=== PATIENT | female | born 1930 | race Caucasian/White ===

== ENCOUNTER 2018-01-11 10:06 | Emergency (ER) | payer MEDICARE, BC ==
[2018-01-11 10:39] LABS: #Basophils 0.1 thou/uL (0.0-0.2); #Eosinphils 0.1 thou/uL (0.0-0.7); #Lymphocytes 1.4 thou/uL (1.20-3.40); #Monocytes 0.6 thou/uL (0.11-0.59); #Neutrophils 5.5 thou/uL (1.40-6.50); %Basophils 0.7 % (0.0-1.0); %Eosinophils 0.9 % (0.0-10.0); %Lymphocytes 17.8 % (21.0-51.0); %Monocytes 8.5 % (0.0-10.0); %Neutrophils 72.1 % (42.0-75.0); Hemoglobin 12.8 g/dL (12.0-16.0); Mean Corpuscular HGB CONC 33.1 g/dL (32.0-36.0); Mean Corpuscular Hemoglobin 30.2 pg (27.0-31.0); Mean Platelet Volume 6.1 fL (7.4-10.4); Platelet Count 313 thou/uL (130-400); RBC Distribution Width 11.9 % (11.5-14.5); Red Blood Cell (RBC) Count 4.26 mill/uL (4.20-5.40); White Blood Cell (WBC) Count 7.6 thou/uL (4.8-10.8)
[2018-01-11 10:57] LABS: ALT (SGPT) 17 U/L (8-55); AST (SGOT) 23 U/L (5-34); Albumin 4.4 g/dL (3.4-4.8); Alkaline Phosphatase 81 U/L (40-150); Anion Gap 13 mmol/L (10-20); BUN (Urea Nitrogen) 17 mg/dL (9.8-20.1); Bilirubin, Total 0.9 mg/dL (0.2-1.2); Calc. Creatinine Clearance 0 mL/min (70-130); Calcium 9.6 mg/dL (7.8-10.44); Carbon Dioxide 26 mmol/L (23-31); Chloride 92 mmol/L (98-107); Estimated GFR-MDRD 63; Glucose 117 mg/dL (83-110); Protein, Total 7.4 g/dL (6.0-8.3); Sodium 127 mmol/L (136-145)
[2018-01-11 11:02] LABS: CKMB 2.1 ng/mL (0-6.6); Troponin I Less than 0.010 ng/mL (< 0.028)
[2018-01-11 12:07] LABS: Bilirubin Negative (Negative); Blood, Urine Negative (Negative); Clarity CLOUDY (Clear); Glucose, Urine (Dipstick) Negative (Negative); Leukocyte Negative (Negative); Nitrite Negative (Negative); Protein, Urine (Dipstick) Negative (Neg-Trace); pH, Urine 7.5 (5.0-9.0)
== END 2018-01-11 14:16 | disposition home or self-care (01) ==
LOC: ERS 10:06
DX: R11.2 Nausea with vomiting, unspecified (principal); E78.5 Hyperlipidemia, unspecified; I10 Essential (primary) hypertension
CPT/HCPCS: 36415; 80053; 81003; 82553; 84484; 85025; 93005; 96360; 96361

== ENCOUNTER 2018-01-15 13:44 | Inpatient (IN) | payer MEDICARE, BC ==
[2018-01-15 15:41] LABS: #Basophils 0.1 thou/uL (0.0-0.2); #Eosinphils 0.2 thou/uL (0.0-0.7); #Lymphocytes 1.6 thou/uL (1.20-3.40); %Basophils 0.7 % (0.0-1.0); %Eosinophils 1.8 % (0.0-10.0); %Lymphocytes 18.4 % (21.0-51.0); %Monocytes 11.4 % (0.0-10.0); %Neutrophils 67.7 % (42.0-75.0); Hemoglobin 11.5 g/dL (12.0-16.0); Mean Corpuscular HGB CONC 33.4 g/dL (32.0-36.0); Mean Corpuscular Hemoglobin 30.7 pg (27.0-31.0); Mean Corpuscular Volume 91.9 fL (78.0-98.0); Mean Platelet Volume 6.4 fL (7.4-10.4); Platelet Count 271 thou/uL (130-400); Red Blood Cell (RBC) Count 3.74 mill/uL (4.20-5.40); White Blood Cell (WBC) Count 8.8 thou/uL (4.8-10.8)
[2018-01-15 15:53] LABS: ALT (SGPT) 11 U/L (8-55); AST (SGOT) 18 U/L (5-34); Albumin 3.6 g/dL (3.4-4.8); Alkaline Phosphatase 68 U/L (40-150); Anion Gap 10 mmol/L (10-20); BUN (Urea Nitrogen) 23 mg/dL (9.8-20.1); Bilirubin, Total 0.4 mg/dL (0.2-1.2); Calc. Creatinine Clearance 0 mL/min (70-130); Calcium 8.7 mg/dL (7.8-10.44); Carbon Dioxide 26 mmol/L (23-31); Chloride 94 mmol/L (98-107); Estimated GFR-MDRD 65; Globulin 2.5 g/dL (2.4-3.5); Glucose 93 mg/dL (83-110); Lipase 38 U/L (8-78); Potassium 3.7 mmol/L (3.5-5.1); Protein, Total 6.1 g/dL (6.0-8.3); Sodium 126 mmol/L (136-145)
--- NOTE | 2018-01-15 16:08 | RAD ---
ABDOMEN TWO VIEWS CHEST ONE VIEW 01/15/18 HISTORY: 87-year-old female with history of pain. No significant acute intrathoracic disease. There is atherosclerosis of the aorta with some ectasia. Somewhat S-shaped scoliosis of the lower thoracic and lumbar spines. Gas and fecal material noted in the colon. No free intraperitoneal air. No evidence for bowel obstruction. IMPRESSION: No bowel obstruction or free intraperitoneal air. 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 Atherosclerosis of the aorta with some ectasia. No acute intrathoracic disease. POS: [facility]
[2018-01-15 17:15] LABS: Bilirubin Negative (Negative); Blood, Urine Negative (Negative); Clarity CLEAR (Clear); Glucose, Urine (Dipstick) Negative (Negative); Leukocyte Moderate (Negative); Nitrite Negative (Negative); Protein, Urine (Dipstick) Negative (Neg-Trace); Specific Gravity, Urine 1.005 (1.002-1.036)
[2018-01-15 17:17] LABS: Bacteria/HPF None Seen HPF (None Seen); Hyaline Casts/LPF 0-3 HYALINE CAST LPF (0-3 Hyaline); Pathc Cast-AUWi Flag 0.14 (0-2.49); RBC/HPF 0-3 HPF (0-3); Squamous Epithelial None Seen HPF (0-3)
[2018-01-15] MEDS ORDERED: Sodium Chloride 0.9% 1,000 ML IV SCH (17:34)
[2018-01-15] MEDS ORDERED: Senokot 8.6 MG TAB PO PRN (17:34)
[2018-01-15] MEDS ORDERED: Ondansetron HCl/PF 4 MG/2 ML Vial IVP PRN (17:34)
[2018-01-15] MEDS ORDERED: Acetaminophen 325 MG TAB PO PRN (17:34)
[2018-01-15] MEDS ORDERED: Guaifenesin DM 100-10/5 ML UDCUP PO PRN (17:34)
[2018-01-15 18:14] LABS: Thyroid Stimulating Hormone 1.4975 uIU/mL (0.35-4.94)
[2018-01-15] MEDS: Docusate 100 MG CAP PO SCH (19:54)
[2018-01-15] MEDS: Rosuvastatin 20 MG TAB PO SCH (19:54)
[2018-01-15] MEDS: Lisinopril 10 MG TAB PO SCH (19:54)
[2018-01-15] MEDS: Famotidine 20 MG TAB PO SCH (19:55)
[2018-01-15 21:33] LABS: Anion Gap 11 mmol/L (10-20); BUN (Urea Nitrogen) 19 mg/dL (9.8-20.1); Calc. Creatinine Clearance 0 mL/min (70-130); Calcium 8.8 mg/dL (7.8-10.44); Carbon Dioxide 26 mmol/L (23-31); Chloride 95 mmol/L (98-107); Estimated GFR-MDRD 67; Glucose 107 mg/dL (83-110); Potassium 3.6 mmol/L (3.5-5.1); Sodium 128 mmol/L (136-145)
--- NOTE | 2018-01-15 23:10 | HP ---
REASON FOR ADMISSION: Severe dehydration, hyponatremia. HISTORY OF PRESENT ILLNESS: Patient gives history of having intractable nausea , vomiting, and went to see her primary care physician on Thursday. She was given 2 liters of IV fluid along with nausea medications. Her initial sodium level was 127. Two days later, patient was still having nauseating feeling and was not able to keep anything down and had gone to see her primary care physician. A repeat lab was done which was 126 sodium. She was feeling dizzy and in fact was taking Zofran 3-4 times a day. Her labs came back to her primary care this morning and patient was asked to go to the emergency room as her sodium was not improving and patient was getting symptomatic. Patient states she is also constipated and her last bowel movement was 3 days back. No prior diarrhea. She is not nauseated at present. She has never had colonoscopy in the past as far she could remember. No complaints of any specific weakness in any of the extremities. PAST MEDICAL/SURGICAL HISTORY: Hypertension, coronary artery disease with prior stent placed in 09/1997, dyslipidemia right wrist/thumb surgery. CURRENT MEDICATIONS: Patient is on Norvasc 5 mg daily, Bystolic 10 mg daily, lisinopril 20 mg daily, Crestor 20 mg p.o. at bedtime, fish oil 3 grams daily, aspirin 81 mg daily, vitamin D3 of 2000 units p.o. daily. ALLERGIES: NORCO, IODINE, PHENOBARBITAL, [place] BARBITURATES. PERSONAL HISTORY: Does not abuse alcohol or drugs. She lives at [facility] assisted living with her . She ambulates by herself. FAMILY HISTORY: Both parents are . Father had history of diabetes. Mother of myocardial infarction and coronary artery disease at the age of 51 years. REVIEW OF SYSTEMS: The following complete review of systems was negative, unless otherwise mentioned in the HPI or below: Constitutional: Weight loss or gain, ability to conduct usual activities. Skin: Rash, itching. Eyes: Double vision, pain. ENT/Mouth: Nose bleeding, neck stiffness, pain, tenderness. Cardiovascular: Palpitations, dyspnea on exertion, orthopnea. Respiratory: Shortness of breath, wheezing, cough, hemoptysis, fever or night sweats. Gastrointestinal: Poor appetite, abdominal pain, heartburn, nausea, vomiting, constipation, or diarrhea. Genitourinary: Urgency, frequency, dysuria, nocturia. Musculoskeletal: Pain, swelling. Neurologic/Psychiatric: Anxiety, depression. Allergy/Immunologic: Skin rash, bleeding tendency. PHYSICAL EXAMINATION: GENERAL: Patient is an 87-year-old female who is currently not in any acute distress. VITAL SIGNS: Blood pressure 162/58, pulse 58 per minute, respiratory rate 18 per minute, temperature 97.7 degrees Fahrenheit, saturating 95% on room air. NECK: Supple, no elevated JVD. HEENT: Eyes, extraocular muscles intact. Pupils reacting to light. Oral cavity, mucous membranes are dry. No exudates or congestion. CARDIOVASCULAR: S1, S2 heard. Regular rhythm. RESPIRATORY: Air entry 1+ bilaterally. No rales or rhonchi. ABDOMEN: Soft. Mild tenderness in the lower quadrants. No rigidity or guarding. Bowel sounds are heard. EXTREMITIES: No peripheral edema or calf tenderness. VASCULAR SYSTEM: Peripheral pulses 2+ bilateral, no ischemic ulcerations or gangrene. CENTRAL NERVOUS SYSTEM: No gross focal motor deficits noted. Patient is alert and oriented well. PSYCHIATRIC: Patient's mood is euthymic. No hallucinations or delusions. LABORATORY AND X-RAY FINDINGS: White count of 8.8, H&H 11 and 34, platelet count 271 with 67% neutrophils. Sodium 126. Serum chloride is 94, serum bicarbonate 26, BUN 23, creatinine 0.8, serum glucose is 93. Serum osmolality is 267. TSH 1.49. BNP is 29. Liver enzymes within normal limits. Albumin is 3.6. UA shows moderate leukocyte esterase with 11-20 wbc's, but no bacteria seen. Acute abdominal series plain x-ray done shows no bowel obstruction or free intraperitoneal air. There is a scoliosis with lumbar spine and thoracic spine spondylosis seen in the stool in the colon. CLINICAL IMPRESSION AND PLAN: Patient will be admitted to medical floor for hyponatremia, moderate to severe dehydration. She will be on normal saline at 70 mL per hour. We will continue her home medications of Norvasc, Crestor, Bystolic, and fish oil for now. Lisinopril will be switched to 10 mg twice daily. We will obtain a metabolic panel in the morning. Hyponatremia workup is being done. We will see the trend of sodium levels. If this normalizes likely, the patient could go home tomorrow. If not, she might have to stay until it gets normalized or at least close to normal prior to discharge. We will continue to closely monitor her on medical floor. Code status was discussed with the patient and she wants to be DNR. Her power of senior attorney is her . DEION
[2018-01-16 05:17] LABS: #Basophils 0.1 thou/uL (0.0-0.2); #Eosinphils 0.3 thou/uL (0.0-0.7); #Lymphocytes 1.4 thou/uL (1.20-3.40); #Monocytes 0.9 thou/uL (0.11-0.59); #Neutrophils 4.3 thou/uL (1.40-6.50); %Basophils 0.7 % (0.0-1.0); %Lymphocytes 20.8 % (21.0-51.0); %Neutrophils 61.4 % (42.0-75.0); Hemoglobin 12.3 g/dL (12.0-16.0); Mean Corpuscular HGB CONC 33.6 g/dL (32.0-36.0); Mean Corpuscular Hemoglobin 30.8 pg (27.0-31.0); Mean Corpuscular Volume 91.5 fL (78.0-98.0); Mean Platelet Volume 6.4 fL (7.4-10.4); Platelet Count 281 thou/uL (130-400); RBC Distribution Width 11.9 % (11.5-14.5); White Blood Cell (WBC) Count 6.9 thou/uL (4.8-10.8)
[2018-01-16 05:36] LABS: Anion Gap 8 mmol/L (10-20); BUN (Urea Nitrogen) 17 mg/dL (9.8-20.1); Calc. Creatinine Clearance 0 mL/min (70-130); Calcium 9.4 mg/dL (7.8-10.44); Carbon Dioxide 30 mmol/L (23-31); Chloride 97 mmol/L (98-107); Estimated GFR-MDRD 68; Glucose 93 mg/dL (83-110); Potassium 4.3 mmol/L (3.5-5.1); Sodium 131 mmol/L (136-145)
[2018-01-16 05:51] LABS: Creatinine, Urine 26.98 mg/dL (47-110)
[2018-01-16 06:36] VITALS: BMI 18.8
[2018-01-16] MEDS: Docusate 100 MG CAP PO SCH ×2 (08:43→20:46)
[2018-01-16] MEDS: Amlodipine 10 MG TAB PO SCH (08:44)
[2018-01-16] MEDS: Lisinopril 10 MG TAB PO SCH (08:44)
[2018-01-16] MEDS: Famotidine 20 MG TAB PO SCH ×2 (08:44→20:46)
[2018-01-16] MEDS: Enoxaparin Sodium 40 MG/0.4 ML SYRINGE SC SCH (08:45)
[2018-01-16] MEDS: Polyethylene Glycol 3350 17 GM Packet PO SCH (08:51)
--- NOTE | 2018-01-16 09:32 | CON ---
DATE OF CONSULTATION: 01/15/2018 at 7:00 p.m. NEPHROLOGY CONSULTATION REASON FOR CONSULTATION: Hyponatremia. HISTORY OF PRESENT ILLNESS: This is a very pleasant 87-year-old female who presented to the hospital for feeling dehydrated. The patient was noted to have low sodium, so I was consulted. Sodium was 1 26 on admission. The patient was given normal saline with improvement in sodium. At time of examina tion, sodium was 128, osmolality was 267. Patient denies any other complaints. PAST MEDICAL HISTORY: Significant for hypertension, coronary artery disease, stent, hyperlipidemia. HOME MEDICATIONS: List reviewed. HOSPITAL MEDICATIONS: List reviewed. ALLERGIES: Reviewed. FAMILY HISTORY: Negative for ESRD. REVIEW OF SYSTEMS: A 15-point review of systems was performed and was negative except for positives noted above. GENERAL: Weakness- HEAD: Headache- NECK: No swelling or lumps. NOSE: No epistaxis or discharge. EYES: No diplopia or pain. RESPIRATORY: Dyspnea- CARDIOVASCULAR: Chest pain- GASTROINTESTINAL: Nausea- /MANAGER RESEARCH: Hematuria- MUSCULOSKELETAL: No joint pain. NEUROPSYCHIATIC SYSTEMS: No suicidal ideation. No ideation. SKIN: Denies any rash or ulcer. CONSTITUTIONAL: No fever or chills. PHYSICAL EXAMINATION: GENERAL: Patient is awake, alert. VITAL SIGNS: Afebrile, pulse 59, breathing 16, blood pressure 159/68. HEAD/NECK: Normocephalic. Atraumatic. EYES: EOMI. No deformity. EARS: Clear. No ulcers. NOSE: Intact. No lesions. MOUTH: Clear. No discharge. THROAT: Clear. No exudate. LUNGS: Clear. No crackles. CARDIAC: S1, S2. No rub. ABDOMEN: Benign. BS+. GENITALIA/RECTUM: Banks absent. BACK/EXTREMITIES: Edema 0+ Ulcer- NEUROLOGICAL: Alert and motor intact. SKIN: Rash- Bruise- LYMPHATICS: Edema- Ulcer- LABORATORY DATA: Show creatinine 0.8, sodium 128. ASSESSMENT AND RECOMMENDATIONS: 1. 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 Recommend fluid restriction. 2. Hypertension, stable. 3. Medications based on GFR are appropriate. We will follow labs in the morning.
--- NOTE | 2018-01-16 11:15 | PRG ---
DATE OF SERVICE: 01/16/2018 SUBJECTIVE: This is an 87-year-old female being seen for hyponatremia. The patient denies any nause a, vomiting, or chest pain. PHYSICAL EXAMINATION: GENERAL: Patient is awake, alert. VITAL SIGNS: Afebrile, pulse 59, breathing 16, blood pressure 159/68. HEAD/NECK: Normocephalic. Atraumatic. EYES: EOMI. No deformity. EARS: Clear. No ulcers. NOSE: Intact. No lesions. MOUTH: Clear. No discharge. THROAT: Clear. No exudate. LUNGS: Clear. No crackles. CARDIAC: S1, S2. No rub. ABDOMEN: Benign. BS+. GENITALIA/RECTUM: Banks absent. BACK/EXTREMITIES: Edema 0+ Ulcer- NEUROLOGICAL: Alert and motor intact. SKIN: Rash- Bruise- LYMPHATICS: Edema- Ulcer- LABORATORY DATA: Show sodium 131. ASSESSMENT AND RECOMMENDATIONS: 1. Hyponatremia, improved. 2. Chronic kidney disease stage 2, stable. 3. Hypertension, stable. Recommend a 1500 mL fluid restriction.
--- NOTE | 2018-01-16 11:24 | PDOC.PN ---
- Subjective Encounter Start Date: 01/16/18 Encounter Start Time: 10:40 Subjective: awake, oriented well, no sob or specific weaness -: is ambulating in room - Objective Resuscitation Status: Resuscitation Status DNR:Do Not Resuscitate MAR Reviewed: Yes Vital Signs & Weight: Vital Signs (12 hours) Temp Pulse Resp BP BP BP Pulse Ox 01/16/18 08:44 59 L 159/68 H 01/16/18 08:00 97.9 F 59 L 16 159/68 H 96 01/16/18 04:00 97.5 F L 54 L 18 153/65 H 98 01/16/18 00:00 97.5 F L 54 L 18 130/61 94 L Weight Weight 113 lb 7 oz Result Diagrams: 01/16/18 04:36 01/16/18 04:36 Phys Exam - Physical Examination HEENT: PERRLA, moist MMs Neck: no JVD, supple Respiratory: no wheezing, no rales Cardiovascular: RRR, no significant murmur Gastrointestinal: soft, non-tender, positive bowel sounds Musculoskeletal: no edema, pulses present Neurological: non-focal, moves all 4 limbs Psychiatric: normal affect, A&O x 3 Dx/Plan (1) Hyponatremia Code(s): E87.1 - HYPO-OSMOLALITY AND HYPONATREMIA Status: Acute (2) Dehydration Code(s): E86.0 - DEHYDRATION Status: Resolved (3) HTN (hypertension) Code(s): I10 - ESSENTIAL (PRIMARY) HYPERTENSION Status: Chronic Qualifiers: Hypertension type: essential hypertension Qualified Code(s): I10 - Essential (primary) hypertension (4) Dyslipidemia Code(s): E78.5 - HYPERLIPIDEMIA, UNSPECIFIED Status: Chronic (5) CAD (coronary artery disease) Code(s): I25.10 - ATHSCL HEART DISEASE OF [place] CORONARY ARTERY W/O ANG PCTRS Status: Chronic Qualifiers: Coronary Disease-Associated Artery/Lesion type: [place] artery [place] vs. transplanted heart: [place] heart Associated angina: without angina Qualified Code(s): I25.10 - Atherosclerotic heart disease of [place] coronary artery without angina pectoris - Plan sodium is 131 this am and improving -: encourage po intake -: to ambulate prn -: continue norvasc, lisinopril, asp and crestor -: dc plan in am * . Review of Systems - Medications/Allergies Allergies/Adverse Reactions: Allergies Allergy/AdvReac Type Severity Reaction Status Date / Time Barbiturates Allergy Verified 01/15/18 19:39 Medications: Current Medications Acetaminophen (Tylenol) 650 mg PO Q4H PRN PRN Reason: Headache/Fever or Pain Amlodipine Besylate (Norvasc) 10 mg PO DAILY [facility] Last Admin: 01/16/18 08:44 Dose: 10 mg Aspirin (Aspirin Chewable) 81 mg PO DAILY [facility] Last Admin: 01/16/18 08:44 Dose: 81 mg Docusate Sodium (Colace) 100 mg PO BID [facility] Last Admin: 01/16/18 08:43 Dose: 100 mg Enoxaparin Sodium (Lovenox) 40 mg SC 0900 [facility] Last Admin: 01/16/18 08:45 Dose: 40 mg Famotidine (Pepcid) 20 mg PO BID [facility] Last Admin: 01/16/18 08:44 Dose: 20 mg Guaifenesin/Dextromethorphan (Robitussin Dm) 15 ml PO Q4H PRN PRN Reason: Cough Lisinopril (Zestril) 10 mg PO BID [facility] Last Admin: 01/16/18 08:44 Dose: 10 mg Ondansetron HCl (Zofran) 4 mg IVP Q6H PRN PRN Reason: Nausea/Vomiting Polyethylene Glycol (Miralax) 17 gm PO DAILY [facility] Last Admin: 01/16/18 08:51 Dose: 17 gm Rosuvastatin Calcium (Crestor) 20 mg PO HS [facility] Last Admin: 01/15/18 19:54 Dose: 20 mg Senna (Senokot) 2 tab PO HSPRN PRN PRN Reason: Constipation Sodium Chloride (Flush - Normal Saline) 10 ml IVF Q12HR [facility] Last Admin: 01/16/18 08:45 Dose: 10 ml Sodium Chloride (Flush - Normal Saline) 10 ml IVF PRN PRN PRN Reason: Saline Flush
[2018-01-16] MEDS: Rosuvastatin 20 MG TAB PO SCH (20:46)
[2018-01-17 06:05] LABS: Anion Gap 12 mmol/L (10-20); BUN (Urea Nitrogen) 29 mg/dL (9.8-20.1); Calc. Creatinine Clearance 29 mL/min (70-130); Calcium 9.6 mg/dL (7.8-10.44); Carbon Dioxide 28 mmol/L (23-31); Chloride 96 mmol/L (98-107); Estimated GFR-MDRD 46; Glucose 95 mg/dL (83-110); Potassium 4.5 mmol/L (3.5-5.1); Sodium 131 mmol/L (136-145)
[2018-01-17] MEDS: Polyethylene Glycol 3350 17 GM Packet PO SCH (08:22)
[2018-01-17] MEDS: Enoxaparin Sodium 40 MG/0.4 ML SYRINGE SC SCH (08:22)
[2018-01-17] MEDS: Famotidine 20 MG TAB PO SCH (08:23)
[2018-01-17] MEDS: Docusate 100 MG CAP PO SCH (08:27)
[2018-01-17] MEDS: Amlodipine 10 MG TAB PO SCH (08:27)
[2018-01-17 08:28] VITALS: BP 166/73
[2018-01-17] MEDS ORDERED: Ciprofloxacin 500 MG TAB PO SCH ×2 (08:30→20:00)
[2018-01-17 08:40] VITALS: TEMP 98.1
[2018-01-17] MEDS ORDERED: Lisinopril 20 MG TAB PO SCH (09:00)
--- NOTE | 2018-01-17 11:28 | PDOC.PN ---
- Subjective Encounter Start Date: 01/17/18 Encounter Start Time: 09:00 Subjective: is amb, no weakness or nausea/diarrhea -: had bm yesterday -: feels good - Objective Resuscitation Status: Resuscitation Status DNR:Do Not Resuscitate MAR Reviewed: Yes Vital Signs & Weight: Vital Signs (12 hours) Temp Pulse Resp BP BP Pulse Ox 01/17/18 08:27 71 166/73 H 01/17/18 08:23 166/73 H 01/17/18 08:00 98.1 F 71 16 166/73 H 95 Weight Admit Weight 113 lb 7 oz Weight 127 lb 8 oz I&O: 01/16/18 01/17/18 01/18/18 06:59 06:59 06:59 Intake Total 900 480 Balance 900 480 Result Diagrams: 01/16/18 04:36 01/17/18 05:23 Phys Exam - Physical Examination HEENT: PERRLA, moist MMs Neck: no JVD, supple Respiratory: no wheezing, no rales Cardiovascular: RRR, no significant murmur Gastrointestinal: soft, non-tender, positive bowel sounds Musculoskeletal: no edema, pulses present Neurological: non-focal, moves all 4 limbs Psychiatric: normal affect, A&O x 3 Dx/Plan (1) Hyponatremia Code(s): E87.1 - HYPO-OSMOLALITY AND HYPONATREMIA Status: Acute Comment: resolving (2) Dehydration Code(s): E86.0 - DEHYDRATION Status: Resolved (3) HTN (hypertension) Code(s): I10 - ESSENTIAL (PRIMARY) HYPERTENSION Status: Chronic Qualifiers: Hypertension type: essential hypertension Qualified Code(s): I10 - Essential (primary) hypertension (4) Dyslipidemia Code(s): E78.5 - HYPERLIPIDEMIA, UNSPECIFIED Status: Chronic (5) CAD (coronary artery disease) Code(s): I25.10 - ATHSCL HEART DISEASE OF [place] CORONARY ARTERY W/O ANG PCTRS Status: Chronic Qualifiers: Coronary Disease-Associated Artery/Lesion type: [place] artery [place] vs. transplanted heart: [place] heart Associated angina: without angina Qualified Code(s): I25.10 - Atherosclerotic heart disease of [place] coronary artery without angina pectoris - Plan hemo/neurostable -: dc pt home -: sodium around 131 x 2 days * .
--- NOTE | 2018-01-19 00:43 | DIS ---
DATE OF ADMISSION: 01/15/2018 DATE OF DISCHARGE: 01/17/2018 DISCHARGE DISPOSITION: To home. PRIMARY DISCHARGE DIAGNOSIS: Severe hyponatremia, likely due to dehydration. SECONDARY DISCHARGE DIAGNOSES: Hypertension, dyslipidemia, coronary artery disease. PROCEDURES DONE DURING HOSPITALIZATION: The patient had acute abdominal series exam done, which show ed no evidence of bowel obstruction. There was stool in the colon. H and H 12 and 36, platelet coun t 281,000. Initial sodium was 126, discharge numbers are 131. TSH 2.89. BNP was 33. DISCHARGE MEDICATIONS: Norvasc 5 mg daily, aspirin 81 mg daily, vitamin D3 1000 units p.o. daily, li sinopril 20 mg daily, Bystolic 10 mg daily, fish oil 1000 mg p.o. daily, Crestor 20 mg daily, ciprofl oxacin 500 mg p.o. twice daily for UTI, MiraLax 17 g daily. ALLERGIES: Allergic to BARBITURATES. INPATIENT CONSULTS: Dr. Dong for Nephrology. DISCHARGE PLAN: The patient to follow up with primary care physician in 1 week. BRIEF COURSE DURING HOSPITALIZATION: The patient initially was sent from primary care physician's of [place] as her sodium was persistently low. She had severe nausea and vomiting and was not keeping anyt jeff down for almost a week prior to arrival here. The patient was gently hydrated for [id number] evere dehydration and hyponatremia. She has responded well to above measures. Her sodium has been c onsistently around 131. Prior to discharge, she is ambulating without any assistive devices and tole rating oral solid diet. She is hemodynamically and neurologically stable. Please see a [id number] documentation for the day of discharge.
== END 2018-01-17 10:11 | disposition home or self-care (01) | DRG 644 ==
LOC: ERS 13:44 → T4-B 16:41
PROVIDERS: ADMIT Internal Medicine; ATTEND Internal Medicine
DX: E22.2 Syndrome of inappropriate secretion of antidiuretic hormone (principal); N39.0 Urinary tract infection, site not specified; E86.0 Dehydration; Z66 Do not resuscitate; E78.5 Hyperlipidemia, unspecified; I25.10 Atherosclerotic heart disease of native coronary artery without angina pectoris; Z91.81 History of falling; Z95.5 Presence of coronary angioplasty implant and graft; K59.00 Constipation, unspecified; I12.9 Hypertensive chronic kidney disease with stage 1 through stage 4 chronic kidney disease, or unspecified chronic kidney disease; N18.2 Chronic kidney disease, stage 2 (mild)
CPT/HCPCS: 36415; 74022; 80048; 80053; 81003; 81015; 82570; 83690; 83880; 83930; 83935; 84300; 84443; 84560; 85025; 96360; A4216; G8978-GP-CI; G8979-GP-CI; G8980-GP-CI; J1650

== ENCOUNTER 2018-02-10 12:53 | Outpatient (CLI) | payer MEDICARE, BC ==
--- NOTE | 2018-02-10 15:28 | CT ---
BRAIN CT WITHOUT IV CONTRAST: HISTORY: An 87-year-old female with a history of SIADH, syndrome of inappropriate ADH reduction. Memory loss. FINDINGS: Mild atrophy and chronic white matter ischemic change. No mass or midline shift. No acute hemorrhag e. Sella turcica is not enlarged. Sinuses and mastoids are clear, except for some mild mucus in the sphenoid sinus. IMPRESSION: No significant acute intracranial process. No mass or bleed. Minimal mucus within the sphenoid sinu s. POS: [facility]
== END 2018-02-10 12:54 | disposition home or self-care (01) ==
LOC: BICCT 12:53
PROVIDERS: ATTEND Family Medicine
DX: E22.2 Syndrome of inappropriate secretion of antidiuretic hormone (principal)
CPT/HCPCS: 70450

== ENCOUNTER 2018-10-29 18:14 | Inpatient (IN) | payer MEDICARE, BC ==
[2018-10-29] MEDS ORDERED: Ondansetron ODT 4 MG TAB ONE (18:46)
[2018-10-29 19:17] LABS: #Lymphocytes 1.1 thou/uL (1.20-3.40); #Monocytes 0.8 thou/uL (0.11-0.59); #Neutrophils 9.3 thou/uL (1.40-6.50); %Basophils 0.4 % (0.0-1.0); %Eosinophils 0.3 % (0.0-10.0); %Lymphocytes 9.8 % (21.0-51.0); %Monocytes 7.1 % (0.0-10.0); %Neutrophils 82.5 % (42.0-75.0); Hemoglobin 13.3 g/dL (12.0-16.0); Mean Corpuscular HGB CONC 33.7 g/dL (32.0-36.0); Mean Corpuscular Hemoglobin 30.4 pg (27.0-31.0); Mean Corpuscular Volume 90.2 fL (78.0-98.0); Mean Platelet Volume 6.3 fL (7.4-10.4); Platelet Count 351 thou/uL (130-400); RBC Distribution Width 11.9 % (11.5-14.5); Red Blood Cell (RBC) Count 4.38 mill/uL (4.20-5.40); White Blood Cell (WBC) Count 11.3 thou/uL (4.8-10.8)
[2018-10-29 19:33] LABS: Bilirubin Negative (Negative); Blood, Urine Trace (Negative); Clarity Turbid (Clear); Glucose, Urine (Dipstick) Normal (Negative); Leukocyte 500 Leu/uL (Negative); Nitrite 2+ (Negative); Protein, Urine (Dipstick) 20 mg/dL (Neg-Trace); Squamous Epithelial 0-3 HPF (0-3); Urobilinogen Normal mg/dL (Less than 2); WBC/HPF Greater than 50 HPF (0-3)
[2018-10-29 19:38] LABS: ALT (SGPT) 12 U/L (8-55); AST (SGOT) 20 U/L (5-34); Albumin 4.5 g/dL (3.4-4.8); Alkaline Phosphatase 129 U/L (40-150); Anion Gap 15 mmol/L (10-20); BUN (Urea Nitrogen) 12 mg/dL (9.8-20.1); Bilirubin, Total 0.8 mg/dL (0.2-1.2); Calc. Creatinine Clearance 0 mL/min (70-130); Calcium 9.8 mg/dL (7.8-10.44); Carbon Dioxide 24 mmol/L (23-31); Chloride 84 mmol/L (98-107); Estimated GFR-MDRD 70; Globulin 2.9 g/dL (2.4-3.5); Glucose 119 mg/dL (83-110); Potassium 3.3 mmol/L (3.5-5.1); Protein, Total 7.4 g/dL (6.0-8.3); Sodium 120 mmol/L (136-145)
[2018-10-29 19:39] LABS: Bacteria/HPF 4+ HPF (None Seen)
[2018-10-29] MEDS ORDERED: cefTRIAXone\\ROCEPHIN 1 GM VIAL ONE (20:42)
[2018-10-30] MEDS ORDERED: Acetaminophen 325 MG TAB PO PRN (07:41)
[2018-10-30] MEDS ORDERED: Sodium Chloride 0.9% 1,000 ML IV SCH (08:00)
[2018-10-30 08:15] LABS: #Basophils 0.1 thou/uL (0.0-0.2); #Eosinphils 0.1 thou/uL (0.0-0.7); #Neutrophils 9.1 thou/uL (1.40-6.50); %Basophils 0.5 % (0.0-1.0); %Eosinophils 0.5 % (0.0-10.0); %Lymphocytes 8.9 % (21.0-51.0); %Monocytes 9.3 % (0.0-10.0); %Neutrophils 80.8 % (42.0-75.0); Hemoglobin 12.6 g/dL (12.0-16.0); Mean Corpuscular Hemoglobin 30.5 pg (27.0-31.0); Mean Corpuscular Volume 89.5 fL (78.0-98.0); Mean Platelet Volume 6.2 fL (7.4-10.4); Platelet Count 304 thou/uL (130-400); RBC Distribution Width 11.8 % (11.5-14.5); Red Blood Cell (RBC) Count 4.14 mill/uL (4.20-5.40); White Blood Cell (WBC) Count 11.2 thou/uL (4.8-10.8)
[2018-10-30] MEDS: Aspirin 81 mg Enteric Coated Tablet PO SCH (08:27)
[2018-10-30] MEDS: Nebivolol HCl 5 MG TAB PO SCH (08:27)
--- NOTE | 2018-10-30 08:29 | HP ---
CHIEF COMPLAINT: Bladder infection. PRIMARY CARE PROVIDER: Dr. Doan. HISTORY OF PRESENT ILLNESS: This is an 88-year-old female with history of hypertension, coronary artery disease and stent, dyslipidemia, hospitalization for hyponatremia secondary to SIADH by chart review, who presents to the emergency room secondary to concern for bladder infection. The patient reports all symptoms started yesterday and include nausea, vomiting, weakness, and dysuria. She denies any hematuria, fevers, or chills, and denies any chest pain or difficulty breathing. She also denies any precipitating or relieving factors. The patient states she was directed to the emergency room due to progressive symptoms. In the ER, the patient received 4 mg of Zofran oral dissolving tablet and 1 g of ceftriaxone, and the hospitalist called for admission due to UTI as well as hyponatremia. ALLERGIES: BARBITURATES, IODINE, PHENOBARBITAL, AND SULFA. PAST MEDICAL HISTORY: 1. Hypertension. 2. Coronary artery disease with history of stents. 3. Dyslipidemia. PAST SURGICAL HISTORY: 1. Cardiac stents. 2. Left wrist surgery. CURRENT MEDICATIONS: The patient does not know, and review of her last discharge summary from December 2017, it was discussed that current medications are unknown. SOCIAL HISTORY: The patient drinks one alcohol drink per week, she is and her , Jeff, is her surrogate decision maker and she is a full code. FAMILY HISTORY: Significant for diabetes and coronary disease. REVIEW OF SYSTEMS: Positive for dysuria, nausea, and vomiting. Negative for abdominal pain, vision changes, headaches, chest pain, shortness of breath, fevers, chills, and hematuria. All remaining review of systems are reviewed and negative. PHYSICAL EXAMINATION: VITAL SIGNS: Blood pressure 130/60, temperature 97.7, pulse 66, respirations 16 , and sats 93% on room air. GENERAL: Awake, alert, responsive, in no apparent distress. Able to speak in regular sentences. HEENT: Her pupils are equal and round. No scleral icterus. Oral mucosa is pink, appears dry. NECK: Supple. Nontender. LYMPHATICS: No palpable cervical or supraclavicular lymphadenopathy. LUNGS: Clear to auscultation bilateral. No audible wheezing, rhonchi, or rales. HEART: Normal S1, S2. Regular rate and rhythm. No significant murmurs. ABDOMEN: Soft with present bowel sounds. Nontender. Nondistended. EXTREMITIES: No clubbing, cyanosis, or edema. SKIN: No visible rashes. NEUROLOGIC: No gross deficits. PSYCH: The patient appears euthymic. LABORATORY DATA: Personally reviewed. CBC; 11.3, 13.3, 39.5, 351 with 82% neutrophils. Sodium 120, potassium 3.3, chloride 84, bicarb 24, BUN 12, creatinine 0.78, and glucose 119. LFTs are normal. Urinalysis shows present ketones, nitrite, leukocyte esterase, 11-20 red blood cells and greater than 50 white blood cells. IMPRESSION: 1. Urinary tract infection. 2. Hyponatremia, likely multifactorial to include hypovolemic hyponatremia from nausea and vomiting as well as syndrome of inappropriate antidiuretic hormone secretion based on history. 3. Hypertension, currently normotensive. 4. Coronary artery disease with history of stents. 5. Dyslipidemia. PLAN: 1. Admission to the hospital. 2. Continuing the Rocephin and I will order a urine culture as I do not see this one ordered. 3. Free water fluid restriction, gentle hydration, and Nephrology consultation with Dr. Carlin. 4. I reviewed her medications from her discharge summary in December and we will order her Bystolic at 10 mg daily with hold parameters, aspirin, and statin. Hold on another antihypertensives and the nursing staff is going to assist with medication reconciliation. 5. Fall precautions. 6. A stat repeat basic metabolic panel is ordered. 7. DVT prophylaxis with pneumatic compression devices. 8. GI prophylaxis is not indicated. The patient will be written for a regular diet. 9. Code status is full and surrogate decision maker is the patient's . Reviewed the plan of care with the patient, who demonstrates understanding; no questions or further needs at the end of evaluation. The patient is at high risk given age, comorbidities, and current presentation. Job ID: [id number] [facility]
[2018-10-30 08:40] LABS: Anion Gap 12 mmol/L (10-20); BUN (Urea Nitrogen) 10 mg/dL (9.8-20.1); Calc. Creatinine Clearance 42 mL/min (70-130); Calcium 9.2 mg/dL (7.8-10.44); Carbon Dioxide 26 mmol/L (23-31); Chloride 85 mmol/L (98-107); Estimated GFR-MDRD 79; Glucose 122 mg/dL (83-110); Sodium 120 mmol/L (136-145)
[2018-10-30] MEDS ORDERED: NS 0.9% w/ 40 MEQ KCL 1,000 ML IV SCH (09:30)
[2018-10-30] MEDS ORDERED: Potassium Chloride 20 MEQ TAB PO SCH (09:30)
[2018-10-30 14:02] LABS: Anion Gap 13 mmol/L (10-20); BUN (Urea Nitrogen) 9 mg/dL (9.8-20.1); Calc. Creatinine Clearance 43 mL/min (70-130); Calcium 8.9 mg/dL (7.8-10.44); Carbon Dioxide 23 mmol/L (23-31); Chloride 86 mmol/L (98-107); Estimated GFR-MDRD 82; Glucose 94 mg/dL (83-110); Potassium 3.4 mmol/L (3.5-5.1)
[2018-10-30 14:15] LABS: Sodium 119 mmol/L (136-145)
[2018-10-30] MEDS ORDERED: Tolvaptan 15 MG TAB PO ONE (15:30)
[2018-10-30 16:19] VITALS: BMI 17.3
[2018-10-30 19:09] LABS: Anion Gap 13 mmol/L (10-20); BUN (Urea Nitrogen) 9 mg/dL (9.8-20.1); Calc. Creatinine Clearance 42 mL/min (70-130); Carbon Dioxide 24 mmol/L (23-31); Chloride 92 mmol/L (98-107); Estimated GFR-MDRD 78; Glucose 98 mg/dL (83-110); Potassium 4.3 mmol/L (3.5-5.1); Sodium 125 mmol/L (136-145)
[2018-10-30] MEDS: Rosuvastatin 20 MG TAB PO SCH (21:03)
[2018-10-30] MEDS: cefTRIAXone\\ROCEPHIN 1 GM in Sodium Chloride 0.9% 100 ML IVPB SCH (21:05)
[2018-10-31 00:43] LABS: Anion Gap 13 mmol/L (10-20); BUN (Urea Nitrogen) 10 mg/dL (9.8-20.1); Calc. Creatinine Clearance 41 mL/min (70-130); Calcium 9.6 mg/dL (7.8-10.44); Carbon Dioxide 23 mmol/L (23-31); Chloride 96 mmol/L (98-107); Estimated GFR-MDRD 77; Glucose 100 mg/dL (83-110); Potassium 4.2 mmol/L (3.5-5.1); Sodium 128 mmol/L (136-145)
[2018-10-31 05:54] LABS: #Basophils 0.1 thou/uL (0.0-0.2); #Eosinphils 0.1 thou/uL (0.0-0.7); #Lymphocytes 1.4 thou/uL (1.20-3.40); #Monocytes 0.9 thou/uL (0.11-0.59); #Neutrophils 5.3 thou/uL (1.40-6.50); %Basophils 0.7 % (0.0-1.0); %Eosinophils 1.3 % (0.0-10.0); %Lymphocytes 18.4 % (21.0-51.0); %Monocytes 11.6 % (0.0-10.0); %Neutrophils 68.1 % (42.0-75.0); Hemoglobin 13.2 g/dL (12.0-16.0); Mean Corpuscular HGB CONC 36.6 g/dL (32.0-36.0); Mean Corpuscular Hemoglobin 33.7 pg (27.0-31.0); Mean Corpuscular Volume 92.1 fL (78.0-98.0); Mean Platelet Volume 6.7 fL (7.4-10.4); Platelet Count 252 thou/uL (130-400); RBC Distribution Width 12.9 % (11.5-14.5); Red Blood Cell (RBC) Count 3.91 mill/uL (4.20-5.40); White Blood Cell (WBC) Count 7.9 thou/uL (4.8-10.8)
[2018-10-31] MEDS: Nebivolol HCl 5 MG TAB PO SCH (07:47)
[2018-10-31] MEDS: Aspirin 81 mg Enteric Coated Tablet PO SCH (07:49)
[2018-10-31 10:22] LABS: Anion Gap 12 mmol/L (10-20); BUN (Urea Nitrogen) 13 mg/dL (9.8-20.1); Calc. Creatinine Clearance 42 mL/min (70-130); Calcium 9.8 mg/dL (7.8-10.44); Carbon Dioxide 26 mmol/L (23-31); Chloride 97 mmol/L (98-107); Estimated GFR-MDRD 79; Glucose 117 mg/dL (83-110); Potassium 3.9 mmol/L (3.5-5.1); Sodium 131 mmol/L (136-145)
--- NOTE | 2018-10-31 11:33 | PDOC.PN ---
- Subjective Encounter Start Date: 10/31/18 (f/u hyponatremia) Encounter Start Time: 11:31 Subjective: Pt feeling better today - denies any chest pain/n/v/abd pain -: reports memory is better - states it has been worsening over -: the past 6 months and they are in between PCP's - Objective Resuscitation Status - Order Detail: 10/30/18 07:41 Resuscitation Status Routine Resuscitation Status: FULL: Full Resuscitation Vital Signs & Weight: Vital Signs (12 hours) Temp Pulse Resp BP Pulse Ox 10/31/18 08:00 95 10/31/18 07:01 97.5 F L 62 16 135/57 L 95 10/31/18 04:17 98.1 F 71 24 H 151/74 H 95 Weight Admit Weight 104 lb Weight 104 lb 1.6 oz I&O: 10/30/18 10/31/18 11/01/18 06:59 06:59 06:59 Intake Total 360 1376.2 Balance 360 1376.2 Result Diagrams: 10/31/18 04:38 10/31/18 09:45 Phys Exam - Physical Examination Constitutional: NAD Respiratory: no wheezing, no rhonchi faint bibasilar rales Cardiovascular: RRR, no significant murmur Gastrointestinal: soft, non-tender Musculoskeletal: no edema Neurological: non-focal, moves all 4 limbs Psychiatric: normal affect Dx/Plan (1) Hyponatremia Code(s): E87.1 - HYPO-OSMOLALITY AND HYPONATREMIA Status: Acute Comment: resolving (2) UTI (urinary tract infection) Status: Acute Qualifiers: Urinary tract infection type: acute cystitis (3) Cognitive impairment Code(s): R41.89 - OTH SYMPTOMS AND SIGNS W COGNITIVE FUNCTIONS AND AWARENESS Status: Chronic (4) CAD (coronary artery disease) Code(s): I25.10 - ATHSCL HEART DISEASE OF [place] CORONARY ARTERY W/O ANG PCTRS Status: Chronic Qualifiers: Coronary Disease-Associated Artery/Lesion type: [place] artery [place] vs. transplanted heart: [place] heart Associated angina: without angina Qualified Code(s): I25.10 - Atherosclerotic heart disease of [place] coronary artery without angina pectoris (5) Dyslipidemia Code(s): E78.5 - HYPERLIPIDEMIA, UNSPECIFIED Status: Chronic - Plan * acute on chronic hyponatremia likely SIADH - improved with one dose of vaptin - appreciate NEphrology consult * * UTI - on rocephin, await UCx result - gram neg quique * * memory changes - may in part be from infection and hyponatremia - discussed with /son. Recommend outpatient eval with Neurology - consider Dr. Kebede * * continue selective meds - bystolic, statin, aspirin. Requested bring in list or bottles of home meds to reconcile * * pt/ot for strength/balance * * dvt prophy - scd's * gi prophy - not indicated * code status full * * reviewed plan of care with patient/family, no questions or further needs at end of eval * anticipate home in the next few days.
--- NOTE | 2018-10-31 14:16 | PRG ---
DATE OF SERVICE: 10/31/2018 SUBJECTIVE: Patient was seen and examined at bedside and overnight events noted. Patient denies any shortness of breath or chest pain or palpitation. No history of nausea or vomiting or diarrhea or fever or chills or cramps. OBJECTIVE: GENERAL: This is an elderly female, in no apparent distress. VITAL SIGNS: Temperature 97.5. Heart rate 62. Respiratory rate 16. Blood pressure 135/67. HEENT: Atraumatic, normocephalic. Oral mucosa is moist NECK: Supple. CARDIOVASCULAR: S1, S2 heard. Rate and rhythm regular. RESPIRATORY: Clear to auscultation. GASTROINTESTINAL: Abdomen is soft. MUSCULOSKELETAL: No tenderness. No edema. DERMATOLOGIC: No skin rash. NEUROLOGIC: Alert and awake and oriented X3. No focal neurologic deficits. Moving all the extremities. PSYCHIATRIC: Mood and affect normal. LABORATORY DATA: Potassium 3.9, BUN is 13, creatinine 0.7, and sodium is 131. ASSESSMENT AND PLAN: 1. Hyponatremia and continue on fluid restriction. Normal labs done today and monitor sodium. Check labs in the morning. 2. Edema, controlled. 3. Hypo-osmolality. 4. Hypertension, stable. 5. . 6. Urinary tract infection. Continue antibiotics. Plan to monitor sodium closely. Limit fluid intake. Job ID: [id number]
[2018-10-31] MEDS: Rosuvastatin 20 MG TAB PO SCH (20:22)
[2018-10-31] MEDS: cefTRIAXone\\ROCEPHIN 1 GM in Sodium Chloride 0.9% 100 ML IVPB SCH (20:48)
[2018-11-01 06:28] LABS: Anion Gap 12 mmol/L (10-20); BUN (Urea Nitrogen) 18 mg/dL (9.8-20.1); Calc. Creatinine Clearance 39 mL/min (70-130); Calcium 9.3 mg/dL (7.8-10.44); Carbon Dioxide 26 mmol/L (23-31); Chloride 98 mmol/L (98-107); Estimated GFR-MDRD 72; Glucose 86 mg/dL (83-110); Potassium 4.3 mmol/L (3.5-5.1); Sodium 132 mmol/L (136-145)
[2018-11-01] MEDS: Nebivolol HCl 5 MG TAB PO SCH (09:11)
[2018-11-01] MEDS: Aspirin 81 mg Enteric Coated Tablet PO SCH (09:11)
--- NOTE | 2018-11-01 09:21 | CON ---
DATE OF CONSULTATION: 10/30/2018 CONSULTING PHYSICIAN: Dr. Jansen. REASON FOR CONSULTATION: Hyponatremia. REASON FOR ADMISSION: Not feeling well. HISTORY OF PRESENT ILLNESS: An 88-year-old female with history of hypertension and currently is hyperlipidemic, came to the hospital with not feeling well and found to have hyponatremia. Nephrology is consulted. 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 No fever. No chills. No abdominal pain. No chest pain. PAST MEDICAL HISTORY: Positive for hypertension, ascites, coronary artery disease, hyponatremia, hyperlipidemia. PAST SURGICAL HISTORY: Cardiac stent, left wrist surgery. HOME MEDICATIONS: . ALLERGIES: TO BARBITURATES AND SHELLFISH. SOCIAL HISTORY: No smoking, alcohol, or drugs. FAMILY HISTORY: Nothing contributory. REVIEW OF SYSTEMS: CONSTITUTIONAL: Negative for weight loss or gain, ability to conduct usual activities. SKIN: Negative for rash, itching. EYES: Negative for double vision, pain. ENT/MOUTH: Negative for nose bleeding, neck stiffness, pain, tenderness. CARDIOVASCULAR: Negative for palpitations, dyspnea on exertion, orthopnea. RESPIRATORY: Negative for shortness of breath, wheezing, cough, hemoptysis, fever or night sweats. GASTROINTESTINAL: Negative for poor appetite, abdominal pain, heartburn, nausea, vomiting, constipation, or diarrhea. GENITOURINARY: Negative for urgency, frequency, dysuria, nocturia. MUSCULOSKELETAL: Negative for pain, swelling. NEUROLOGIC/PSYCHIATRIC: Negative for anxiety, depression. ALLERGY/IMMUNOLOGIC: Negative for skin rash, bleeding tendency. PHYSICAL EXAMINATION: GENERAL: Elderly female, in no apparent distress. VITAL SIGNS: Temperature 98.1, pulse 60, respiratory rate 18, blood pressure 117/61. HEENT: Atraumatic, normocephalic. Oral mucosa is moist. NECK: Supple. CV: S1 and S2 heard. RESPIRATORY: Clear. GI: Abdomen is soft. MUSCULOSKELETAL: 1+ edema. DERMATOLOGIC: No skin rash. NEUROLOGIC: Alert and awake. PSYCHIATRIC: Mood and affect normal. LABORATORY DATA: Sodium 120, potassium is 3.0, BUN is 10, creatinine 0.7. ASSESSMENT AND PLAN: 1. Hyponatremia, most likely from hypovolemia. Agree with IV fluids for now. May be a combination of SIADH to continue on IV fluids at 50 mL an hour. Recheck sodium later on and q.6 hours. 2. We will check urine studies. 3. Hypokalemia, replace. 4. Edema, controlled. 5. History of hypertension. Titrate medication. 6. Continue IV fluids. Monitor sodium closely. We will follow. Check urine studies. Job ID: [id number]
[2018-11-01] MEDS ORDERED: Amlodipine 5 MG TAB PO SCH (14:30)
[2018-11-01] MEDS ORDERED: Lisinopril 10 MG TAB PO SCH (14:30)
[2018-11-01 15:35] VITALS: TEMP 97.7
[2018-11-01] MEDS: cefTRIAXone\\ROCEPHIN 1 GM in Sodium Chloride 0.9% 100 ML IVPB SCH (15:44)
[2018-11-01 15:50] VITALS: BP 173/93
--- NOTE | 2018-11-02 01:48 | DIS ---
DATE OF ADMISSION: 10/30/2018 DATE OF DISCHARGE: 11/01/2018 CONSULTANTS: Nephrology, Dr. Carlin and Dr. Dong. MEDICATIONS: Reconciled at discharge. New medication are: 1. Cefdinir 300 mg b.i.d. for 4 more days for urinary tract infection. 2. Florastor 250 mg daily for one month. Medications to resume: 1. Norvasc 5 mg daily. 2. Aspirin 81 mg daily. 3. Vitamin D3 of 2000 units daily. 4. Lisinopril 20 mg daily. 5. Bystolic 10 mg daily. 6. Fish oil 1000 mg daily. 7. Crestor 20 mg daily. FINAL DIAGNOSES: 1. Urinary tract infection secondary to Citrobacter. 2. Hyponatremia, severe secondary to syndrome of inappropriate antidiuretic hormone secretion and hypovolemia, improved. SECONDARY DIAGNOSES: 1. Hypertension. 2. Coronary artery disease. 3. Dyslipidemia. 4. Memory changes. HISTORY OF PRESENT ILLNESS: Ms. Dolan is an 88-year-old female with the above medical problems, who presented to the emergency room with a complaint of nausea, vomiting, weakness, and dysuria. These symptoms started the day prior. Please see history and physical for more details. HOSPITAL COURSE: The patient initially was hydrated due to the hypovolemia associated with nausea and vomiting. However, on her next sodium check, it was down to 119 from 120, and IV fluids were discontinued. She was evaluated by Dr. Carlin of Nephrology, with urine studies consistent with SIADH. She then received one dose of tolvaptan, and has responded well. Her sodium level has increased and on day of discharge, it is up to 132. By review in the past, her sodium is in the low 130s. She should be on a fluid-restricted diet of about 1 L per day, and follow up with Dr. Carlin in the outpatient clinic in 1 week. For the urinary tract infection secondary to Citrobacter, the patient was treated with ceftriaxone and has tolerated this well. The leukocytosis has resolved, her symptoms have resolved. She will go home on 4 days of cefdinir to complete treatment. The Citrobacter is resistant to cefoxitin and therefore, Keflex will not be used. The patient's blood pressures were normal to slightly high while here. She was continued on her home Bystolic. On day of discharge, her blood pressure did reach a peak of 190 systolic for which she was asymptomatic. Her lisinopril and Norvasc are being added back today and she will continue on her usual medications. The patient overall doing well, ambulating with the assistance of a walker and physical therapy, and does meet criteria for discharge to home. PHYSICAL EXAMINATION: VITAL SIGNS: Blood pressure 178/68, pulse 66, temperature 97.8, sats 94% on room air, respirations 18. GENERAL: Awake, alert, responsive, in no apparent distress. Able to speak in full sentences. LUNGS: Clear to auscultation bilateral with good air movement. HEART: Normal S1 and S2. Regular rate and rhythm. No significant murmur. ABDOMEN: Soft with present bowel sounds. Nontender, nondistended. EXTREMITIES: No edema. ZAZUETA FINDINGS AND TEST RESULTS: CBC; 7.9, 13.2, 36, 252 with a peak white blood cell count of 11.3. Chemistry today; 132, 4.3, 98, 26, 18, 0.76, 86 with a calcium of 9.3. On admission, her sodium was 120, decreased to 119, later in the day was 125 and the next morning 131. Serum osmolality 270. Urine osmolality 376, urine sodium 81. Urine culture shows Citrobacter resistant to cefoxitin, indeterminate to nitrofurantoin. DIET: Heart healthy, fluid restricted to 1 L per day. FOLLOWUP: 1. Followup is recommended with the primary care provider, which is Goldie BABIN who is covering for Dr. Doan within a week to review this hospitalization and any other health needs. 2. Follow up with Dr. Carlin within a week to monitor the SIADH. ACTIVITY: As tolerated. CODE STATUS: Full. DISCHARGE DISPOSITION: Home. Reviewed with the patient this hospitalization, the importance of followup and to seek care precautions. She demonstrates understanding. TIME SPENT: Total time coordinating discharge is 40 minutes. Job ID: [id number]
[2018-11-02] MEDS ORDERED: Lisinopril 20 MG TAB PO SCH (09:00)
[2018-11-02] MEDS ORDERED: Amlodipine 5 MG TAB PO SCH (09:00)
== END 2018-11-01 17:26 | disposition home or self-care (01) | DRG 644 ==
LOC: ERS 18:14 → T4-B 20:50 → OBSVTOIN 10-30 07:41
PROVIDERS: ADMIT Internal Medicine; ATTEND Internal Medicine
DX: E22.2 Syndrome of inappropriate secretion of antidiuretic hormone (principal); N39.0 Urinary tract infection, site not specified; I10 Essential (primary) hypertension; I25.10 Atherosclerotic heart disease of native coronary artery without angina pectoris; E78.5 Hyperlipidemia, unspecified; E87.6 Hypokalemia; E86.1 Hypovolemia; R41.89 Other symptoms and signs involving cognitive functions and awareness; B96.89 Other specified bacterial agents as the cause of diseases classified elsewhere; Z88.2 Allergy status to sulfonamides; Z88.8 Allergy status to other drugs, medicaments and biological substances; Z95.5 Presence of coronary angioplasty implant and graft
CPT/HCPCS: 36415; 80048; 81003; 81015; 83930; 83935; 84300; 85025; 87077; 87086; 87186; 96365; J0696; J3480; J3490; Q0162

== ENCOUNTER 2018-11-08 12:33 | Emergency (ER) | payer MEDICARE, BC ==
[2018-11-08 13:29] LABS: #Eosinphils 0.1 thou/uL (0.0-0.7); #Lymphocytes 1.1 thou/uL (1.20-3.40); #Monocytes 0.8 thou/uL (0.11-0.59); #Neutrophils 6.3 thou/uL (1.40-6.50); %Basophils 0.3 % (0.0-1.0); %Eosinophils 0.7 % (0.0-10.0); %Lymphocytes 13.4 % (21.0-51.0); %Monocytes 9.5 % (0.0-10.0); %Neutrophils 76.1 % (42.0-75.0); Mean Corpuscular HGB CONC 33.7 g/dL (32.0-36.0); Mean Corpuscular Hemoglobin 30.7 pg (27.0-31.0); Mean Corpuscular Volume 91.2 fL (78.0-98.0); Platelet Count 302 thou/uL (130-400); RBC Distribution Width 12.1 % (11.5-14.5); Red Blood Cell (RBC) Count 4.22 mill/uL (4.20-5.40); White Blood Cell (WBC) Count 8.2 thou/uL (4.8-10.8)
[2018-11-08] MEDS ORDERED: Acetaminophen 500 MG TAB ONE (13:35)
[2018-11-08 13:55] LABS: ALT (SGPT) 13 U/L (8-55); AST (SGOT) 19 U/L (5-34); Albumin 4.2 g/dL (3.4-4.8); Alkaline Phosphatase 111 U/L (40-150); Anion Gap 14 mmol/L (10-20); BUN (Urea Nitrogen) 12 mg/dL (9.8-20.1); Bilirubin, Total 0.6 mg/dL (0.2-1.2); CK (CPK) 57 U/L (29-168); Calc. Creatinine Clearance 0 mL/min (70-130); Calcium 10.1 mg/dL (7.8-10.44); Carbon Dioxide 25 mmol/L (23-31); Chloride 91 mmol/L (98-107); Estimated GFR-MDRD 71; Globulin 2.7 g/dL (2.4-3.5); Glucose 103 mg/dL (83-110); Protein, Total 6.9 g/dL (6.0-8.3); Sodium 126 mmol/L (136-145)
--- NOTE | 2018-11-08 14:42 | RAD ---
RADIOGRAPH CHEST 1 VIEW: DATE: 11/08/2018 HISTORY: 88-year-old female with chest pain FINDINGS: There are no airspace densities, pulmonary edema, pneumothorax, or cardiomegaly. The lateral costophr enic angles are sharp. Compared to the prior study of 01/07/2019, there is a new finding of sclerosis representing callus at multiple bilateral nonacute rib fractures, perhaps subacute. IMPRESSION: 1. No acute cardiopulmonary findings. 2. Multiple healing bilateral rib fractures.
== END 2018-11-08 14:50 | disposition home or self-care (01) ==
LOC: ERS 12:33
DX: M62.830 Muscle spasm of back (principal); E87.1 Hypo-osmolality and hyponatremia; E78.5 Hyperlipidemia, unspecified; I10 Essential (primary) hypertension; F03.90 Unspecified dementia, unspecified severity, without behavioral disturbance, psychotic disturbance, mood disturbance, and anxiety
CPT/HCPCS: 36415; 71045; 80053; 82550; 84484; 85025; 93005

== ENCOUNTER 2018-11-09 12:44 | Emergency (ER) | payer MEDICARE, BC ==
[2018-11-09 13:19] LABS: #Lymphocytes 1.1 thou/uL (1.20-3.40); #Monocytes 0.6 thou/uL (0.11-0.59); #Neutrophils 8.8 thou/uL (1.40-6.50); %Basophils 0.2 % (0.0-1.0); %Eosinophils 0.4 % (0.0-10.0); %Lymphocytes 10.3 % (21.0-51.0); %Monocytes 5.4 % (0.0-10.0); %Neutrophils 83.8 % (42.0-75.0); Hemoglobin 13.7 g/dL (12.0-16.0); Mean Corpuscular Hemoglobin 30.8 pg (27.0-31.0); Mean Corpuscular Volume 90.7 fL (78.0-98.0); Platelet Count 324 thou/uL (130-400); Red Blood Cell (RBC) Count 4.43 mill/uL (4.20-5.40); White Blood Cell (WBC) Count 10.4 thou/uL (4.8-10.8)
[2018-11-09 13:50] LABS: ALT (SGPT) 13 U/L (8-55); AST (SGOT) 18 U/L (5-34); Albumin 4.4 g/dL (3.4-4.8); Alkaline Phosphatase 114 U/L (40-150); Anion Gap 14 mmol/L (10-20); BUN (Urea Nitrogen) 19 mg/dL (9.8-20.1); Bilirubin, Total 0.8 mg/dL (0.2-1.2); Calc. Creatinine Clearance 0 mL/min (70-130); Calcium 10.5 mg/dL (7.8-10.44); Carbon Dioxide 28 mmol/L (23-31); Chloride 86 mmol/L (98-107); Estimated GFR-MDRD 69; Globulin 3.1 g/dL (2.4-3.5); Glucose 111 mg/dL (83-110); Potassium 3.8 mmol/L (3.5-5.1); Protein, Total 7.5 g/dL (6.0-8.3); Sodium 124 mmol/L (136-145)
[2018-11-09] MEDS ORDERED: Ondansetron PF 4 MG/2 ML Vial ONE (13:57)
[2018-11-09 14:13] LABS: Bilirubin Negative (Negative); Blood, Urine Negative (Negative); Clarity Clear (Clear); Glucose, Urine (Dipstick) Normal (Negative); Leukocyte 25 Leu/uL (Negative); Nitrite Negative (Negative); Protein, Urine (Dipstick) 20 mg/dL (Neg-Trace); Squamous Epithelial None Seen HPF (0-3); Urobilinogen Normal mg/dL (Less than 2)
[2018-11-09 14:30] LABS: Bacteria/HPF None Seen HPF (None Seen)
[2018-11-09] MEDS ORDERED: Ondansetron ODT 8 MG TAB ONE (17:17)
== END 2018-11-09 17:25 | disposition home or self-care (01) ==
LOC: ERS 12:44
DX: E87.1 Hypo-osmolality and hyponatremia (principal); E78.5 Hyperlipidemia, unspecified; I10 Essential (primary) hypertension; F03.90 Unspecified dementia, unspecified severity, without behavioral disturbance, psychotic disturbance, mood disturbance, and anxiety
CPT/HCPCS: 36415; 80053; 81003; 81015; 83605; 84484; 85025; 93005; 96361; 96374; J2405

== ENCOUNTER 2020-01-24 14:45 | Inpatient (IN) | payer MEDICARE, BC, OTHER ==
--- NOTE | 2020-01-24 15:48 | RAD ---
EXAM: LEFT KNEE FOUR VIEWS: 01/24/20 HISTORY: Injury from a fall. COMPARISON: 06/19/17. FINDINGS: Bone demineralization. Evidence for arterial vascular calcifications. No acute fracture or dislocatio n. No suprapatellar recess fluid distention. IMPRESSION: Bone demineralization. No acute fracture or dislocation. POS: RRE
--- NOTE | 2020-01-24 16:04 | RAD ---
EXAM: LEFT HIP TWO VIEWS: 01/24/20 HISTORY: Injury from a trip and fall. FINDINGS: Bone demineralization. Nondisplaced somewhat irregularly shaped fracture through the intertrochanteri c region of the left femur without significant malalignment or foreshortening. IMPRESSION: Irregular essentially nondisplaced intertrochanteric fracture left femur. POS: RRE
--- NOTE | 2020-01-24 16:08 | RAD ---
EXAM: CHEST ONE VIEW: 01/24/20 HISTORY: Chronic back pain. Left hip fracture. COMPARISON: 11/08/18. FINDINGS: Severe bone demineralization. Vertical height loss of multiple thoracic vertebral bodies. Heart size is within normal limits. No confluent pneumonia, overt edema or pleural effusion. Healed bilateral ri b fractures. Biapical pleural thickening. IMPRESSION: No significant acute intrathoracic disease. Bone demineralization with multiple thoracic spine compre ssion fractures and bilateral rib fractures. Biapical pleural thickening. Atherosclerosis of the aorta. POS: RRE
--- NOTE | 2020-01-24 16:27 | CT ---
CT BRAIN WITHOUT CONTRAST: HISTORY:Fall, headache COMPARISON:02/10/2018 FINDINGS: There are foci of decreased attenuation in the periventricular white matter, consistent with chronic small vessel ischemic disease. Changes of cortical atrophy and old lacunar infarction in the left thalamus are seen. No evidence of acute infarct, hemorrhage, midline shift or abnormal extra-axial fluid collections is seen. The ventricular size is appropriate and the basilar cisterns are patent. The bony calvarium is intact. The visualized paranasal sinuses and mastoid air cells are well aerated. IMPRESSION: No CT evidence of acute intracranial process.
[2020-01-24 16:33] LABS: Bilirubin Negative (Negative); Blood, Urine Negative (Negative); Clarity Clear (Clear); Glucose, Urine (Dipstick) Normal (Negative); Ketone, Urine Negative (Negative); Leukocyte Negative Leu/uL (Negative); Nitrite Negative (Negative); Protein, Urine (Dipstick) Negative (Neg-Trace); Specific Gravity, Urine 1.012 (1.002-1.036); Urobilinogen Normal mg/dL (Less than 2); pH, Urine 7.5 (5.0-9.0)
--- NOTE | 2020-01-24 16:34 | CT ---
CT CERVICAL SPINE WITH CORONAL AND SAGITTAL REFORMATIONS AND NO IV CONTRAST: HISTORY: Fall, neck pain FINDINGS: Multilevel degenerative changes are present. There is minimal anterolisthesis of C3 over C4, C4 over C5 and C7 over T1 vertebral bodies. There is loss of cervical lordosis with mild reversal. No fracture, subluxation or facet malalignment is identified. No prevertebral soft tissue swelling is apparent. The visualized lung apices show changes of scarring. IMPRESSION: No CT evidence for acute cervical spine fracture or traumatic subluxation.
[2020-01-24 16:36] LABS: #Eosinphils 0.2 thou/uL (0.0-0.7); #Lymphocytes 1.9 thou/uL (1.20-3.40); #Monocytes 0.7 thou/uL (0.11-0.59); #Neutrophils 4.5 thou/uL (1.40-6.50); %Basophils 0.3 % (0.0-1.0); %Eosinophils 3.3 % (0.0-10.0); %Lymphocytes 25.8 % (21.0-51.0); %Monocytes 9.5 % (0.0-10.0); %Neutrophils 61.1 % (42.0-75.0); Mean Corpuscular HGB CONC 33.9 g/dL (32.0-36.0); Mean Corpuscular Hemoglobin 31.2 pg (27.0-31.0); Mean Corpuscular Volume 92.2 fL (78.0-98.0); Mean Platelet Volume 7.3 fL (7.4-10.4); Platelet Count 316 thou/uL (130-400); RBC Distribution Width 12.4 % (11.5-14.5); Red Blood Cell (RBC) Count 4.47 mill/uL (4.20-5.40); White Blood Cell (WBC) Count 7.3 thou/uL (4.8-10.8)
[2020-01-24 16:43] LABS: PTT 28.5 sec (22.9-36.1); Prothrombin Time 13.3 sec (12.0-14.7)
[2020-01-24 16:48] LABS: Phosphorus 3.3 mg/dL (2.3-4.7)
[2020-01-24] MEDS ORDERED: Dextrose 50% Abboject 50 ML SYRINGE SLOW IVP PRN (16:48)
[2020-01-24] MEDS ORDERED: Dextrose 5% in Water 1,000 ML IV PRN (16:48)
[2020-01-24] MEDS ORDERED: Morphine 2 MG/ML VIAL SLOW IVP PRN (16:48)
[2020-01-24 16:49] LABS: ALT (SGPT) 11 U/L (8-55); AST (SGOT) 19 U/L (5-34); Alkaline Phosphatase 96 U/L (40-110); Anion Gap 10 mmol/L (10-20); BUN (Urea Nitrogen) 19 mg/dL (9.8-20.1); Bilirubin, Total 0.4 mg/dL (0.2-1.2); CK (CPK) 69 U/L (29-168); Calc. Creatinine Clearance 0 mL/min (70-130); Calcium 9.1 mg/dL (7.8-10.44); Carbon Dioxide 27 mmol/L (23-31); Chloride 96 mmol/L (98-107); Estimated GFR-MDRD 73; Globulin 2.8 g/dL (2.4-3.5); Glucose 100 mg/dL (83-110); Magnesium 1.9 mg/dL (1.6-2.6); Potassium 4.1 mmol/L (3.5-5.1); Protein, Total 6.8 g/dL (6.0-8.3); Sodium 129 mmol/L (136-145)
[2020-01-24] MEDS ORDERED: traMADol HCl 50 MG TAB PO PRN ×2 (16:51)
[2020-01-24] MEDS ORDERED: Magnesium 2 GM/50 ML 2 GM in Premix Bag 1 BAG IVPB SCH (17:00)
[2020-01-24] MEDS ORDERED: Sodium Chloride 0.9% 1,000 ML IV SCH (17:00)
[2020-01-24] MEDS ORDERED: Sodium Phosphate 15 MMOL in Sodium Chloride 0.9% 250 ML 250 ML IVPB SCH (17:00)
[2020-01-24] MEDS ORDERED: Fentanyl 100 MCG/2 ML VIAL ONE (17:17)
[2020-01-24] MEDS: Acetaminophen 500 MG TAB PO SCH (18:18)
[2020-01-24] MEDS: Ondansetron PF 4 MG/2 ML Vial IVP PRN (18:18)
[2020-01-24] MEDS ORDERED: CEFAZOLIN 2 GM in Premix Bag 1 BAG IVPB SCH (18:45)
[2020-01-24 19:18] VITALS: BMI 14.6
[2020-01-24] MEDS: Senokot S 8.6-50 MG TAB PO SCH (20:02)
[2020-01-24] MEDS ORDERED: Famotidine/PF 20 mg/2ml Vial SLOW IVP SCH (21:00)
[2020-01-24] MEDS: Ibuprofen 200 MG TAB PO SCH (21:20)
--- NOTE | 2020-01-25 00:10 | HP ---
TRAUMA SURGEON: Dr. Kelly. CONSULTING PHYSICIAN: Dr. Boston. HISTORY OF PRESENT ILLNESS: The patient is 89-year-old female who presented to the emergency department via EMS after a fall at home. The patient has a history of dementia and does not remember the fall. Her family is not at the bedside. The patient lives at assisted living with her ; he also has issues with dementia. It is unclear, but from EMS, the exact cause of the fall. The patient reports that she has been feeling fine recently and has no complaints at the time of my evaluation. It is unclear if she takes any anticoagulations at home as we have not been able to reach the family. Unsure about loss of consciousness. At the time of my evaluation, the patient had no complaints. She denies pain, numbness, and tingling in her bilateral upper and lower extremities, nausea, vomiting, cough, diarrhea, chest pain, shortness of breath. PAST MEDICAL HISTORY: From chart review, I have found that she has hypertension, coronary artery disease, cardiac stents, hyperlipidemia, and a history of SIADH with chronic hyponatremia. PAST SURGICAL HISTORY: Cardiac stents. SOCIAL HISTORY: The patient lives at home with her in an independent living facility. She reports that she does not use a cane or anything to get around. She denies tobacco, drug, or alcohol use. MEDICATIONS: Unknown as the patient is unaware of her medical history. ALLERGIES: BARBITURATES, FISH-CONTAINING PRODUCTS, IODINE, PHENOBARBITAL, AND SHELLFISH DERIVATIVES. PHYSICAL EXAMINATION: VITAL SIGNS: Temperature 98.0, pulse 73, respirations 20, oxygen saturation 97% on room air, blood pressure 170/78. PRIMARY SURVEY: Airway intact. Adequate breath sounds bilaterally. 2+ pulses in bilateral radials, femorals, and DPs. GCS 14, -1 for confusion. This is her baseline. No lacerations, bruising, or external bleeding. SECONDARY SURVEY: HEAD: Normocephalic, atraumatic. No gross palpable skull deformities. EYES: Pupils 3 to 2, equal, round, reactive to light bilaterally. ENT: No signs of trauma. C-SPINE: No step-offs or deformities or tenderness to palpation of thoracic or lumbar spine. CHEST: Nontender. No crepitus. No abrasions or ecchymosis noted. Equal chest movement. ABDOMEN: Soft, nontender, nondistended. PELVIS: Stable to palpation. Tenderness over the left lateral pelvis and thigh. No abrasions or ecchymosis noted. RECTAL: Deferred. GENITOURINARY: Banks in place with clear yellow urine in bag. EXTREMITIES: No gross deformities. No abrasions or ecchymosis noted. 2+ pulses in bilateral radials, femorals, and DPs. BACK/SPINE: No step-offs, deformities, or tenderness to palpation of the thoracic or lumbar spine. No abrasions or ecchymosis noted. NEUROLOGIC: 5/5 strength in bilateral wax engraver, plantar flexion, dorsiflexion. Gross normal sensation x4 extremities. LABORATORY FINDINGS: White count 7.3, hemoglobin 14.0, hematocrit 41.2, platelets 316. INR 1.1, PTT 28.5. Sodium 129, potassium 4.1, chloride 96, bicarb 27, BUN 19, creatinine 0.75, glucose 100, lactic acid 1.3, phosphorus 3.3, magnesium 1.9. Total bilirubin 0.4, AST 19, ALT 11, alkaline phosphatase 96. Troponin less than 0.010. UA is negative for infection or blood. DIAGNOSTIC FINDINGS: Chest x-ray demonstrates no significant acute cardiothoracic disease, bone demineralization with multiple thoracic spine compression fractures and bilateral rib fractures, biapical pleural thickening, atherosclerosis of the aorta. X-ray of the left hip demonstrates irregular, essentially nondisplaced intertrochanteric fracture of the left femur. X-ray of the left knee demonstrates bone demineralization. No acute fracture or dislocation. CT scan of the brain demonstrates no CT evidence of acute intracranial process. CT scan of the C-spine demonstrates no CT evidence of acute spinal fracture or traumatic subluxation. ASSESSMENT: 1. Status post fall. 2. Left intertrochanteric femur fracture. 3. History of hypertension, coronary artery disease, cardiac stents, hyperlipidemia, syndrome of inappropriate antidiuretic hormone secretion, and dementia. PLAN: The patient will be admitted to the Trauma Service. She will have a regular diet and normal saline at 75 an hour for 1 L. She is to go to the OR tomorrow with Orthopedic Surgery for fixation of her left intertrochanteric femur fracture. Postoperatively, she will work with Physical and Occupational Therapy and likely need placement in acute rehab facility. This patient was discussed with Dr. Kelly before this dictation. Job ID: [id number]
[2020-01-25] MEDS: Acetaminophen 500 MG TAB PO SCH ×5 (00:37→23:23)
--- NOTE | 2020-01-25 01:26 | PRG ---
DATE OF SERVICE: 01/24/2020 SUBJECTIVE: The patient was seen during evening rounds, sleeping comfortably in no distress. Respirations are even and nonlabored. The patient is n.p.o. at this time with maintenance IV fluids. Orthopedic Surgery plans to take the patient to the OR for repair of her left intertrochanteric femur fracture. The patient's vital signs are stable and she is afebrile. Urinary output is adequate for age and weight. PLAN: Unchanged. Continue supportive care and pain regimen. PT and OT to evaluate and treat postop. A postacute screen has been placed as the patient will need continued physical and occupational therapy. Job ID: [id number]
[2020-01-25 05:12] LABS: #Lymphocytes 0.7 thou/uL (1.20-3.40); #Monocytes 0.9 thou/uL (0.11-0.59); #Neutrophils 9.8 thou/uL (1.40-6.50); %Basophils 0.3 % (0.0-1.0); %Eosinophils 0.1 % (0.0-10.0); %Lymphocytes 6.5 % (21.0-51.0); %Monocytes 7.6 % (0.0-10.0); %Neutrophils 85.6 % (42.0-75.0); Hemoglobin 12.1 g/dL (12.0-16.0); Mean Corpuscular HGB CONC 34.4 g/dL (32.0-36.0); Mean Corpuscular Hemoglobin 31.6 pg (27.0-31.0); Mean Corpuscular Volume 91.8 fL (78.0-98.0); Mean Platelet Volume 6.9 fL (7.4-10.4); Platelet Count 258 thou/uL (130-400); RBC Distribution Width 12.1 % (11.5-14.5); Red Blood Cell (RBC) Count 3.84 mill/uL (4.20-5.40); White Blood Cell (WBC) Count 11.4 thou/uL (4.8-10.8)
[2020-01-25 05:31] LABS: Anion Gap 14 mmol/L (10-20); BUN (Urea Nitrogen) 15 mg/dL (9.8-20.1); Calc. Creatinine Clearance 38 mL/min (70-130); Calcium 8.3 mg/dL (7.8-10.44); Carbon Dioxide 22 mmol/L (23-31); Chloride 96 mmol/L (98-107); Estimated GFR-MDRD 82; Glucose 120 mg/dL (83-110); Magnesium 2.3 mg/dL (1.6-2.6); Phosphorus 4.7 mg/dL (2.3-4.7); Potassium 4.1 mmol/L (3.5-5.1); Sodium 128 mmol/L (136-145)
[2020-01-25] MEDS: Ibuprofen 200 MG TAB PO SCH ×3 (06:22→21:48)
--- NOTE | 2020-01-25 06:50 | CON ---
DATE OF CONSULTATION: 01/24/2020 REQUESTING PHYSICIAN: Dr. Raymundo Kelly. BRIEF HISTORY OF PRESENT ILLNESS: The patient is an 89-year-old female, who is examined in her hospital room at [facility]. Earlier on January 24, 2020, patient was transported to the hospital by EMS after a ground level fall. The patient does not recall the fall or circumstances surrounding the fall. She reports that she lives with her at an assisted living facility and both she and her do have a history of dementia. Upon evaluation in the emergency department, x-rays of the left hip were obtained and are remarkable for a two-part intertrochanteric femur fracture. As such, the patient admitted to the Trauma Service and Orthopedic consultation requested. Past medical history based on chart review, as patient is not able to provide a significant past medical history and family are unavailable for interview. Includes by report, hypertension, coronary artery disease, hyperlipidemia, history of SIADH. PAST SURGICAL HISTORY: Includes cardiac stent placement. MEDICATIONS: The patient is not able to provide a list of any medications at this time. As I look back at her chart, I did not see a history of a blood thinners. ALLERGIES: SHE HAS SENSITIVITY TO BARBITURATES, PHENOBARBITAL. SOCIAL HISTORY: She lives with her independent living facility. She is an independent ambulator within her small community. She denies alcohol, drug, or tobacco use. FAMILY HISTORY: Noncontributory for this fall. PHYSICAL EXAMINATION: VITAL SIGNS: Temperature 98, heart rate of 73, respiratory rate of 20, and blood pressure 170/78. HEENT: Atraumatic and normocephalic. HEART: Shows a regular rate and rhythm without murmur. LUNGS: Clear to auscultation bilaterally with good breath sounds. ABDOMEN: Soft and nontender with normal bowel sounds. PELVIS: Stable to compression and nontender. EXTREMITIES: Remarkable for bilateral upper extremities, which are atraumatic. She has intact subjective sensation bilaterally. The right lower extremity also atraumatic with normal distal sensation. The left lower extremity is remarkable for groin pain with any type of log-rolling of the thigh. Further motion at the hip was not tested due to the acute nature of her fracture. The knee, ankle, and foot appear atraumatic. She has intact subjective sensation over the dorsal and plantar surfaces of the foot. The thigh and lower leg compartments are soft. LABORATORY DATA: White count of 7.3, hematocrit of 41.2, and 316,000 platelets. Her INR is 1.1. X-RAYS: Two view x-ray of the left hip remarkable for a minimally displaced intertrochanteric femur fracture. Four view x-ray of left knee is remarkable for no fracture. ASSESSMENT: An 89-year-old lady, status post ground level fall with intertrochanteric femur fracture. PLAN: Today, I discussed with the patient that she does have an intertrochanteric femur fracture. I have recommended that we proceed with DHS placement to stabilize the fracture and facilitate return of mobility. I did discuss with the patient risks and benefits of the surgery. Risks include, but are not limited to, bleeding, infection, nerve injury, DVT, PE, loss of limb or life. The patient appears to understand and does wish to proceed. Written consent will be obtained prior to surgery. Job ID: [id number]
[2020-01-25] MEDS ORDERED: Rocuronium Bromide 10 MG/ML (10ML VIAL) ONE (09:49)
[2020-01-25] MEDS ORDERED: PROPOFOL 200 MG/20 ML VIAL ONE (09:49)
[2020-01-25] MEDS ORDERED: Glycopyrrolate 0.2 MG/ML 5 ML SYRINGE ONE (09:49)
[2020-01-25] MEDS ORDERED: Dexamethasone 20 MG/5 ML VIAL ONE (09:49)
[2020-01-25] MEDS ORDERED: Ondansetron PF 4 MG/2 ML Vial ONE ×2 (09:49→18:56)
[2020-01-25] MEDS ORDERED: EPHEDRINE 25 MG/5 ML SYRINGE ONE (09:49)
[2020-01-25] MEDS ORDERED: Lidocaine 1% PF 5 ML VIAL ONE (09:49)
[2020-01-25] MEDS: Polyethylene Glycol 3350 17 GM Packet PO SCH (10:01)
[2020-01-25] MEDS: Senokot S 8.6-50 MG TAB PO SCH ×2 (10:02→21:48)
--- NOTE | 2020-01-25 11:53 | PRG ---
DATE OF SERVICE: 01/25/2020 SUBJECTIVE: The patient is sleeping comfortably in bed. Easily awoken. Denies any pain. Reports that she understands that she is going to Surgery today for her hip fracture. The patient is pleasantly demented and is unable to answer most questions. OBJECTIVE: VITAL SIGNS: Blood pressure 138/55, temperature 97.3, pulse 65, respirations 16, and O2 saturation 96% on room air. GENERAL: An elderly-appearing female, resting comfortably in bed, in no acute distress. HEENT: Normocephalic, atraumatic. RESPIRATORY: Bilateral symmetric chest raise, in no respiratory distress. CARDIAC: Regular rate, regular rhythm. NEUROLOGIC: Pleasantly demented, neurovascularly intact x4. LABORATORY DATA: White blood cell count 11.4, hemoglobin 12.1, hematocrit 35.2, platelets 258. Sodium 128, potassium 4.1, chloride 96, bicarbonate 22, BUN 15, and creatinine 0.68. DIAGNOSTIC IMAGING: None. ASSESSMENT: 1. Status post fall. 2. Left intertrochanteric femur fracture. 3. History of hypertension. 4. Coronary artery disease, status post stent. 5. Hyperlipidemia. 6. SIADH. 7. Dementia. PLAN: The patient is currently n.p.o. with plan to go to OR with Dr. Boston today. She will have regular diet following surgery. She will work with Physical and Occupational Therapy postoperatively and will likely need inpatient rehabilitation. We will medrec the patient's home medications. Continue to provide supportive care and optimize pain management. The patient was seen and evaluated by Dr. Kelly in morning rounds. Plan was discussed with patient who is in agreement. Job ID: [id number]
[2020-01-25 11:59] LABS: SARS-CoV-2 MS2 Positive; SARS-CoV-2 N Gene Negative; SARS-CoV-2 S Gene Negative; SARS-CoV-2 by NAA Not Detected (NotDetected); SARS-CoV-2 orf1ab Negative
[2020-01-25] MEDS ORDERED: Fentanyl 100 MCG/2 ML VIAL ONE ×2 (17:07→18:29)
[2020-01-25] MEDS ORDERED: FLU VACC QS2020-21(65YR UP)/PF 240 MCG/0.7 ML SYRINGE IM ONE (21:00)
[2020-01-25] MEDS ORDERED: Famotidine/PF 20 mg/2ml Vial SLOW IVP SCH (21:00)
--- NOTE | 2020-01-25 22:05 | RAD ---
INTRAOPERATIVE FLUOROSCOPY 01/25/20 HISTORY: ORIF left hip. EXPOSURE: 28.1 seconds. 2.58 mGy. Three operative fluoroscopic images demonstrate internal fixation involving the left hip. There is a gamma nail. Intertrochanteric fracture is identified. IMPRESSION: Fluoroscopy as above. POS: OFF
[2020-01-26] MEDS: Acetaminophen 500 MG TAB PO SCH ×3 (06:10→17:41)
[2020-01-26] MEDS: Ibuprofen 200 MG TAB PO SCH ×3 (06:10→21:11)
[2020-01-26 06:32] LABS: #Lymphocytes 0.6 thou/uL (1.20-3.40); #Monocytes 0.8 thou/uL (0.11-0.59); #Neutrophils 11.3 thou/uL (1.40-6.50); %Basophils 0.1 % (0.0-1.0); %Eosinophils 0.1 % (0.0-10.0); %Lymphocytes 4.8 % (21.0-51.0); %Monocytes 6.3 % (0.0-10.0); %Neutrophils 88.9 % (42.0-75.0); Hemoglobin 10.6 g/dL (12.0-16.0); Mean Corpuscular Hemoglobin 31.2 pg (27.0-31.0); Mean Corpuscular Volume 94.4 fL (78.0-98.0); Mean Platelet Volume 7.2 fL (7.4-10.4); Platelet Count 224 thou/uL (130-400); RBC Distribution Width 12.4 % (11.5-14.5); Red Blood Cell (RBC) Count 3.39 mill/uL (4.20-5.40); White Blood Cell (WBC) Count 12.7 thou/uL (4.8-10.8)
[2020-01-26 07:38] LABS: Anion Gap 11 mmol/L (10-20); BUN (Urea Nitrogen) 13 mg/dL (9.8-20.1); Calc. Creatinine Clearance 39 mL/min (70-130); Calcium 8.4 mg/dL (7.8-10.44); Carbon Dioxide 25 mmol/L (23-31); Chloride 97 mmol/L (98-107); Estimated GFR-MDRD 83; Glucose 116 mg/dL (83-110); Magnesium 1.9 mg/dL (1.6-2.6); Phosphorus 3.4 mg/dL (2.3-4.7); Potassium 4.1 mmol/L (3.5-5.1); Sodium 129 mmol/L (136-145)
--- NOTE | 2020-01-26 07:38 | RAD ---
CHEST 1 VIEW: INDICATION: History of aspiration. COMPARISON: Prior exam dated 11/08/2018. FINDINGS: Chronic lung changes persist. Mild cardiomegaly is stable. Thoracolumbar scoliosis is similar. Com pression abnormality in the mid thoracic spine is stable. Healed rib deformities involving the right posterolateral chest wall are stable. IMPRESSION: No airspace opacity to suggest aspiration. POS: BH
[2020-01-26] MEDS ORDERED: Famotidine 20 MG TAB PO SCH (09:00)
--- NOTE | 2020-01-26 09:33 | PRG ---
DATE OF SERVICE: 01/25/2020 SUBJECTIVE: The patient was seen during evening rounds, resting comfortably, in no distress. The patient's nurse reports that the patient did aspirate earlier in the evening whenever she took her evening pills. The patient was able to cough deeply. The patient is postoperative day 0, status post repair for left IT fracture. Pain has been controlled. Vital signs are stable and the patient is afebrile. Urinary output is adequate for the patient's age and weight. PLAN: We will have Speech evaluate the patient's swallow. Chest x-ray this morning does not show any airspace opacity to suggest aspiration. We will continue to monitor. Continue pain control. Diet recommendations per Speech. Job ID: [id number]
[2020-01-26] MEDS: Lisinopril 20 MG TAB PO SCH (10:52)
[2020-01-26] MEDS: Senokot S 8.6-50 MG TAB PO SCH ×2 (10:53→21:12)
[2020-01-26] MEDS: Nebivolol HCl 5 MG TAB PO SCH (10:53)
[2020-01-26] MEDS: Amlodipine 5 MG TAB PO SCH (10:53)
[2020-01-26] MEDS: Polyethylene Glycol 3350 17 GM Packet PO SCH (10:53)
[2020-01-26] MEDS ORDERED: PHOS-NAK 1 PKT PACK PO SCH (11:30)
[2020-01-26] MEDS ORDERED: Magnesium 2 GM/50 ML 2 GM in Premix Bag 1 BAG IVPB SCH (11:30)
--- NOTE | 2020-01-26 13:43 | PQF ---
CLINICAL DOCUMENTATION CLARIFICATION FORM: Dear Juan Lezama AGACNP-BC Date: 01/26/20 Please exercise your independent, professional judgment in responding to the clarification form. Clinical indicators are provided on the bottom of this form for your review. Please check appropriate box(es): [ ] Protein Calorie Malnutrition: [ ] Mild [ ] Moderate [ ] Severe [ ] Other Malnutrition (please specify) [ ] Underweight without malnutrition [ x ] Cachexia [ ] Other diagnosis [ ] Unable to determine In addition, please specify: Present on Admission (POA): [ x ] Yes [ ] No [ ] Unable to determine For continuity of documentation, please document condition throughout progress notes and discharge summary. Thank You. To be completed by CDI/Coding staff for physician review: CLINICAL INDICATORS - SIGNS / SYMPTOMS / LABS / RESULTS AND LOCATION IN MR DIETARY NOTE 01/24: "UNDERWEIGHT" PATIENT STATES, "I THINK THEY MENTIONED I LOST SOME" "SEVERE FAT WASTING TO ORBITAL REGION AND TRICEPS AND SEVERE MUSCLE WASTING TO INTEROSSEI DORSI, TEMPLES AND CLAVICLES, SUGGESTIVE OF SEVERE MALNUTRITION IN THE CONTEXT OF CHRONIC ILLNESS." BMI 14.7 RISKS: H/O DEMENTIA (H&P- TAGCHEHCHIAN) ADVANCED AGE (H&P) SIADH WITH CHRONIC LOW SODIUM (H&P) CURRENT NEW FRACTURE AND H/O COMPRESSION FRACTURES (H&P) TREATMENT: DIETARY CONSULT 01/24 RECOMMENDATION OF NUTRITIONAL SUPPLEMENTS (DIETARY ASSESSMENT 01/24" SPEECH THERAPY CONSULT FOR SWALLOW EVAL (PN 01/24- GABY) Moderate Malnutrition (in acute illness) Energy Intake: <75% of estimated energy requirement for > 7 days Weight Loss: 1-2%/1 week; 5%/ 1 month; 7.5%/3 months Other: mild body fat loss; mild muscle mass loss; mild fluid accumulation; Severe Malnutrition (in acute illness) Energy Intake: = 50% of estimated energy requirement for = 5 days Weight Loss: >2%/1 week; >5%/1 month; >7.5%/3 months Other: moderate body fat loss; moderate muscle mass loss; moderate- severe fluid accumulation; measurably reduced wearing apparel presser strength Moderate Malnutrition (in chronic illness) Energy Intake: <75% of estimated energy requirement for =1 month Weight Loss: 5%/1 month; 7.5%/3 months; 10%/6 months; 20%/1 year Other: mild body fat loss; mild muscle mass loss; mild fluid accumulation Severe Malnutrition (in chronic illness) Energy Intake: =75% of estimated energy requirement for =1 month Weight Loss: >5%/1 month; >7.5%/3 months; >10%/6 months; >20%/1 year Other: severe body fat loss; severe muscle mass loss; severe fluid accumulation; measurably reduced wearing apparel presser strength CDS Signature: Adriana Colvin RN Phone #: [phone] Date: 01/26/20 This is a permanent part of the Medical Record [facility]
[2020-01-26] MEDS: Aspirin 81 mg Enteric Coated Tablet PO SCH (20:37)
[2020-01-27] MEDS ORDERED: Senokot S 8.6-50 MG TAB PO PRN (00:05)
[2020-01-27] MEDS ORDERED: Polyethylene Glycol 3350 17 GM Packet PO PRN (00:05)
[2020-01-27] MEDS ORDERED: Scopolamine 1.5 mg/72 hour Patch TD SCH (00:15)
[2020-01-27] MEDS: Acetaminophen 500 MG TAB PO SCH ×5 (00:22→23:04)
--- NOTE | 2020-01-27 00:50 | PRG ---
DATE OF SERVICE: 01/26/2020 SUBJECTIVE: The patient remains on the surgical floor awake, alert, in no distress, sitting up watching TV. The patient had her Banks removed earlier today and the patient has been due to void. Later in the evening, nursing staff had the patient up to the restroom. The patient had a large loose bowel movement and then had an episode of diarrhea. The patient also had complained of feeling nauseated and dizzy at that time. OBJECTIVE: VITAL SIGNS: Stable, afebrile. PLAN: Continue supportive care and pain regimen. We will add a scopolamine patch as the patient has been nauseated and dizzy this evening. Continue aspirin for VTE prophylaxis. Encourage oral intake. Job ID: [id number]
[2020-01-27 05:30] LABS: #Basophils 0.1 thou/uL (0.0-0.2); #Eosinphils 0.1 thou/uL (0.0-0.7); #Lymphocytes 1.1 thou/uL (1.20-3.40); #Monocytes 1.1 thou/uL (0.11-0.59); #Neutrophils 9.1 thou/uL (1.40-6.50); %Basophils 0.6 % (0.0-1.0); %Eosinophils 0.7 % (0.0-10.0); %Lymphocytes 9.7 % (21.0-51.0); %Monocytes 9.2 % (0.0-10.0); %Neutrophils 79.8 % (42.0-75.0); Hemoglobin 9.9 g/dL (12.0-16.0); Mean Corpuscular HGB CONC 34.5 g/dL (32.0-36.0); Mean Corpuscular Hemoglobin 31.9 pg (27.0-31.0); Mean Corpuscular Volume 92.4 fL (78.0-98.0); Platelet Count 227 thou/uL (130-400); RBC Distribution Width 12.3 % (11.5-14.5); White Blood Cell (WBC) Count 11.4 thou/uL (4.8-10.8)
[2020-01-27] MEDS: Ibuprofen 200 MG TAB PO SCH ×3 (05:32→21:43)
--- NOTE | 2020-01-27 05:41 | PRG ---
DATE OF SERVICE: 01/26/2020 SUBJECTIVE: The patient was seen on morning rounds with Dr. Wilson. The patient is a pleasantly demented woman sitting up comfortably in her chair. She reports that her pain is well controlled and that she has been ambulating with her walker. She reports that she is tolerating p.o. intake without any nausea or vomiting. Per report, there was concern for aspiration after taking some medication last night, and a chest x-ray was ordered. OBJECTIVE: VITAL SIGNS: Temperature 97.4, pulse 75, respirations 16, O2 saturation 94% on room air, and blood pressure 116/63. GENERAL: An elderly appearing female, sitting comfortably in her bedside chair, in no acute distress. HEENT: Normocephalic and atraumatic. Moist mucous membranes. RESPIRATORY: Bilateral symmetric chest rise. No respiratory distress. EXTREMITIES: Moves all extremities. NEUROLOGIC: Pleasantly demented. Neurovascularly intact x4. LABORATORY DATA: White blood cell count 12.7, hemoglobin 10.6, hematocrit 32, and platelets 224. Sodium 129, potassium 4.1, chloride 97, bicarbonate 25, BUN 13, and creatinine 0.67. DIAGNOSTIC DATA: Chest x-ray: No airspace opacity to suggest aspiration. ASSESSMENT: 1. Status post fall. 2. Left intertrochanteric femur fracture, postop day 1 status post repair. 3. History of hypertension; coronary artery disease, status post stents; hyperlipidemia; syndrome of inappropriate antidiuretic hormone secretion; dementia. PLAN: Encouraged the patient to continue working with PT and OT postop. The patient is currently postop day 1 status post repair of left intertrochanteric femur fracture. On rounds this morning, the patient's Banks is still in. We will discontinue Banks and encourage the patient to ambulate to and from the bathroom. The patient's home medications have been restarted and aspirin 81 mg b.i.d. has been added for DVT prophylaxis. The patient will need rehabilitation following discharge from the hospital. We will continue to provide supportive care and optimize pain management. The patient was seen and evaluated by Dr. Wilson on rounds. Plan was discussed with patient who is in agreement. Job ID: [id number] MTDD
[2020-01-27 06:01] LABS: Anion Gap 9 mmol/L (10-20); BUN (Urea Nitrogen) 15 mg/dL (9.8-20.1); Calc. Creatinine Clearance 39 mL/min (70-130); Calcium 8.2 mg/dL (7.8-10.44); Carbon Dioxide 25 mmol/L (23-31); Chloride 95 mmol/L (98-107); Estimated GFR-MDRD 83; Glucose 105 mg/dL (83-110); Magnesium 1.7 mg/dL (1.6-2.6); Phosphorus 2.5 mg/dL (2.3-4.7); Potassium 3.4 mmol/L (3.5-5.1); Sodium 126 mmol/L (136-145)
[2020-01-27] MEDS ORDERED: Magnesium 2 GM/50 ML 2 GM in Premix Bag 1 BAG IVPB SCH (08:30)
[2020-01-27] MEDS ORDERED: Potassium Phosphate 30 MMOL, Magnesium Sulfate 2 GM in Sodium Chloride 0.9% 250 ML 250 ML IVPB SCH (08:30)
[2020-01-27] MEDS: Amlodipine 5 MG TAB PO SCH (10:07)
[2020-01-27] MEDS: Aspirin 81 mg Enteric Coated Tablet PO SCH ×3 (10:07→21:43)
[2020-01-27] MEDS: Nebivolol HCl 5 MG TAB PO SCH (10:07)
[2020-01-27] MEDS: Lisinopril 20 MG TAB PO SCH (10:07)
--- NOTE | 2020-01-27 10:49 | OP ---
DATE OF PROCEDURE: 01/25/2020 PREOPERATIVE DIAGNOSIS: Left intertrochanteric femur fracture. POSTOPERATIVE DIAGNOSIS: Left intertrochanteric femur fracture. SURGICAL PROCEDURE: Left dynamic hip screw for intertrochanteric femur fracture. ANESTHESIA: General. ESTIMATED BLOOD LOSS: 75 mL. IMPLANT: Synthes 3-hole 135 degree sideplate with 95 mm hip screw. COMPLICATIONS: None. DRAINS: None. SPECIMEN: None. OUTCOME: Satisfactory. INDICATIONS FOR PROCEDURE: The patient is an 89-year-old lady, status post ground-level fall sustaining a left intertrochanteric femur fracture. There was no loss of consciousness. After discussion with the patient and family including risks and benefits, we decided to proceed with a stabilization surgery with a DHS device. Risks and benefits have been discussed. I believe all questions have been answered. DESCRIPTION OF PROCEDURE: The patient was brought to the operating room and a time-out performed followed by induction of general anesthesia. Next, the patient was positioned on the fracture table with the injured extremity held in longitudinal traction and slight internal rotation. The well leg was held in extension at the hip to allow for AP and lateral C-arm imaging of the left hip. Next, a sterile prep and drape was performed in the left lateral thigh. An incision was made just distal to the greater trochanter. After skin was sharply incised, dissection was carried down bluntly to the underlying fascia deyanira. This was incised in line with skin incision and reflected anteriorly and posteriorly revealing the fascia of the vastus lateralis. The fascia of the vastus lateralis was incised and then the muscle belly was swept off the posterior leaflet of the fascia reflecting it anteriorly with radiolucent elevator. Next, a 135 degree jig was used to pass a threaded guidewire through the lateral cortex of the femur up the femoral neck and into the femoral head approaching a [id number] position. Once appropriately positioned, measurement was taken off this guide pin. Next, a step drill was used and passed over the guide pin for preparing the neck and head to accept the hip screw. Next, a 135 degree sideplate with 85-mm hip screw was introduced into the wound with a hip screw driven up the femoral neck into the femoral head under C-arm guidance. The plate was then affixed to the lateral cortex of the femur with three 4.5 mm screws. At the completion of this, there was near anatomic alignment of the fracture and acceptable positioning of hardware. Final C-arm images were obtained and then the wound irrigated with bulb syringe. Next, a closure was performed with 0 Vicryl for the fascia deyanira followed by 2-0 Vicryl subcutaneously and ethan for skin. Xeroform gauze and tape dressing were applied to the lateral thigh, and the patient was transferred to the recovery room in stable condition. There were no complications. The patient tolerated the procedure well. Job ID: [id number]
[2020-01-27] MEDS: Ondansetron PF 4 MG/2 ML Vial IVP PRN (17:20)
[2020-01-27 17:55] LABS: Bacteria/HPF None Seen HPF (None Seen); Squamous Epithelial None Seen HPF (0-3); WBC/HPF 0-3 HPF (0-3)
--- NOTE | 2020-01-27 18:55 | PRG ---
DATE OF SERVICE: 01/27/2020 SUBJECTIVE: The patient was seen this morning during rounds. She was lying in bed, resting comfortably. She was easily arousable. She reported her pain was controlled, and she tolerated her diet, though she could not remember what she ate, had a bowel movement yesterday. The patient continues to have intermittent difficulty with voiding, although she has a bowel movement. We are sending another UA. OBJECTIVE: VITAL SIGNS: Temperature 98.4, pulse 75, respirations 16, oxygen saturation 93% on room air, and blood pressure 127/73. GENERAL: Well-appearing elderly female, lying in bed with no signs of acute distress. PULMONARY: Equal chest rise and fall. No signs of acute respiratory distress. ABDOMEN: Soft, nontender, nondistended. EXTREMITIES: 2+ pulse in all extremities. Gross motor and sensation intact. No significant swelling noted. NEURO: GCS is 14-1 for confusion. LABORATORY FINDINGS: White count 11.4, hemoglobin 9.9, hematocrit 28.6, and platelets 227. Sodium 126, potassium 3.4, chloride 95, bicarb 25, BUN 15, creatinine 0.67, phosphorus 2.5, and magnesium 1.7. DIAGNOSTIC FINDINGS: There are no new diagnostic findings to report. ASSESSMENT: 1. Status post mechanical fall from standing. 2. Left intertrochanteric femur fracture, status post repair. 3. Urinary retention. 4. History of dementia, hypertension, CAD, stents, hyperlipidemia, and syndrome of inappropriate antidiuretic hormone secretion. PLAN: Continue current diet and pain regimen. Continue physical and occupational therapy. 1 L free water restriction for slightly worsening chronic hyponatremia secondary to SIADH. Send additional UA for urinary retention. The patient is pending discharge to either rehab or home with family. I will call family tomorrow to discuss options further. Repeat blood work in the morning. Job ID: [id number]
[2020-01-27] MEDS ORDERED: Promethazine HCl 12.5 MG SUPP PR PRN (21:52)
[2020-01-27] MEDS ORDERED: Sodium Chloride 0.9% 1,000 ML IV SCH (22:00)
--- NOTE | 2020-01-27 23:17 | PRG ---
DATE OF SERVICE: 01/27/2020 SUBJECTIVE: The patient was seen during evening rounds, resting comfortably in no acute distress. The patient has had urinary retention for the last couple of days and had to be I and O cathed twice. The patient's nurse reports the patient has been vomiting every time she drinks anything. The patient was given Zofran with no relief. The patient was also due to void and bladder scan showed greater than 700 on the scanner. OBJECTIVE: VITAL SIGNS: Stable, afebrile. GENERAL: Elderly female, currently resting comfortably in no acute distress. ASSESSMENT: 1. Status post mechanical fall from standing. 2. Left intertrochanteric femur fracture, status post repair. 3. Urinary retention. 4. Cachexia. 5. Chronic hyponatremia. 6. History of dementia, hypertension, coronary artery disease, stents, hyperlipidemia, syndrome of inappropriate anti-diuretic hormone secretion. PLAN: Continue current diet and pain regimen. We will place a Banks catheter as the patient continues to have urinary retention. Continue and increase physical and occupational therapy. Continue 1 L free water restriction for worsening chronic hyponatremia. We will add Phenergan suppository as the patient has been vomiting and not able to keep anything down. We will also start some maintenance IV fluids normal saline 75 mL an hour for one bag. We will repeat labs in the morning. Job ID: [id number]
[2020-01-28 05:30] LABS: #Lymphocytes 0.9 thou/uL (1.20-3.40); #Monocytes 1.3 thou/uL (0.11-0.59); %Eosinophils 0.1 % (0.0-10.0); %Lymphocytes 5.2 % (21.0-51.0); %Monocytes 7.9 % (0.0-10.0); %Neutrophils 86.7 % (42.0-75.0); Hemoglobin 10.8 g/dL (12.0-16.0); Mean Corpuscular Hemoglobin 32.7 pg (27.0-31.0); Mean Corpuscular Volume 93.5 fL (78.0-98.0); Mean Platelet Volume 7.4 fL (7.4-10.4); Platelet Count 222 thou/uL (130-400); RBC Distribution Width 12.4 % (11.5-14.5); White Blood Cell (WBC) Count 16.1 thou/uL (4.8-10.8)
[2020-01-28 05:54] LABS: Anion Gap 13 mmol/L (10-20); BUN (Urea Nitrogen) 15 mg/dL (9.8-20.1); Calc. Creatinine Clearance 47 mL/min (70-130); Carbon Dioxide 22 mmol/L (23-31); Chloride 97 mmol/L (98-107); Estimated GFR-MDRD Greater than 90; Glucose 121 mg/dL (83-110); Magnesium 2.1 mg/dL (1.6-2.6); Phosphorus 2.7 mg/dL (2.3-4.7); Potassium 3.4 mmol/L (3.5-5.1); Sodium 129 mmol/L (136-145)
[2020-01-28] MEDS: Ibuprofen 200 MG TAB PO SCH ×2 (05:58→15:07)
[2020-01-28] MEDS: Acetaminophen 500 MG TAB PO SCH ×3 (05:58→18:26)
[2020-01-28] MEDS ORDERED: Potassium Phosphate 30 MMOL in Sodium Chloride 0.9% 250 ML 250 ML IVPB SCH (08:15)
[2020-01-28] MEDS: Amlodipine 5 MG TAB PO SCH (09:26)
[2020-01-28] MEDS: Nebivolol HCl 5 MG TAB PO SCH (09:26)
[2020-01-28] MEDS: Aspirin 81 mg Enteric Coated Tablet PO SCH (09:26)
[2020-01-28] MEDS: Lisinopril 20 MG TAB PO SCH (09:26)
[2020-01-28] MEDS: Ondansetron PF 4 MG/2 ML Vial IVP PRN (15:05)
[2020-01-29 00:01] VITALS: BP 147/73; TEMP 97.6
--- NOTE | 2020-01-30 03:21 | DIS ---
DATE OF ADMISSION: 01/24/2020 DATE OF DISCHARGE: 01/28/2020 ADMISSION DIAGNOSES: Ground level fall, left intertrochanteric femur fracture, chronic hyponatremia and cachexia. DISCHARGE DIAGNOSES: Ground level fall, left intertrochanteric femur fracture, chronic hyponatremia and cachexia, urinary retention. CONSULTING PHYSICIAN: Dr. Boston of Orthopedic Surgery. HOSPITAL COURSE: The patient is an 89-year-old female, presented to the emergency department via EMS after a ground level fall. The patient was originally able to ambulate, but not able to after pain. She has a history of dementia and lives at home with her , who was wheelchair bound. She was found to have a left intertrochanteric femur fracture and was taken to the OR the next day with Dr. Boston of Orthopedic Surgery to have a left hip screw fixation. Postoperatively, she worked with Physical and Occupational Therapy. The patient had some postoperative urinary retention after several attempts with I and O cathing and sitting up at the bedside commode, the patient was not able to void. UA was sent twice without any infection. Ultimately, a Banks catheter was placed before discharge and she was discharged to acute rehab facility with that catheter. PROCEDURES: Left hip screw fixation. DISCHARGE DISPOSITION: Acute rehab. DISCHARGE CONDITION: Satisfactory. PHYSICAL EXAMINATION: VITAL SIGNS: Temperature 97.6, pulse 90, respirations 16, oxygen saturation 95% on room air, and blood pressure 147/73. GENERAL: Well-appearing elderly female, sitting up in bed with no signs of acute distress. PULMONARY: Equal chest rise and fall. No signs of acute respiratory distress. CARDIAC: Regular rate and rhythm. NEUROLOGIC: GCS is 14, -1 for confusion. This is her baseline. DISCHARGE INSTRUCTIONS: The patient was discharged to acute rehab facility [facility]. Activity as tolerated. Weightbearing as tolerated in all extremities. Regular diet with Ensure t.i.d. She will receive physical and occupational therapy. She has an incentive spirometry, walker and a Banks catheter. DISCHARGE MEDICATIONS: Include: 1. Tylenol. 2. Amlodipine. 3. Aspirin. 4. Ibuprofen. 5. Lisinopril. 6. Bystolic. 7. MiraLAX. 8. Phenergan. 9. Senokot S. 10. Tramadol. FOLLOWUP APPOINTMENTS: The patient is to follow up with Dr. Boston in Orthopedic Surgery. No followup needed in Trauma Clinic. This is a summary of the patient's hospitalization. For full details, please see her medical record in its entirety. The patient was seen and evaluated by myself on the day of discharge. Job ID: [id number]
== END 2020-01-28 20:55 | DRG 481 ==
LOC: ERS 14:45 → SURG A 16:48
PROVIDERS: ADMIT Surgery; ATTEND Surgery
PROC: 0QH704Z Insertion of Internal Fixation Device into Left Upper Femur, Open Approach (ICD-10-PCS; principal; 2020-01-25)
PROC: 0T9B70Z Drainage of Bladder with Drainage Device, Via Natural or Artificial Opening (ICD-10-PCS; 2020-01-28)
DX: S72.142A Displaced intertrochanteric fracture of left femur, initial encounter for closed fracture (principal); E87.1 Hypo-osmolality and hyponatremia; R64 Cachexia; Z68.1 Body mass index [BMI] 19.9 or less, adult; Z20.828 Contact with and (suspected) exposure to other viral communicable diseases; I10 Essential (primary) hypertension; I25.10 Atherosclerotic heart disease of native coronary artery without angina pectoris; E78.5 Hyperlipidemia, unspecified; F03.90 Unspecified dementia, unspecified severity, without behavioral disturbance, psychotic disturbance, mood disturbance, and anxiety; W18.30XA Fall on same level, unspecified, initial encounter; R33.9 Retention of urine, unspecified; Y92.009 Unspecified place in unspecified non-institutional (private) residence as the place of occurrence of the external cause; Z95.5 Presence of coronary angioplasty implant and graft; Z88.8 Allergy status to other drugs, medicaments and biological substances; Z91.013 Allergy to seafood; Z91.041 Radiographic dye allergy status; Z99.3 Dependence on wheelchair
CPT/HCPCS: 36415; 51702; 70450; 71045; 72125; 76000; 80048; 80053; 81003; 81015; 82550; 83605; 83735; 84100; 84484; 85025; 85610; 85730; 87086; 87635; 93005; C1713; G0390; J0690; J1100; J2270; J2405; J2704; J3010; J3475; J7050; S0028; U0003

== ENCOUNTER 2020-02-06 14:19 | Inpatient (IN) | payer MEDICARE, BC, OTHER ==
[2020-02-06 14:44] LABS: #Basophils 0.2 thou/uL (0.0-0.2); #Eosinphils 0.1 thou/uL (0.0-0.7); #Lymphocytes 1.4 thou/uL (1.20-3.40); #Monocytes 1.2 thou/uL (0.11-0.59); #Neutrophils 11.7 thou/uL (1.40-6.50); %Basophils 1.1 % (0.0-1.0); %Eosinophils 0.6 % (0.0-10.0); %Lymphocytes 9.9 % (21.0-51.0); %Monocytes 8.3 % (0.0-10.0); %Neutrophils 80.1 % (42.0-75.0); Hemoglobin 5.7 g/dL (12.0-16.0); Mean Corpuscular HGB CONC 33.3 g/dL (32.0-36.0); Mean Corpuscular Hemoglobin 31.8 pg (27.0-31.0); Mean Corpuscular Volume 95.4 fL (78.0-98.0); Mean Platelet Volume 6.1 fL (7.4-10.4); Platelet Count 494 thou/uL (130-400); RBC Distribution Width 14.7 % (11.5-14.5); Red Blood Cell (RBC) Count 1.78 mill/uL (4.20-5.40); White Blood Cell (WBC) Count 14.5 thou/uL (4.8-10.8)
[2020-02-06 15:00] LABS: ALT (SGPT) 7 U/L (8-55); AST (SGOT) 12 U/L (5-34); Albumin 2.5 g/dL (3.4-4.8); Alkaline Phosphatase 57 U/L (40-110); Anion Gap 7 mmol/L (10-20); BUN (Urea Nitrogen) 45 mg/dL (9.8-20.1); Bilirubin, Total 0.6 mg/dL (0.2-1.2); Calc. Creatinine Clearance 0 mL/min (70-130); Calcium 7.4 mg/dL (7.8-10.44); Carbon Dioxide 29 mmol/L (23-31); Chloride 103 mmol/L (98-107); Estimated GFR-MDRD 86; Globulin 1.8 g/dL (2.4-3.5); Glucose 128 mg/dL (83-110); Potassium 3.3 mmol/L (3.5-5.1); Protein, Total 4.3 g/dL (6.0-8.3); Sodium 136 mmol/L (136-145)
[2020-02-06 15:33] LABS: Bacteria/HPF 4+ HPF (None Seen); Bilirubin Negative (Negative); Blood, Urine 2+ (Negative); Clarity Extra Turbid (Clear); Glucose, Urine (Dipstick) Normal (Negative); Ketone, Urine Negative (Negative); Leukocyte 500 Leu/uL (Negative); Nitrite Negative (Negative); Protein, Urine (Dipstick) 70 mg/dL (Neg-Trace); Squamous Epithelial None Seen HPF (0-3); WBC/HPF Greater than 50 HPF (0-3)
[2020-02-06 15:52] LABS: INR-International Normal Ratio 1.1; PTT 29.5 sec (22.9-36.1); Prothrombin Time 14.7 sec (12.0-14.7)
[2020-02-06] MEDS ORDERED: Potassium Chloride 20 MEQ TAB ONE (16:13)
[2020-02-06] MEDS ORDERED: cefTRIAXone\\ROCEPHIN 1 GM VIAL ONE (16:13)
[2020-02-06] MEDS ORDERED: Pantoprazole 40 MG VIAL ONE (16:38)
[2020-02-06] MEDS ORDERED: Pantoprazole 80 MG in Sodium Chloride 0.9% 100 ML IVPB SCH (18:15)
--- NOTE | 2020-02-06 19:08 | HP ---
CHIEF COMPLAINT: Anemia. HISTORY OF PRESENT ILLNESS: This is an 89-year-old female sent here from [facility] with the concern of anemia that has been progressive over the week. The patient was sent to the rehab facility on January 27 after a fall for which she was hospitalized in this facility and underwent operative intervention for a left intertrochanteric femur fracture. The Rehab center has been monitoring her anemia and it has progressively declined. Today, it was 6.6, and she was sent to this facility. The patient only reports that she is not feeling well. She cannot describe anything further. She has underlying dementia, as well as hypertension, GERD, dyslipidemia, and coronary artery disease. In the emergency room, her hemoglobin was 5.7, one week ago at discharge, it was 10.8. Here, she has had a large black bowel movement. She is started on 1 unit of blood, received 40 mg of IV Protonix, 500 mL of saline, 40 mEq of potassium, 1 g of Rocephin, and hospitalist called for admission. PAST MEDICAL HISTORY: 1. Hypertension. 2. Coronary artery disease with history of stent. 3. Dyslipidemia. 4. Recent left intertrochanteric femur fracture and operative repair. 5. Dementia. 6. History of chronic hyponatremia. PAST SURGICAL HISTORY: Left intertrochanteric femur fracture repair, left hip. SOCIAL HISTORY: The patient reports that she lives with her . I am unable to assess. She does not appear to understand code status or surrogate decision maker. REVIEW OF SYSTEMS: Not obtainable from the patient. She simply states that she does not feel well. MEDICATIONS: From her discharge here on January 27: 1. Aspirin 81 mg daily. 2. MiraLAX 17 g daily as needed. 3. Ibuprofen 400 mg every 8 hours. 4. Promethazine 12.5 mg rectal every 4 hours as needed. 5. Senokot-S two tablets twice daily as needed. 6. Tylenol 1000 mg every 6 hours. 7. Tramadol 50 mg every 6 hours as needed. 8. Amlodipine 5 mg daily. 9. Lisinopril 20 mg daily. 10. Bystolic 10 mg daily. ALLERGIES: 1. BARBITURATES. 2. FISH CONTAINING PRODUCTS. 3. PHENOBARBITAL. PHYSICAL EXAMINATION: VITAL SIGNS: Blood pressure 112/47, pulse 92, respirations 16, temperature 97.8, saturations 98% on room air. GENERAL: She is awake. She is alert and oriented to person, but not place, time, or situation. She is not in apparent distress. HEENT: Her pupils are equal and round. No scleral icterus. Oral mucosa is pink and dry. NECK: Supple, nontender. LYMPHATICS: No palpable cervical or supraclavicular lymphadenopathy. LUNGS: Clear to auscultation bilateral. No audible wheezing, rhonchi, or rales. HEART: Normal S1 and S2. Regular rate and rhythm. No significant murmur. ABDOMEN: Soft with present bowel sounds. Nontender, nondistended. EXTREMITIES: There is no clubbing, cyanosis, or edema. SKIN: Pale throughout. VASCULAR: 2+ dorsalis pedis pulses. NEUROLOGIC: No focal deficits. PSYCHIATRIC: Appears euthymic. Alert and oriented x1. LABORATORY DATA: Reviewed. CBC; WBC 14.5, hemoglobin 5.7, hematocrit 17.0, platelets 494. INR 1.1. Chemistry; 136, 3.3, 103, 29, 45, 0.65, 128. Lactic acid 2.5. Calcium 7.4, T bilirubin 0.6, AST 12, ALT 7, alkaline phosphatase 57. Total protein 4.3, albumin 2.5. Urinalysis; present protein, 2+ blood, leukocyte esterase 500, 11 to 20 red blood cells, greater than 50 white blood cells. ASSESSMENT: 1. Gastrointestinal bleed consistent with an upper gastrointestinal bleed in a patient who is on low-dose aspirin. 2. Severe anemia secondary to gastrointestinal bleed. 3. Urinary tract infection. Given the leukocytosis, abnormal urinalysis. 4. Hypoproteinemia, hypoalbuminemia. 5. Hypokalemia, mild. 6. Recent hip fracture with repair. 7. Hypertension. 8. History of chronic hyponatremia. PLAN: 1. Admission to the hospital. 2. GI consultation with Dr. Zaidi. 3. Start a Protonix IV drip, continue blood transfusion, recheck the next hemoglobin after the second unit. I called the blood bank and they will have 2 units on reserve for the patient if needed. 4. Holding all of her home medications for now, monitoring her blood pressure. Reintroduce as she can tolerate. 5. Monitor her electrolytes and renal function. 6. Dietitian consult for when she is able to eat. 7. Continuing the Rocephin for the UTI and monitor the urine culture results. 8. Monitor on telemetry. 9. DVT prophylaxis with pneumatic compression devices. 10. GI prophylaxis, she will be on a Protonix drip. 11. Code status is full. Surrogate decision maker unknown. We will need to connect with the patient's family. 12. The patient is at high risk given age, comorbidities, and current presentation. 13. Reviewed the plan of care with the patient. No questions or further needs at the end of evaluation. Job ID: [id number] [facility] CENTERSimran
[2020-02-06] MEDS ORDERED: Ondansetron PF 4 MG/2 ML Vial IVP PRN (22:45)
[2020-02-06] MEDS ORDERED: Sodium Chloride 0.9% 1,000 ML IV SCH (22:45)
[2020-02-06] MEDS ORDERED: Ondansetron ODT 4 MG TAB SL PRN (22:45)
[2020-02-06 23:34] LABS: Lactic Acid 1.4 mmol/L (0.5-2.2)
--- NOTE | 2020-02-06 23:37 | CON ---
DATE OF CONSULTATION: 02/06/2020 CHIEF COMPLAINT: Black stools and anemia. HISTORY OF PRESENT ILLNESS: Ms. Dolan is an 89-year-old woman, who was sent to the emergency room from [facility] due to progressive anemia. A week and a half ago, she had undergone surgery for a fracture of her femur. Today, she has no acute complaints. She generally does not feel well, but denies nausea or vomiting. She has not had diarrhea or constipation or abdominal pain. She passed a large black melenic bowel movement in the emergency room. She was given blood transfusion and proton pump inhibitor. PAST MEDICAL HISTORY: Dementia, hypertension, coronary artery disease, hyperlipidemia, and hyponatremia. PAST SURGICAL HISTORY: Recent intertrochanteric femur fracture repair and coronary stent. FAMILY HISTORY: Noncontributory. SOCIAL HISTORY: No alcohol, tobacco, or drugs. ALLERGIES: BARBITURATES, PHENOBARBITAL, IODINE, AND SHELLFISH. MEDICATIONS: Current inpatient medications include; 1. Pantoprazole drip. 2. Ceftriaxone. Prior to admission, she had been on; 1. Tramadol. 2. Bystolic. 3. MiraLAX. 4. Lisinopril. 5. Aspirin 81 mg twice daily. 6. She has ibuprofen 400 mg q.8 hours listed as a scheduled medication. 7. Amlodipine. 8. Acetaminophen. REVIEW OF SYSTEMS: Negative x10 systems reviewed except as stated in history of present illness; however, this is limited due to her decreased mental status. PHYSICAL EXAMINATION: VITAL SIGNS: Her blood pressure is in the 140s/60s range, pulse is in the 80s to 90s, and temperature 97.8. GENERAL: She is oriented to her name, but not the place or the year. HEENT: Her eyes have no scleral icterus. Oropharynx is clear without lesions. No cervical or supraclavicular lymphadenopathy. LUNGS: Clear to auscultation bilaterally. HEART: Regular rate and rhythm without murmur. ABDOMEN: Soft, nontender, and nondistended. Bowel sounds are present. EXTREMITIES: No lower extremity edema. NEUROLOGIC: Cranial nerves grossly intact. LABORATORY DATA: Her hemoglobin is 5.7. Back on 01/24/2020, her hemoglobin was 14 and has dropped down to 10.8 by 01/27 and 8.6 on 02/02/2020. Platelets 494 and white blood cell count 14.5. INR 1.1. Creatinine 0.65. Iron 54, TIBC 209, ferritin 119, and albumin 2.5. COVID negative. IMPRESSION: 1. Anemia of acute blood loss. She is receiving a couple of units transfusion in the ER. 2. Gastrointestinal bleed presenting with melena. She is receiving pantoprazole IV. 3. Dementia and advanced age. She has been at [facility] status post operative repair of an intertrochanteric femur fracture. RECOMMENDATIONS: 1. Transfusion. 2. Proton pump inhibitor IV. 3. EGD tomorrow. 4. Dr. Argueta will take over care tomorrow. Job ID: [id number]
[2020-02-07 01:02] LABS: Hemoglobin 10.8 g/dL (12.0-16.0)
[2020-02-07 03:13] VITALS: BMI 15.5
[2020-02-07 04:01] LABS: #Basophils 0.1 thou/uL (0.0-0.2); #Eosinphils 0.2 thou/uL (0.0-0.7); #Lymphocytes 1.8 thou/uL (1.20-3.40); #Monocytes 1.7 thou/uL (0.11-0.59); #Neutrophils 15.7 thou/uL (1.40-6.50); %Basophils 0.4 % (0.0-1.0); %Eosinophils 0.9 % (0.0-10.0); %Monocytes 8.8 % (0.0-10.0); %Neutrophils 80.9 % (42.0-75.0); Hemoglobin 10.3 g/dL (12.0-16.0); Mean Corpuscular HGB CONC 35.1 g/dL (32.0-36.0); Mean Corpuscular Hemoglobin 31.6 pg (27.0-31.0); Mean Platelet Volume 6.3 fL (7.4-10.4); Platelet Count 360 thou/uL (130-400); RBC Distribution Width 14.4 % (11.5-14.5); Red Blood Cell (RBC) Count 3.26 mill/uL (4.20-5.40); White Blood Cell (WBC) Count 19.4 thou/uL (4.8-10.8)
[2020-02-07 04:21] LABS: Anion Gap 9 mmol/L (10-20); BUN (Urea Nitrogen) 45 mg/dL (9.8-20.1); Calc. Creatinine Clearance 52 mL/min (70-130); Calcium 7.8 mg/dL (7.8-10.44); Carbon Dioxide 26 mmol/L (23-31); Chloride 108 mmol/L (98-107); Estimated GFR-MDRD Greater than 90; Glucose 109 mg/dL (83-110); Potassium 3.7 mmol/L (3.5-5.1); Sodium 139 mmol/L (136-145)
--- NOTE | 2020-02-07 07:44 | PDOC.HOSPP ---
- Subjective Encounter Date: 02/07/20 Encounter Time: 07:42 Subjective: easily aroused, no distresss - Objective Vital Signs & Weight: Vital Signs (12 hours) Temp Pulse Resp BP Pulse Ox 02/07/20 03:49 97.9 F 02/07/20 03:00 81 20 168/67 H 98 02/07/20 00:00 97.7 F 02/06/20 22:45 98 02/06/20 22:20 98.0 F 88 20 151/87 H 97 Weight Weight 99 lb 8 oz Most Recent Monitor Data Heart Rate from ECG 80 NIBP 151/61 NIBP BP-Mean 91 Respiration from ECG 21 SpO2 100 I&O: 02/06/20 02/07/20 02/08/20 06:59 06:59 06:59 Intake Total 0 Output Total 600 Balance -600 Result Diagrams: 02/07/20 03:40 02/07/20 03:40 Hospitalist ROS - Medication Medications: Active Medications Generic Name Dose Route Start Last Admin Trade Name Freq PRN Reason Stop Dose Admin Pantoprazole Sodium 80 mg/ 100 mls @ 10 mls/hr 02/06/20 18:15 02/07/20 04:23 Sodium Chloride IVPB 100 mls INF JARET Administration - Exam Neck: no JVD Heart: RRR, no murmur Respiratory: CTAB Gastrointestinal: soft, normal bowel sounds Extremities: no edema Hosp A/P (1) GI bleed due to NSAIDs Code(s): K92.2 - GASTROINTESTINAL HEMORRHAGE, UNSPECIFIED; T39.395A - ADVERSE EFFECT OF NONSTEROIDAL ANTI-INFLAMMATORY DRUGS, INIT Status: Acute (2) Anemia due to blood loss, chronic Code(s): D50.0 - IRON DEFICIENCY ANEMIA SECONDARY TO BLOOD LOSS (CHRONIC) Status: Acute (3) CAD (coronary artery disease) Code(s): I25.10 - ATHSCL HEART DISEASE OF [place] CORONARY ARTERY W/O ANG PCTRS Status: Chronic Qualifiers: Coronary Disease-Associated Artery/Lesion type: [place] artery [place] vs. transplanted heart: [place] heart Associated angina: without angina Qualified Code(s): I25.10 - Atherosclerotic heart disease of [place] coronary artery without angina pectoris (4) Cognitive impairment Code(s): R41.89 - OTH SYMPTOMS AND SIGNS W COGNITIVE FUNCTIONS AND AWARENESS Status: Chronic (5) Dyslipidemia Code(s): E78.5 - HYPERLIPIDEMIA, UNSPECIFIED Status: Chronic (6) HTN (hypertension) Code(s): I10 - ESSENTIAL (PRIMARY) HYPERTENSION Status: Chronic Qualifiers: Hypertension type: essential hypertension - Plan iv orotonix serial lab, transfuse for Hg< 7 EGD today
[2020-02-07 07:47] LABS: SARS-CoV-2 NAA Rapid Test Not Detected (NotDetected)
[2020-02-07 09:21] LABS: Hemoglobin 10.7 g/dL (12.0-16.0); Platelet Count 400 thou/uL (130-400)
--- NOTE | 2020-02-07 13:08 | PRG ---
DATE OF SERVICE: 02/07/2020 SUBJECTIVE: After the patient's initial melenic stool on presentation, there has been no further melena reported, certainly none this morning per nursing staff. The patient denies any abdominal pain. She is pleasantly confused after 2 units RBC transfusion last night hemoglobin came up from 5.7, all the way to 10.8, and is stable this morning at 10.7. She has remained hemodynamically stable. Attempts to contact any family members and surrogate decision makers have been unsuccessful both by nursing staff, OR staff, and myself. We have been unable to get informed consent for any procedure. OBJECTIVE: VITAL SIGNS: Temperature is 98.6, heart rate is 88, blood pressure 151/77, 98% oxygen saturation on room air. GENERAL: No acute distress. Pleasantly confused. Able to answer questions about current symptoms. HEART: Regular rate and rhythm. LUNGS: Clear to auscultation bilaterally. ABDOMEN: Bowel sounds present. Soft, flat, nontender to palpation throughout extremities. No peripheral edema. LABORATORY STUDIES: Hemoglobin stable this morning at 10.7, WBC is 19.4, platelets 400. INR 1.1. Sodium 139, potassium 3.7, BUN 45, creatinine 0.53, glucose 109. Lactic acid down to 1.4, calcium 7.8. COVID PCR is negative. Urinalysis shows greater than 50 wbcs, positive leukocyte esterase. ASSESSMENT/PLAN: 1. Melena, witnessed yesterday, no further stool output today. 2. Acute blood loss anemia, with hemoglobin decline of about 5 points over the past week, responded very well to transfusion, stable today. 3. Recent hip fracture. The patient remains very clinically stable with excellent response to 2 units RBC transfusion, no further overt bleeding noted today. Her presentation does seem consistent with subacute upper gastrointestinal bleeding. Continue with the pantoprazole intravenous drip for now. We had planned on diagnostic esophagogastroduodenoscopy today, but unfortunately we were unable to locate any family members from her to obtain informed consent for the procedure. Given her clinical stability today, we are going to hold off on any endoscopy. I have asked nursing staff to look into this and keep trying to contact family. Case management may need to become involved. If the family can be contacted and informed consent obtained for the procedure, we will plan for esophagogastroduodenoscopy tomorrow. We will go ahead and give the patient clear liquids today, but make her n.p.o. after midnight again. Please call anytime with questions or concerns. Job ID: [id number]
--- NOTE | 2020-02-07 15:09 | PDOC.EVN ---
Event Note - Event Note Event Note: vital signs, Hg stable. will move to floor
[2020-02-07] MEDS: cefTRIAXone\\ROCEPHIN 1 GM in Sodium Chloride 0.9% 100 ML IVPB SCH ×2 (15:53→16:42)
[2020-02-07 21:20] LABS: Hemoglobin 10.4 g/dL (12.0-16.0); Platelet Count 382 thou/uL (130-400)
[2020-02-07] MEDS: Pantoprazole 40 MG VIAL IVP SCH (21:21)
[2020-02-08] MEDS: Pantoprazole 40 MG VIAL IVP SCH ×2 (08:34→20:47)
[2020-02-08] MEDS ORDERED: EPINEPHrine 1 MG/10 ML Abboject SYRINGE ONE (09:49)
[2020-02-08] MEDS ORDERED: PROPOFOL 200 MG/20 ML VIAL ONE (09:49)
[2020-02-08] MEDS ORDERED: Lidocaine 1% PF 5 ML VIAL ONE (09:49)
[2020-02-08] MEDS ORDERED: PHENYLEPHRINE-NS 100 MCG/ML 10 ML SYRINGE ONE (09:49)
[2020-02-08] MEDS ORDERED: Ondansetron HCl/PF 4 MG/2 ML Vial IVP PRN (10:42)
[2020-02-08] MEDS ORDERED: Promethazine HCl 25 MG/ML VIAL IM PRN (10:42)
[2020-02-08] MEDS ORDERED: Promethazine HCl 25 MG/ML VIAL SLOW IVP PRN (10:42)
--- NOTE | 2020-02-08 11:02 | OP ---
DATE OF PROCEDURE: 02/08/2020 PROCEDURES PERFORMED: Esophagogastroduodenoscopy to control hemorrhage and biopsy. PREMEDICATION: Given by Anesthesiology Department. PREPROCEDURE DIAGNOSES: 1. History of melena. 2. Severe anemia from blood loss. POSTPROCEDURE DIAGNOSES: 1. A 2 x 1 shallow duodenal ulcer from posterior bulb extending to the first portion with area of oozing and one visible vessel. 2. Normal stomach. 3. Normal esophagus. DESCRIPTION OF PROCEDURE: Written consents were obtained prior to procedure. After adequate sedation, the forward-viewing endoscope was advanced down the stomach under direct vision. The esophagus appeared normal. GE junction was located at 37 cm from incisors. Old liquid bloody material was found in the stomach. The stomach was thoroughly irrigated and suctioned. The antrum, body, fundus, and cardia all appeared normal. Pylorus was patent. The endoscope was advanced into duodenum. A blood clot was noted in the bulb. A 1 x 2 shallow ulcer was noted extending from the distal bulb around the sweep. There was one sentinel focal area of exposed vessel was seen. This area was injected with 2 mL of 1:10,000 epinephrine solution and was cauterized with a 7-[place] BICAP probe. Around the turn, area of mucosal oozing was seen. This area was cauterized with a 7-[place] BICAP probe. There was good hemostasis. The third and fourth portion of duodenum appeared normal. A clip was attempted to place across the exposed vessel area, but was unsuccessful in opposing the edges. The endoscope was retracted back to the stomach. Biopsies were obtained for H. pylori. The stomach was then decompressed, the instrument was then fully removed. The patient tolerated the procedure well. ASSESSMENT: 1. Bleeding duodenal ulcer, status post epinephrine injection and BICAP cauterization with good hemostasis. 2. Normal stomach and esophagus. 3. Likely nonsteroidal anti-inflammatory drug-induced ulcers. The patient was on ibuprofen 400 mg q.8 prior to admission. RECOMMENDATION: 1. Continue with pantoprazole 40 mg IV q.12. 2. Clear liquids diet today. 3. Continue to trend blood count. Job ID: [id number]
--- NOTE | 2020-02-08 13:43 | PDOC.HOSPP ---
- Subjective Encounter Date: 02/08/20 Encounter Time: 13:42 Subjective: alert, demented - Objective Vital Signs & Weight: Vital Signs (12 hours) Temp Pulse Resp BP BP Pulse Ox 02/08/20 11:32 97.8 F 88 15 159/68 H 93 L 02/08/20 10:55 97.1 F L 80 16 160/67 H 100 02/08/20 08:00 97.8 F 85 16 148/70 H 99 02/08/20 04:50 97.8 F 91 18 153/71 H 100 Weight Admit Weight 99 lb 8 oz Weight 99 lb 8 oz Most Recent Monitor Data Heart Rate from ECG 96 NIBP 152/75 NIBP BP-Mean 100 Respiration from ECG 21 SpO2 100 I&O: 02/07/20 02/08/20 02/09/20 06:59 06:59 06:59 Intake Total 450 600 Output Total 600 2450 Balance -150 -1850 Result Diagrams: 02/07/20 21:12 02/07/20 03:40 Hospitalist ROS - Medication Medications: Active Medications Generic Name Dose Route Start Last Admin Trade Name Freq PRN Reason Stop Dose Admin Ceftriaxone Sodium 1 gm/ 100 mls @ 200 mls/hr 02/07/20 16:00 02/07/20 16:42 Sodium Chloride IVPB 100 mls Q24HR JARET Administration Pantoprazole Sodium 40 mg 02/07/20 21:00 02/08/20 08:34 Pantoprazole 40 Mg Vial IVP 40 mg Q12HR JARET Administration Sodium Chloride 10 ml 02/07/20 09:00 02/08/20 08:35 Flush - Normal Saline 10 Ml Syringe IVF 10 ml Q12HR JARET Administration - Exam Neck: no JVD Heart: RRR, no murmur Respiratory: CTAB Gastrointestinal: soft, non-tender, normal bowel sounds Extremities: no edema Hosp A/P (1) Peptic ulcer disease with hemorrhage Code(s): K27.4 - CHRONIC OR UNSP PEPTIC ULCER, SITE UNSP, WITH HEMORRHAGE Status: Acute (2) GI bleed due to NSAIDs Code(s): K92.2 - GASTROINTESTINAL HEMORRHAGE, UNSPECIFIED; T39.395A - ADVERSE EFFECT OF NONSTEROIDAL ANTI-INFLAMMATORY DRUGS, INIT Status: Acute (3) Anemia due to blood loss, chronic Code(s): D50.0 - IRON DEFICIENCY ANEMIA SECONDARY TO BLOOD LOSS (CHRONIC) Status: Acute (4) CAD (coronary artery disease) Code(s): I25.10 - ATHSCL HEART DISEASE OF [place] CORONARY ARTERY W/O ANG PCTRS Status: Chronic Qualifiers: Coronary Disease-Associated Artery/Lesion type: [place] artery [place] vs. transplanted heart: [place] heart Associated angina: without angina Qualified Code(s): I25.10 - Atherosclerotic heart disease of [place] coronary artery without angina pectoris (5) Cognitive impairment Code(s): R41.89 - OT SYMPTOMS AND SIGNS W COGNITIVE FUNCTIONS AND AWARENESS Status: Chronic (6) Dyslipidemia Code(s): E78.5 - HYPERLIPIDEMIA, UNSPECIFIED Status: Chronic (7) HTN (hypertension) Code(s): I10 - ESSENTIAL (PRIMARY) HYPERTENSION Status: Chronic Qualifiers: Hypertension type: essential hypertension - Plan cont iv protoix x 48hrs H&H q AM clear liquidEGD revealed peptic ulcer, most likely due to NSAIDS
[2020-02-08 16:08] LABS: Hemoglobin 9.5 g/dL (12.0-16.0)
[2020-02-08] MEDS: cefTRIAXone\\ROCEPHIN 1 GM in Sodium Chloride 0.9% 100 ML IVPB SCH (17:47)
[2020-02-09 05:53] LABS: #Basophils 0.1 thou/uL (0.0-0.2); #Eosinphils 0.3 thou/uL (0.0-0.7); #Lymphocytes 0.9 thou/uL (1.20-3.40); #Monocytes 0.8 thou/uL (0.11-0.59); #Neutrophils 6.9 thou/uL (1.40-6.50); %Basophils 1.1 % (0.0-1.0); %Eosinophils 3.8 % (0.0-10.0); %Monocytes 9.2 % (0.0-10.0); %Neutrophils 75.9 % (42.0-75.0); Mean Corpuscular HGB CONC 33.9 g/dL (32.0-36.0); Mean Corpuscular Hemoglobin 31.2 pg (27.0-31.0); Mean Corpuscular Volume 92.2 fL (78.0-98.0); Mean Platelet Volume 6.1 fL (7.4-10.4); Platelet Count 375 thou/uL (130-400); RBC Distribution Width 14.4 % (11.5-14.5); Red Blood Cell (RBC) Count 2.88 mill/uL (4.20-5.40); White Blood Cell (WBC) Count 9.1 thou/uL (4.8-10.8)
[2020-02-09 06:09] LABS: Anion Gap 9 mmol/L (10-20); BUN (Urea Nitrogen) 18 mg/dL (9.8-20.1); Calc. Creatinine Clearance 57 mL/min (70-130); Calcium 7.7 mg/dL (7.8-10.44); Carbon Dioxide 25 mmol/L (23-31); Chloride 105 mmol/L (98-107); Estimated GFR-MDRD Greater than 90; Glucose 83 mg/dL (83-110); Sodium 136 mmol/L (136-145)
[2020-02-09 06:13] LABS: Potassium 2.8 mmol/L (3.5-5.1)
[2020-02-09] MEDS ORDERED: Potassium Chloride 20 MEQ in Premix Bag 1 BAG IVPB SCH (06:45)
[2020-02-09] MEDS ORDERED: Potassium Chloride 20 MEQ TAB PO SCH (06:45)
[2020-02-09] MEDS ORDERED: traMADol HCl 50 MG TAB PO PRN (08:25)
[2020-02-09] MEDS ORDERED: Non-Formulary Item 1 EACH (Nebivolol Hcl [Bystolic] 10 MG Tab) PO SCH (09:00)
[2020-02-09] MEDS: Nebivolol HCl 5 MG TAB PO SCH (11:00)
[2020-02-09] MEDS: Amlodipine 5 MG TAB PO SCH (11:01)
[2020-02-09] MEDS: Pantoprazole 40 MG VIAL IVP SCH ×2 (11:03→20:22)
--- NOTE | 2020-02-09 13:01 | PQF ---
CLINICAL DOCUMENTATION CLARIFICATION FORM: Dear Dr. Milena Quintero Date: 02/08/2010 1428 Please exercise your independent, professional judgment in responding to the clarification form. Clinical indicators are provided on the bottom of this form for your review. Please check appropriate box(es): [ ] Protein Calorie Malnutrition: [ ] Mild [ ] Moderate [ ] Severe [ ] Other Malnutrition (please specify) [ ] Underweight without malnutrition [ ] Cachexia [ ] Other diagnosis [ x ] Unable to determine In addition, please specify: Present on Admission (POA): [ ] Yes [ ] No [ ] Unable to determine For continuity of documentation, please document condition throughout progress notes and discharge summary. Thank You. To be completed by CDI/Coding staff for physician review: CLINICAL INDICATORS - SIGNS / SYMPTOMS / LABS / RESULTS AND LOCATION IN MR RD assessment: BMI 15.5, severe muscle wasting and fat loss present, non- pitting edema present suggestive of severe malnutrition in the context of chronic illness. ( 02/06) RISK FACTORS / RESULTS AND LOCATION IN MR Recent operative intervention for left intertrochanteric femur fx, advanced age ( 89), Hx of dementia, Dx of gastrointestinal bleed ( H&P/ Inderjit) 02/05 TREATMENT / RESULTS AND LOCATION IN MR Dietary consult (02/06) Recommend Ensure Enlive Tid (RD) Moderate Malnutrition (in acute illness) Energy Intake: <75% of estimated energy requirement for > 7 days Weight Loss: 1-2%/1 week; 5%/ 1 month; 7.5%/3 months Other: mild body fat loss; mild muscle mass loss; mild fluid accumulation; Severe Malnutrition (in acute illness) Energy Intake: = 50% of estimated energy requirement for = 5 days Weight Loss: >2%/1 week; >5%/1 month; >7.5%/3 months Other: moderate body fat loss; moderate muscle mass loss; moderate- severe fluid accumulation; measurably reduced broach trouble shooter strength Moderate Malnutrition (in chronic illness) Energy Intake: <75% of estimated energy requirement for =1 month Weight Loss: 5%/1 month; 7.5%/3 months; 10%/6 months; 20%/1 year Other: mild body fat loss; mild muscle mass loss; mild fluid accumulation Severe Malnutrition (in chronic illness) Energy Intake: =75% of estimated energy requirement for =1 month Weight Loss: >5%/1 month; >7.5%/3 months; >10%/6 months; >20%/1 year Other: severe body fat loss; severe muscle mass loss; severe fluid accumulation; measurably reduced broach trouble shooter strength Thank you! CDS Signature: Janeth Orlando RN Phone #: [phone] Date: 02/09/2020 This is a permanent part of the Medical Record [facility]
--- NOTE | 2020-02-09 13:37 | PDOC.HOSPP ---
- Subjective Encounter Date: 02/09/20 Encounter Time: 13:35 Subjective: complains of RLQ pain. no nausea, vomiting, diarrhea - Objective Vital Signs & Weight: Vital Signs (12 hours) Temp Pulse Resp BP Pulse Ox 02/09/20 12:00 97.5 F L 86 16 149/67 H 100 02/09/20 07:55 97.3 F L 90 16 145/90 H 99 02/09/20 04:00 98.3 F 89 18 153/69 H 97 Weight Admit Weight 99 lb 8 oz Weight 99 lb 8 oz Most Recent Monitor Data Heart Rate from ECG 96 NIBP 152/75 NIBP BP-Mean 100 Respiration from ECG 21 SpO2 100 I&O: 02/08/20 02/09/20 02/10/20 06:59 06:59 06:59 Intake Total 600 Output Total 2450 Balance -1850 Result Diagrams: 02/09/20 05:33 02/09/20 05:33 Hospitalist ROS - Medication Medications: Active Medications Generic Name Dose Route Start Last Admin Trade Name Freq PRN Reason Stop Dose Admin Amlodipine Besylate 5 mg 02/09/20 09:00 02/09/20 11:01 Amlodipine 5 Mg Tab PO 5 mg DAILY JARET Administration Ceftriaxone Sodium 1 gm/ 100 mls @ 200 mls/hr 02/07/20 16:00 02/08/20 17:47 Sodium Chloride IVPB 100 mls Q24HR JARET Administration Nebivolol 10 mg 02/09/20 09:00 02/09/20 11:00 Nebivolol Hcl 5 Mg Tab PO 10 mg DAILY JARET Administration Pantoprazole Sodium 40 mg 02/07/20 21:00 02/09/20 11:03 Pantoprazole 40 Mg Vial IVP 40 mg Q12HR JARET Administration Sodium Chloride 10 ml 02/07/20 09:00 02/09/20 11:03 Flush - Normal Saline 10 Ml Syringe IVF Not Given Q12HR JARET Tramadol HCl 25 mg 02/09/20 08:25 02/09/20 11:01 Tramadol Hcl 50 Mg Tab PO 25 mg Q6H PRN Administration Pain - Exam General Appearance: awake alert Neck: no JVD Heart: RRR, no murmur Respiratory: CTAB Gastrointestinal: normal bowel sounds, tender to palpation, voluntary guarding Gastrointestinal - other findings: RLQ Extremities: no edema Hosp A/P (1) Peptic ulcer disease with hemorrhage Code(s): K27.4 - CHRONIC OR UNSP PEPTIC ULCER, SITE UNSP, WITH HEMORRHAGE Status: Acute (2) GI bleed due to NSAIDs Code(s): K92.2 - GASTROINTESTINAL HEMORRHAGE, UNSPECIFIED; T39.395A - ADVERSE EFFECT OF NONSTEROIDAL ANTI-INFLAMMATORY DRUGS, INIT Status: Acute (3) Anemia due to blood loss, chronic Code(s): D50.0 - IRON DEFICIENCY ANEMIA SECONDARY TO BLOOD LOSS (CHRONIC) Status: Acute (4) CAD (coronary artery disease) Code(s): I25.10 - ATHSCL HEART DISEASE OF [place] CORONARY ARTERY W/O ANG PCTRS Status: Chronic Qualifiers: Coronary Disease-Associated Artery/Lesion type: [place] artery [place] vs. t ransplanted heart: [place] heart Associated angina: without angina Qualified Code(s): I25.10 - Atherosclerotic heart disease of [place] coronary artery without angina pectoris (5) Cognitive impairment Code(s): R41.89 - OTH SYMPTOMS AND SIGNS W COGNITIVE FUNCTIONS AND AWARENESS S tatus: Chronic (6) Dyslipidemia Code(s): E78.5 - HYPERLIPIDEMIA, UNSPECIFIED Status: Chronic (7) HTN (hypertension) Code(s): I10 - ESSENTIAL (PRIMARY) HYPERTENSION Status: Chronic Qualifiers: Hypertension type: essential hypertension (8) Abdominal pain Code(s): R10.9 - UNSPECIFIED ABDOMINAL PAIN Status: Acute Qualifiers: Abdominal location: right lower quadrant Qualified Code(s): R10.31 - Right lower quadrant pain - Plan cont iv protoix x 48hrs H&H q AM clear liquid diet EGD revealed peptic ulcer, most likely due to NSAIDS obtain CT abd to evaluate RLQ pain/tenderness cbc
[2020-02-09] MEDS: cefTRIAXone\\ROCEPHIN 1 GM in Sodium Chloride 0.9% 100 ML IVPB SCH (16:38)
[2020-02-09] MEDS: predniSONE 50 MG TAB PO SCH (20:20)
--- NOTE | 2020-02-09 22:56 | PRG ---
DATE OF SERVICE: 02/09/2020 SUBJECTIVE: Ms. Dolan has no complaints. However, nursing reports that she has only taken small amounts of her clear liquid diet. OBJECTIVE: VITAL SIGNS: Temperature is 98.3, pulse 81, blood pressure 148/70. GENERAL: She is no acute distress. Awake and alert, but with dementia. LUNGS: Clear to auscultation bilaterally. HEART: Regular rate and rhythm without murmur. ABDOMEN: Tender to palpation diffusely and bowel sounds are present. No guarding. EXTREMITIES: No lower extremity edema. LABORATORY DATA: Hemoglobin is 9.0 today. Creatinine 0.79. IMPRESSION: 1. Large duodenal ulcer, presenting with gastrointestinal bleed. 2. Anemia of acute blood loss status post 2 units transfusion. 3. Abdominal tenderness, most likely secondary to the duodenal ulcer. Her white blood cell count has returned to normal. She remains afebrile. RECOMMENDATIONS: 1. Proton pump inhibitor twice daily. 2. NSAIDs have been discontinued. 3. We can try advancing to full liquids tomorrow. Job ID: [id number]
[2020-02-10] MEDS: predniSONE 50 MG TAB PO SCH ×2 (01:47→07:29)
[2020-02-10] MEDS: Nebivolol HCl 5 MG TAB PO SCH (07:28)
[2020-02-10] MEDS: Amlodipine 5 MG TAB PO SCH (07:28)
[2020-02-10] MEDS: Pantoprazole 40 MG VIAL IVP SCH ×2 (07:29→21:05)
[2020-02-10] MEDS ORDERED: diphenhydrAMINE 25 MG CAP PO SCH (08:00)
[2020-02-10 09:17] LABS: Phosphorus 3.1 mg/dL (2.3-4.7)
[2020-02-10 09:19] LABS: Anion Gap 12 mmol/L (10-20); BUN (Urea Nitrogen) 23 mg/dL (9.8-20.1); Calc. Creatinine Clearance 49 mL/min (70-130); Calcium 8.4 mg/dL (7.8-10.44); Carbon Dioxide 23 mmol/L (23-31); Chloride 104 mmol/L (98-107); Estimated GFR-MDRD Greater than 90; Glucose 139 mg/dL (83-110); Magnesium 1.9 mg/dL (1.6-2.6); Potassium 3.3 mmol/L (3.5-5.1); Sodium 136 mmol/L (136-145)
[2020-02-10 09:49] LABS: #Basophils 0.1 thou/uL (0.0-0.2); #Lymphocytes 0.3 thou/uL (1.20-3.40); #Monocytes 0.2 thou/uL (0.11-0.59); #Neutrophils 12.6 thou/uL (1.40-6.50); %Basophils 0.9 % (0.0-1.0); %Eosinophils 0.1 % (0.0-10.0); %Lymphocytes 2.5 % (21.0-51.0); %Monocytes 1.2 % (0.0-10.0); %Neutrophils 95.3 % (42.0-75.0); Hemoglobin 9.7 g/dL (12.0-16.0); Mean Corpuscular HGB CONC 32.9 g/dL (32.0-36.0); Mean Corpuscular Hemoglobin 31.8 pg (27.0-31.0); Mean Corpuscular Volume 96.5 fL (78.0-98.0); Mean Platelet Volume 6.6 fL (7.4-10.4); Platelet Count 380 thou/uL (130-400); RBC Distribution Width 15.1 % (11.5-14.5); Red Blood Cell (RBC) Count 3.04 mill/uL (4.20-5.40); White Blood Cell (WBC) Count 13.2 thou/uL (4.8-10.8)
--- NOTE | 2020-02-10 10:08 | CT ---
CT OF THE ABDOMEN AND PELVIS WITH IV CONTRAST INDICATION: Right lower quadrant abdominal pain COMPARISON: None FINDINGS: ABDOMEN: Lung bases: There are small bilateral pleural effusions and bibasilar atelectasis Liver: No focal lesion. Gallbladder: Gallbladder is mildly distended Pancreas: Normal. Adrenal glands: Normal. Spleen: Normal. Kidneys and ureters: Normal. No hydronephrosis. Vasculature: There are moderate vascular calcifications seen involving the visualized vasculature. Lymph nodes:No lymphadenopathy. Free fluid in abdomen:There is free air seen within the upper abdomen. There is a full-thickness perf orated ulcer involving the right anterior lateral wall of the duodenal bulb. There is a surgical clip within the second portion of the duodenum on image 27 of series 2. Small amount of free fluid is seen within the lower abdomen and pelvis. PELVIS: Small and large bowel: There is wall thickening involving the distal gastric antrum and proximal duod enum consistent with changes of a gastroduodenitis. There are scattered colonic diverticula without evidence of active diverticulitis. The small bowel is of normal caliber. Appendix:Normal Bladder: Banks catheter is seen within a decompressed bladder Rectal and perirectal soft tissues:Normal. Reproductive structures: Normal. Free fluid in pelvis: Mild free fluid in the pelvis Lymphadenopathy pelvis: No lymphadenopathy is evident. Osseous structures: There is postprocedural change of a hip screw and sideplate is placement traversi ng the comminuted left intertrochanteric hip fracture. There is healed fracture deformity involving the right pubic body. There is levoscoliosis of the lumbar spine with diffuse osteopenia. There is s cattered degenerative and osteoarthritic changes. Soft tissues:Normal. IMPRESSION: 1. Perforated duodenal ulcer with free air and free fluid within the abdomen and pelvis. Findings dis cussed with Dr. Victor at 10:00 AM on 02/10/2020. Surgical consultation is recommended. 2. Findings of gastroduodenitis. 3. Small bilateral pleural effusions with bibasilar atelectasis. 4. Recent postsurgical change of the left hip fracture repair.
[2020-02-10] MEDS ORDERED: Lidocaine 1% PF 5 ML VIAL ONE (10:45)
[2020-02-10] MEDS ORDERED: Rocuronium Bromide 10 MG/ML (10ML VIAL) ONE (10:45)
[2020-02-10] MEDS ORDERED: Succinylcholine Chloride 20 MG/ML 10 ml SYRINGE FS ONE (10:45)
[2020-02-10] MEDS ORDERED: Ondansetron PF 4 MG/2 ML Vial ONE (10:45)
[2020-02-10] MEDS ORDERED: Glycopyrrolate 0.2 MG/ML 5 ML SYRINGE ONE (10:45)
[2020-02-10] MEDS ORDERED: PROPOFOL 200 MG/20 ML VIAL ONE (10:45)
[2020-02-10] MEDS ORDERED: Phenylephrine 10 MG/ML VIAL ONE (11:41)
[2020-02-10] MEDS ORDERED: Fentanyl 100 MCG/2 ML VIAL ONE ×4 (11:41→15:14)
[2020-02-10] MEDS ORDERED: SUGAMMADEX SODIUM 200 MG/2 ML VIAL ONE (11:41)
--- NOTE | 2020-02-10 11:54 | PDOC.CONS ---
- Consultation Encounter Date: 02/10/20 Encounter Time: 11:45 Chief complaint-unobtainable History of present illness the patient is an 89-year-old female who is been in the hospital for several days. [facility]. More recently, she was here for a hip fracture. She went to rehabilitation. Since that time she has been on NSAIDs. She has progressively continued to decline per records. She was found to be anemic upon arrival. At least today, I am largely unable to communicate with her. It appears as if she has had a prior stroke. Even when I cannot comprehend what she is trying to say, it does not make sense. She denies any abdominal pain. During this hospitalization, she has undergone an EGD. I spoke with Dr. Alatorre and Dr. Zaidi. There appeared to be a shallow ulcer with a area that appeared to have the stigmata of a recent bleed. This underwent BiCAP and attempted clipping. Also had epinephrine injection. No evidence of bleeding since then. Overnight, evidently, she was complaining of abdominal pain and a CT scan was obtained. This demonstrated free fluid and free air. Past medical history hypertension, coronary artery disease, dyslipidemia, femur fracture, dementia, hyponatremia Past surgical history-left femur fracture repair Social history-usually lives with her , recently in rehab. Otherwise, social history unknown Review of systems-unobtainable due to dementia Family history-none recorded in the chart, and patient has dementia Medications-aspirin 81 mg every day, ibuprofen 400 mg every 8 hours, Senokot 2 tablets twice a day as needed, tramadol 50 mg every 8 hours as needed, amlodipine 5 mg by mouth every day, lisinopril 20 mg by mouth every day, Bystolic 10 mg by mouth every day Allergies-barbiturates, fish-containing products, phenobarbital 145/50, 80, 98 General-elderly, does not appear to be in distress Head-[normocephalic, atraumatic] HEENT- [EOMI], [PERRLA], questionable right facial droop Neck-[trachea midline, supple] Lungs-[grossly clear to auscultation], [normal air movement] Heart-[regular regular], [no murmurs] Abdomen-[soft], [nondistended], patient has rebound and guarding with palpation especially in the right side of the abdomen, hypoactive bowel sounds Musculosketal-[patient bedbound, no gross deformity Psychiatric-she does not appear oriented, but tries to answer questions. She seems to have a speech impediment, and I cannot really understand what she is trying to say Skin-commiserate with her age, thin Neuro- [GCS 15], [CN II-XII intact] White blood cell count 13 CT scan-I independently viewed the images, I read the radiologist interpretation-there appears to be a perforation of the duodenum. There is free fluid in the right paracolic gutter and air around the liver and right diaphragm. Assessment-perforation of the duodenum-I spoke with Dr. Alatorre-technically, the E GD a few days ago went well. There was a very thin and shallow ulcer. He seemed surprised that there was a perforation. I spoke with the patient's . He wants us to proceed to the operating room to attempt at repair. I discussed the risks and benefits of proceeding to the operating room with him. Obvious risks include cardiovascular as well as cerebrovascular incidents given her age. Operatively, if the patient's ulcer was shallow and posterior, I am curious as to how there is an anterior perforation. The prevailing thought is that this is NSAID induced; therefore, we will proceed with an attempt at repair and Mauri patch. Patient's understands of the risks that she may need the intensive care unit and or ventilator support. Dementia-unfortunately, it is difficult to communicate with the patient. She seems to form coherent sentences, but they do not fit the context of the conversation. When I asked her who she would like me to call, she said her mother and father. Patient's states that she has been having increasing difficulty chewing and swallowing lately. He believes that she is been on the decline. Regardless, he wishes to proceed with surgery
--- NOTE | 2020-02-10 12:21 | PRG ---
DATE OF SERVICE: 02/10/2020 SUBJECTIVE: Ms. Dolan had her CT scan this morning after steroid preparation for IV contrast. Currently, she denies any abdominal pain. She has had no nausea or vomiting. She is getting up with Physical Therapy now. She has tenderness in the upper abdomen, but her lower abdomen is completely nontender. Her bowel sounds are active. OBJECTIVE: LUNGS: Clear to auscultation bilaterally. HEART: Regular rate and rhythm without murmur. EXTREMITIES: No lower extremity edema. NEUROLOGIC: She is oriented to her name, but otherwise has significant dementia. LABORATORY DATA: Her white blood cell count increased to 13.2 from 9 yesterday, hemoglobin is 9.7, and platelets 380. Creatinine 0.57. IMPRESSION: Perforated duodenal ulcer. CT scan shows free air and fluid. She is not septic; however, given the degree of the free fluid, plan is to follow through with surgical intervention. Her white blood cell count did increase again today. Otherwise, she is afebrile and she does not have significant peritoneal signs on exam currently. RECOMMENDATIONS: Dr. Cespedes with General Surgery has evaluated the patient. She will go for surgery today. Job ID: [id number]
[2020-02-10] MEDS ORDERED: Sodium Chloride 0.9% 0 ML ONE (12:24)
[2020-02-10] MEDS ORDERED: Esmolol 100 MG/10 ML VIAL ONE (12:30)
--- NOTE | 2020-02-10 13:18 | PDOC.HOSPP ---
- Subjective Encounter Date: 02/10/20 Encounter Time: 07:45 Subjective: Patient seen and examined.pt has abdominal pain, No overnight events - Objective Vital Signs & Weight: Vital Signs (12 hours) Temp Pulse Resp BP Pulse Ox 02/10/20 08:00 100 02/10/20 07:37 98.0 F 80 16 145/70 H 100 02/10/20 07:28 81 Weight Admit Weight 99 lb 8 oz Weight 99 lb 8 oz Most Recent Monitor Data Heart Rate from ECG 96 NIBP 152/75 NIBP BP-Mean 100 Respiration from ECG 21 SpO2 100 I&O: 02/09/20 02/10/20 02/11/20 06:59 06:59 06:59 Intake Total 1100 Output Total 1200 Balance -100 Result Diagrams: 02/10/20 08:29 02/10/20 08:29 Radiology Reviewed by me: Yes (CT abdomen reviewed) Hospitalist ROS - Review of Systems Constitutional: reports: weakness, malaise. denies: fever, chills, sweats, other ENT: denies: ear pain, ear discharge, nose pain, nose discharge, nose congestion, mouth pain, mouth swelling, throat pain, throat swelling, other Respiratory: denies: cough, dry, shortness of breath, hemoptysis, SOB with excer tion, pleuritic pain, sputum, wheezing, other Gastrointestinal: reports: abdominal pain. denies: nausea, vomiting, diarrhea, constipation, melena, hematochezia, other Genitourinary: denies: dysuria, frequency, incontinence, hematuria, retention, other Musculoskeletal: denies: neck pain, shoulder pain, arm pain, back pain, hand pain, leg pain, foot pain, other - Medication Medications: Active Medications Generic Name Dose Route Start Last Admin Trade Name Freq PRN Reason Stop Dose Admin Amlodipine Besylate 5 mg 02/09/20 09:00 02/10/20 07:28 Amlodipine 5 Mg Tab PO 5 mg DAILY JARET Administration Ceftriaxone Sodium 1 gm/ 100 mls @ 200 mls/hr 02/07/20 16:00 02/09/20 16:38 Sodium Chloride IVPB 100 mls Q24HR JARET Administration Nebivolol 10 mg 02/09/20 09:00 02/10/20 07:28 Nebivolol Hcl 5 Mg Tab PO 10 mg DAILY JARET Administration Pantoprazole Sodium 40 mg 02/07/20 21:00 02/10/20 07:29 Pantoprazole 40 Mg Vial IVP 40 mg Q12HR JARET Administration Sodium Chloride 10 ml 02/07/20 09:00 02/10/20 07:30 Flush - Normal Saline 10 Ml Syringe IVF Not Given Q12HR JARET Tramadol HCl 25 mg 02/09/20 08:25 02/09/20 11:01 Tramadol Hcl 50 Mg Tab PO 25 mg Q6H PRN Administration Pain - Exam General Appearance: NAD, ill appearing General - other findings: hard of hearing Eye: PERRL, anicteric sclera ENT: normocephalic atraumatic, no oropharyngeal lesions Neck: symmetric, no JVD, no thyromegaly Heart: RRR, no murmur, no gallops, no rubs Respiratory: no wheezes, no rales, no ronchi Gastrointestinal: tender to palpation Extremities: no cyanosis, no clubbing Skin: normal turgor, no lesions Neurological: no focal deficits Musculoskeletal: normal tone, normal strength Psychiatric: normal affect, normal behavior Hosp A/P (1) Duodenal ulcer perforation Code(s): K26.5 - CHRONIC OR UNSPECIFIED DUODENAL ULCER WITH PERFORATION Status: Acute (2) Abdominal pain Code(s): R10.9 - UNSPECIFIED ABDOMINAL PAIN Status: Acute Qualifiers: Abdominal location: right lower quadrant Qualified Code(s): R10.31 - Right lower quadrant pain (3) Anemia due to blood loss, chronic Code(s): D50.0 - IRON DEFICIENCY ANEMIA SECONDARY TO BLOOD LOSS (CHRONIC) Status: Acute (4) GI bleed due to NSAIDs Code(s): K92.2 - GASTROINTESTINAL HEMORRHAGE, UNSPECIFIED; T39.395A - ADVERSE EFFECT OF NONSTEROIDAL ANTI-INFLAMMATORY DRUGS, INIT Status: Acute (5) Peptic ulcer disease with hemorrhage Code(s): K27.4 - CHRONIC OR UNSP PEPTIC ULCER, SITE UNSP, WITH HEMORRHAGE Status: Acute (6) Hyponatremia Code(s): E87.1 - HYPO-OSMOLALITY AND HYPONATREMIA Status: Acute (7) CAD (coronary artery disease) Code(s): I25.10 - ATHSCL HEART DISEASE OF [place] CORONARY ARTERY W/O ANG PCTRS Status: Chronic Qualifiers: Coronary Disease-Associated Artery/Lesion type: [place] artery [place] vs. transplanted heart: [place] heart Associated angina: without angina Qualified Code(s): I25.10 - Atherosclerotic heart disease of [place] coronary artery without angina pectoris (8) Cognitive impairment Code(s): R41.89 - OTH SYMPTOMS AND SIGNS W COGNITIVE FUNCTIONS AND AWARENESS Status: Chronic (9) Dyslipidemia Code(s): E78.5 - HYPERLIPIDEMIA, UNSPECIFIED Status: Chronic (10) HTN (hypertension) Code(s): I10 - ESSENTIAL (PRIMARY) HYPERTENSION Status: Chronic Qualifiers: Hypertension type: essential hypertension (11) Dehydration Code(s): E86.0 - DEHYDRATION Status: Resolved - Plan old records reviewed/req Today after CT abdomen, noted that she has likely duodenal ulcer perforation, so called general surgery, kept NPO, will need surgery discussed finding with pt's will monitor Hb stable replace potassium
--- NOTE | 2020-02-10 13:24 | PDOC.OP ---
Operative Note - Operative Note Operative Note: Date of surgery-10 February 2020 Preop diagnosis-perforated duodenal ulcer Postop diagnosis-perforated duodenal ulcer Procedure performed-exploratory laparotomy with Mauri patch Anesthesia- [General] EBL- [minimal] Specimen- [none] Complications- [none] Sponge and needle count were correct x2 Indication for procedure-The patient is an 89-year-old female who was in the hospital for melena and anemia. She underwent an EGD several days ago that demonstrated a duodenal ulcer. She had abdominal pain overnight and a CT scan of the abdomen was obtained. This demonstrated free fluid as well as free air. She has been taken to the operating room for free air. Conduct of the operation-After written preoperative informed consent by the patient's , the patient was brought to the operating room, placed in the supine position and underwent general anesthesia. The abdomen was prepared and draped in sterile fashion. A timeout was performed. An upper midline incision was made. The abdomen was accessed. The falciform ligament was taken down. Exploration revealed some fibrinous rind over the duodenum near the pylorus. This was removed and a perforation was identified. This was a few millimeters across. Several silk Lembert's were placed across the area. A tongue of omentum was taken down with the LigaSure. These were placed under the silk sutures and secured. The right upper quadrant, perihepatic space, right pericolic gutter, and pelvis were all generously irrigated. A 19 German drain was brought in through the right lower quadrant and laid along the right paracolic gutter and into the edge of the liver near the duodenum and repair. Hemostasis was noted. Fascia was closed with 2-0 PDS. Incision was irrigated and closed with ethan. Sterile dressings were applied. Patient was extubated and taken the postanesthesia care area in good condition having tolerated procedure well
[2020-02-10] MEDS ORDERED: Ondansetron HCl/PF 4 MG/2 ML Vial IVP PRN (13:35)
[2020-02-10] MEDS ORDERED: Promethazine HCl 25 MG/ML VIAL SLOW IVP PRN (13:35)
[2020-02-10] MEDS ORDERED: Promethazine HCl 25 MG/ML VIAL IM PRN (13:35)
[2020-02-10] MEDS ORDERED: Potassium Chloride 10 MEQ in Premix Bag 1 BAG IVPB SCH (14:00)
[2020-02-10] MEDS ORDERED: Iopamidol-370 76% 500 ML 1 ML ONE (15:24)
[2020-02-10] MEDS: cefTRIAXone\\ROCEPHIN 1 GM in Sodium Chloride 0.9% 100 ML IVPB SCH (16:31)
[2020-02-10] MEDS: Morphine 2 MG/ML VIAL SLOW IVP PRN (21:03)
[2020-02-10] MEDS ORDERED: Morphine 2 MG/ML VIAL SLOW IVP SCH (23:59)
[2020-02-11] MEDS: Morphine 2 MG/ML VIAL SLOW IVP PRN ×2 (02:03→06:35)
[2020-02-11] MEDS ORDERED: Cepastat Lozenges 1 LOZ PO PRN (07:44)
[2020-02-11] MEDS ORDERED: Ondansetron PF 4 MG/2 ML Vial IVP PRN (07:44)
[2020-02-11] MEDS ORDERED: Sodium Chloride 0.65% Nasal 44 ML BOT EA NARE PRN (07:44)
[2020-02-11] MEDS ORDERED: hydrALAZINE 20 MG/ML VIAL SLOW IVP PRN (07:44)
[2020-02-11] MEDS: Pantoprazole 40 MG VIAL IVP SCH ×2 (08:43→20:26)
[2020-02-11] MEDS: Metoprolol Tartrate 5 MG/5 ML VIAL IVP SCH ×2 (08:51→20:26)
[2020-02-11 10:21] LABS: #Lymphocytes 0.9 thou/uL (1.20-3.40); #Monocytes 1.1 thou/uL (0.11-0.59); #Neutrophils 9.5 thou/uL (1.40-6.50); %Basophils 0.2 % (0.0-1.0); %Eosinophils 0.2 % (0.0-10.0); %Lymphocytes 7.8 % (21.0-51.0); %Monocytes 9.5 % (0.0-10.0); %Neutrophils 82.3 % (42.0-75.0); Hemoglobin 9.5 g/dL (12.0-16.0); Mean Corpuscular HGB CONC 32.8 g/dL (32.0-36.0); Mean Corpuscular Hemoglobin 31.5 pg (27.0-31.0); Mean Corpuscular Volume 96.1 fL (78.0-98.0); Mean Platelet Volume 6.5 fL (7.4-10.4); Platelet Count 410 thou/uL (130-400); RBC Distribution Width 15.3 % (11.5-14.5); Red Blood Cell (RBC) Count 3.01 mill/uL (4.20-5.40); White Blood Cell (WBC) Count 11.5 thou/uL (4.8-10.8)
[2020-02-11 10:40] LABS: Anion Gap 11 mmol/L (10-20); BUN (Urea Nitrogen) 20 mg/dL (9.8-20.1); Calc. Creatinine Clearance 54 mL/min (70-130); Calcium 8.5 mg/dL (7.8-10.44); Carbon Dioxide 26 mmol/L (23-31); Chloride 106 mmol/L (98-107); Estimated GFR-MDRD Greater than 90; Glucose 84 mg/dL (83-110); Potassium 3.1 mmol/L (3.5-5.1); Sodium 140 mmol/L (136-145)
--- NOTE | 2020-02-11 10:42 | PDOC.HOSPP ---
- Subjective Encounter Date: 02/11/20 Encounter Time: 09:00 Subjective: Patient seen and examined bedside today, no overnight event, no new complaint, patient had exploratory laparotomy yesterday and Mauri patch was applied to duodenal ulcer perforation - Objective Vital Signs & Weight: Vital Signs (12 hours) Temp Pulse Resp BP Pulse Ox 02/11/20 08:35 97.7 F 80 18 163/67 H 100 02/11/20 05:20 97.4 F L 71 16 149/63 H 98 02/11/20 00:00 97.9 F 69 16 153/64 H 95 Weight Admit Weight 99 lb 8 oz Weight 99 lb 8 oz Most Recent Monitor Data Heart Rate from ECG 96 NIBP 152/75 NIBP BP-Mean 100 Respiration from ECG 21 SpO2 100 I&O: 02/10/20 02/11/20 02/12/20 06:59 06:59 06:59 Intake Total 1100 240 540 Output Total 1200 75 300 Balance -100 165 240 Result Diagrams: 02/11/20 10:09 02/11/20 10:09 Hospitalist ROS - Review of Systems ENT: denies: ear pain, ear discharge, nose pain, nose discharge, nose congestion, mouth pain, mouth swelling, throat pain, throat swelling, other Respiratory: denies: cough, dry, shortness of breath, hemoptysis, SOB with excertion, pleuritic pain, sputum, wheezing, other Cardiovascular: denies: chest pain, palpitations, orthopnea, paroxysmal noc. dyspnea, edema, light headedness, other Gastrointestinal: reports: abdominal pain (Surgical site pain). denies: nausea, vomiting, diarrhea, constipation, melena, hematochezia, other Genitourinary: denies: dysuria, frequency, incontinence, hematuria, retention, other Musculoskeletal: denies: neck pain, shoulder pain, arm pain, back pain, hand pain, leg pain, foot pain, other - Medication Medications: Active Medications Generic Name Dose Route Start Last Admin Trade Name Freq PRN Reason Stop Dose Admin Ceftriaxone Sodium 1 gm/ 100 mls @ 200 mls/hr 02/07/20 16:00 02/10/20 16:31 Sodium Chloride IVPB 100 mls Q24HR JARET Administration Metoprolol Tartrate 5 mg 02/11/20 08:00 02/11/20 08:51 Metoprolol Tartrate 5 Mg/5 Ml Vial IVP 5 mg Q12H JARET Administration Morphine Sulfate 1 mg 02/10/20 13:35 02/11/20 06:35 Morphine 2 Mg/Ml Vial SLOW IVP 1 mg Q4H PRN Administration Pain Pantoprazole Sodium 40 mg 02/07/20 21:00 02/11/20 08:43 Pantoprazole 40 Mg Vial IVP 40 mg Q12HR JARET Administration Sodium Chloride 10 ml 02/07/20 09:00 02/11/20 08:43 Flush - Normal Saline 10 Ml Syringe IVF 10 ml Q12HR JARET Administration - Exam General Appearance: NAD, awake alert Eye: PERRL, anicteric sclera ENT: normocephalic atraumatic, no oropharyngeal lesions Neck: symmetric, no JVD Heart: RRR, no murmur, no gallops, no rubs Respiratory: no wheezes, no rales, no ronchi Gastrointestinal: soft Gastrointestinal - other findings: TRACE drain in place, surgical site with a dressing, no bowel sounds yet Extremities: no clubbing, no edema Skin: normal turgor, no lesions Neurological: no focal deficits Musculoskeletal: normal tone, normal strength Psychiatric: normal affect, normal behavior Hosp A/P (1) Duodenal ulcer perforation Code(s): K26.5 - CHRONIC OR UNSPECIFIED DUODENAL ULCER WITH PERFORATION Status: Acute Plan: S/p exploratory laparotomy and Mauri patch application, postoperative day 1 (2) Abdominal pain Code(s): R10.9 - UNSPECIFIED ABDOMINAL PAIN Status: Resolved (3) Anemia due to blood loss, chronic Code(s): D50.0 - IRON DEFICIENCY ANEMIA SECONDARY TO BLOOD LOSS (CHRONIC) Status: Acute Plan: S/p 2 unit PRBC (4) GI bleed due to NSAIDs Code(s): K92.2 - GASTROINTESTINAL HEMORRHAGE, UNSPECIFIED; T39.395A - ADVERSE EFFECT OF NONSTEROIDAL ANTI-INFLAMMATORY DRUGS, INIT Status: Resolved (5) Peptic ulcer disease with hemorrhage Code(s): K27.4 - CHRONIC OR UNSP PEPTIC ULCER, SITE UNSP, WITH HEMORRHAGE Status: Acute Plan: It is post upper endoscopy and found with a large duodenal ulcer (6) Hyponatremia Code(s): E87.1 - HYPO-OSMOLALITY AND HYPONATREMIA Status: Resolved (7) CAD (coronary artery disease) Code(s): I25.10 - ATHSCL HEART DISEASE OF [place] CORONARY ARTERY W/O ANG PCTRS Status: Chronic Qualifiers: Coronary Disease-Associated Artery/Lesion type: [place] artery [place] vs. transplanted heart: [place] heart Associated angina: without angina Qualified Code(s): I25.10 - Atherosclerotic heart disease of [place] coronary artery without angina pectoris (8) Cognitive impairment Code(s): R41.89 - OTH SYMPTOMS AND SIGNS W COGNITIVE FUNCTIONS AND AWARENESS Status: Chronic (9) Dyslipidemia Code(s): E78.5 - HYPERLIPIDEMIA, UNSPECIFIED Status: Chronic (10) HTN (hypertension) Code(s): I10 - ESSENTIAL (PRIMARY) HYPERTENSION Status: Chronic Qualifiers: Hypertension type: essential hypertension (11) UTI (urinary tract infection) Status: Acute Qualifiers: Urinary tract infection type: acute cystitis Plan: 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
--- NOTE | 2020-02-11 11:43 | PDOC.GSPN ---
Surgery Progress Note: Subj - Subjective Narrative: Patient is postoperative day 1 from exploratory laparotomy with Mauri patch-the patient does have dementia, but she seems to be doing well. She is thirsty for coffee. Denies any abdominal pain. Surgery Progress Note: Obj - Vital signs Vital signs: Vital Signs - Most Recent Temp Pulse Resp BP Pulse Ox 97.7 F 80 18 163/67 H 100 02/11/20 08:35 02/11/20 08:35 02/11/20 08:35 02/11/20 08:35 02/11/20 08:35 - Physical Exam Additional exam: General-comfortable, Head-[normocephalic, atraumatic] HEENT- [EOMI], [PERRLA] Neck-[trachea midline, supple] Lungs-[grossly clear to auscultation], [normal air movement] Heart-[regular regular], [no murmurs] Abdomen-[soft], [nondistended], minimally tender, [normal active bowel sounds], Braden-Brennan drain is serosanguineous Musculosketal-[full range of motion], [no gross deformity] Psychiatric-[good insight, good judgment] Skin-[good turgor, no jaundice] Neuro- [GCS 15], [CN II-XII intact] Surgery Progress Note: Results - Labs Result Diagrams: 02/11/20 10:09 02/11/20 10:09 Lab results: Laboratory Results - last 12 hr 02/11/20 02/11/20 10:09 10:09 WBC 11.5 H RBC 3.01 L Hgb 9.5 L Hct 28.9 L MCV 96.1 MCH 31.5 H MCHC 32.8 RDW 15.3 H Plt Count 410 H MPV 6.5 L Neutrophils % 82.3 H Lymphocytes % 7.8 L Monocytes % 9.5 Eosinophils % 0.2 Basophils % 0.2 Neutrophils # 9.5 H Lymphocytes # 0.9 L Monocytes # 1.1 H Eosinophils # 0.0 Basophils # 0.0 Sodium 140 Potassium 3.1 L Chloride 106 Carbon Dioxide 26 Anion Gap 11 BUN 20 Creatinine 0.51 L Estimated GFR (MDRD) Greater than 90 Glucose 84 Calcium 8.5 Surgery Progress Note: A/P - Problem (1) Duodenal ulcer perforation Current Visit: Yes Code(s): K26.5 - CHRONIC OR UNSPECIFIED DUODENAL ULCER WITH PERFORATION Status: Acute Assessment and Plan: Postop day 1-she seems to be doing well. White blood cell count is decreasing. Vital signs are within normal. She is hungry. Her abdomen is flat. She has good bowel sounds. Her Braden-Brennan drain is serous. I will start her on a clear liquid diet today. She tolerates this well, and the character of her Braden-Brennan drain does not change, more than likely remove her drain tomorrow. Following that, she should be nearing criteria for discharge given that she can tolerate a diet.
--- NOTE | 2020-02-11 12:17 | PRG ---
DATE OF SERVICE: 02/11/2020 SUBJECTIVE: Ms. Dolan underwent surgery yesterday with Mauri patch over a small duodenal perforation. She tolerated the procedure well and is currently without complaints. OBJECTIVE: VITAL SIGNS: Temperature 97.7, pulse 80, blood pressure 163/67. GENERAL: She is in no acute distress. LUNGS: Clear to auscultation bilaterally. HEART: Regular rate and rhythm. ABDOMEN: Soft, tender in the upper abdomen, but nontender in the lower abdomen. Bowel sounds are present. EXTREMITIES: No lower extremity edema. LABORATORY DATA: Hemoglobin is 9.5. Creatinine 0.51. IMPRESSION: 1. Perforated duodenal ulcer, status post laparotomy and Mauri patch. 2. Dementia and deconditioning. RECOMMENDATIONS: 1. Continue postoperative care per General Surgery. Diet will be advanced per General Surgery. 2. Continue proton pump inhibitor IV. I will sign off for now. Please call if GI can be of assistance. Job ID: [id number]
[2020-02-11] MEDS: cefTRIAXone\\ROCEPHIN 1 GM in Sodium Chloride 0.9% 100 ML IVPB SCH (17:31)
[2020-02-12] MEDS: Morphine 2 MG/ML VIAL SLOW IVP PRN (04:29)
[2020-02-12 06:12] LABS: #Eosinphils 0.1 thou/uL (0.0-0.7); #Lymphocytes 0.8 thou/uL (1.20-3.40); #Monocytes 1.2 thou/uL (0.11-0.59); #Neutrophils 8.8 thou/uL (1.40-6.50); %Basophils 0.1 % (0.0-1.0); %Eosinophils 0.7 % (0.0-10.0); %Lymphocytes 7.6 % (21.0-51.0); %Monocytes 10.9 % (0.0-10.0); %Neutrophils 80.7 % (42.0-75.0); Hemoglobin 10.3 g/dL (12.0-16.0); Mean Corpuscular HGB CONC 33.8 g/dL (32.0-36.0); Mean Corpuscular Volume 94.7 fL (78.0-98.0); Mean Platelet Volume 6.7 fL (7.4-10.4); Platelet Count 436 thou/uL (130-400); RBC Distribution Width 14.7 % (11.5-14.5); Red Blood Cell (RBC) Count 3.22 mill/uL (4.20-5.40); White Blood Cell (WBC) Count 10.9 thou/uL (4.8-10.8)
[2020-02-12 06:39] LABS: ALT (SGPT) 10 U/L (8-55); AST (SGOT) 16 U/L (5-34); Albumin 2.8 g/dL (3.4-4.8); Alkaline Phosphatase 81 U/L (40-110); Anion Gap 14 mmol/L (10-20); BUN (Urea Nitrogen) 9 mg/dL (9.8-20.1); Bilirubin, Total 0.9 mg/dL (0.2-1.2); Calc. Creatinine Clearance 64 mL/min (70-130); Carbon Dioxide 26 mmol/L (23-31); Chloride 100 mmol/L (98-107); Estimated GFR-MDRD Greater than 90; Globulin 2.4 g/dL (2.4-3.5); Glucose 88 mg/dL (83-110); Magnesium 1.5 mg/dL (1.6-2.6); Phosphorus 1.6 mg/dL (2.3-4.7); Potassium 2.6 mmol/L (3.5-5.1); Protein, Total 5.2 g/dL (6.0-8.3); Sodium 137 mmol/L (136-145)
[2020-02-12] MEDS ORDERED: Potassium Phosphate 30 MMOL in Sodium Chloride 0.9% 250 ML 250 ML IVPB SCH (07:15)
[2020-02-12] MEDS ORDERED: Potassium Chloride 20 MEQ TAB PO SCH (07:15)
[2020-02-12] MEDS ORDERED: Magnesium Sulfate 3 GM in Sodium Chloride 0.9% 100 ML IVPB SCH (07:45)
[2020-02-12] MEDS: Pantoprazole 40 MG VIAL IVP SCH ×2 (08:18→21:29)
[2020-02-12] MEDS: Metoprolol Tartrate 5 MG/5 ML VIAL IVP SCH ×2 (08:18→21:31)
--- NOTE | 2020-02-12 10:17 | PDOC.HOSPP ---
- Subjective Encounter Date: 02/12/20 Encounter Time: 09:10 Subjective: Patient is pleasantly confused, no overnight event, no fever, - Objective Vital Signs & Weight: Vital Signs (12 hours) Temp Pulse Resp BP Pulse Ox 02/12/20 07:45 97.9 F 95 18 148/79 H 96 02/12/20 04:28 97.9 F 88 18 174/66 H 93 L 02/12/20 00:00 97.8 F 92 16 170/80 H 95 Weight Admit Weight 99 lb 8 oz Weight 99 lb 8 oz Most Recent Monitor Data Heart Rate from ECG 96 NIBP 152/75 NIBP BP-Mean 100 Respiration from ECG 21 SpO2 100 I&O: 02/11/20 02/12/20 02/13/20 06:59 06:59 06:59 Intake Total 240 1740 Output Total 75 1870 Balance 165 -130 Result Diagrams: 02/12/20 05:39 02/12/20 05:39 Hospitalist ROS - Review of Systems ROS unobtainable: due to mental status - Medication Medications: Active Medications Generic Name Dose Route Start Last Admin Trade Name Freq PRN Reason Stop Dose Admin Ceftriaxone Sodium 1 gm/ 100 mls @ 200 mls/hr 02/07/20 16:00 02/11/20 17:31 Sodium Chloride IVPB 100 mls Q24HR JARET Administration Potassium Phosphate 30 mmol/ 260 mls @ 43.333 mls/hr 02/12/20 07:15 02/12/20 08:17 Sodium Chloride IVPB 02/12/20 14:00 260 mls NOW JARET Administration Magnesium Sulfate 3 gm/ Sodium 106 mls @ 100 mls/hr 02/12/20 07:45 02/12/20 08:33 Chloride IVPB 02/12/20 11:00 106 mls NOW JARET Administration Metoprolol Tartrate 5 mg 02/11/20 08:00 02/12/20 08:18 Metoprolol Tartrate 5 Mg/5 Ml Vial IVP 5 mg Q12H JARET Administration Morphine Sulfate 1 mg 02/10/20 13:35 02/12/20 04:29 Morphine 2 Mg/Ml Vial SLOW IVP 1 mg Q4H PRN Administration Pain Pantoprazole Sodium 40 mg 02/07/20 21:00 02/12/20 08:18 Pantoprazole 40 Mg Vial IVP 40 mg Q12HR JARET Administration Sodium Chloride 10 ml 02/07/20 09:00 02/12/20 08:18 Flush - Normal Saline 10 Ml Syringe IVF 10 ml Q12HR JARET Administration - Exam General Appearance: NAD, awake alert Eye: PERRL, anicteric sclera ENT: normocephalic atraumatic, no oropharyngeal lesions Neck: supple, symmetric, no JVD Heart: RRR, no murmur, no gallops, no rubs Respiratory: no wheezes, no rales, no ronchi Gastrointestinal: soft Gastrointestinal - other findings: TRACE drain in place, surgical site with dressing Extremities: no clubbing, no edema Skin: normal turgor, no lesions Neurological: no new deficit Musculoskeletal: normal tone, normal strength Psychiatric: not oriented Hosp A/P (1) Duodenal ulcer perforation Code(s): K26.5 - CHRONIC OR UNSPECIFIED DUODENAL ULCER WITH PERFORATION Status: Acute (2) S/P exploratory laparotomy Status: Acute (3) Abdominal pain Code(s): R10.9 - UNSPECIFIED ABDOMINAL PAIN Status: Resolved (4) Anemia due to blood loss, chronic Code(s): D50.0 - IRON DEFICIENCY ANEMIA SECONDARY TO BLOOD LOSS (CHRONIC) Status: Acute (5) GI bleed due to NSAIDs Code(s): K92.2 - GASTROINTESTINAL HEMORRHAGE, UNSPECIFIED; T39.395A - ADVERSE EFFECT OF NONSTEROIDAL ANTI-INFLAMMATORY DRUGS, INIT Status: Resolved (6) Peptic ulcer disease with hemorrhage Code(s): K27.4 - CHRONIC OR UNSP PEPTIC ULCER, SITE UNSP, WITH HEMORRHAGE Status: Acute (7) CAD (coronary artery disease) Code(s): I25.10 - ATHSCL HEART DISEASE OF [place] CORONARY ARTERY W/O ANG PCTRS Status: Chronic Qualifiers: Coronary Disease-Associated Artery/Lesion type: [place] artery [place] vs. transplanted heart: [place] heart Associated angina: without angina Qualified Code(s): I25.10 - Atherosclerotic heart disease of [place] coronary artery without angina pectoris (8) Cognitive impairment Code(s): R41.89 - OTH SYMPTOMS AND SIGNS W COGNITIVE FUNCTIONS AND AWARENESS Status: Chronic (9) Dyslipidemia Code(s): E78.5 - HYPERLIPIDEMIA, UNSPECIFIED Status: Chronic (10) HTN (hypertension) Code(s): I10 - ESSENTIAL (PRIMARY) HYPERTENSION Status: Chronic Qualifiers: Hypertension type: essential hypertension (11) UTI (urinary tract infection) Status: Acute Qualifiers: Urinary tract infection type: acute cystitis (12) Hypokalemia Code(s): E87.6 - HYPOKALEMIA Status: Acute (13) Hypophosphatemia Code(s): E83.39 - OTHER DISORDERS OF PHOSPHORUS METABOLISM Status: Acute (14) Hypomagnesemia Code(s): E83.42 - HYPOMAGNESEMIA Status: Acute (15) Dehydration Code(s): E86.0 - DEHYDRATION Status: Resolved (16) Hyponatremia Code(s): E87.1 - HYPO-OSMOLALITY AND HYPONATREMIA Status: Resolved - Plan old records reviewed/req Replace potassium and phosphate Replace magnesium sulfate Diet as per general surgeon We will repeat labs tomorrow Ambulate as tolerated Continue Rocephin
[2020-02-12] MEDS ORDERED: Potassium Phosphate 15 MMOL in Sodium Chloride 0.9% 250 ML 250 ML IVPB SCH (12:00)
[2020-02-12] MEDS: cefTRIAXone\\ROCEPHIN 1 GM in Sodium Chloride 0.9% 100 ML IVPB SCH (15:57)
--- NOTE | 2020-02-12 16:55 | PDOC.GSPN ---
Surgery Progress Note: Subj - Subjective Narrative: Patient remains pleasantly demented today. It sounds like she has been tolerating 50 to 75% of her clear liquids. Her is at bedside today and states that she has had problems eating for some time. Unfortunately, it is not practical to get a history from the patient given her dementia. Surgery Progress Note: Obj - Vital signs Vital signs: Vital Signs - Most Recent Temp Pulse Resp BP Pulse Ox 97.5 F L 85 18 159/80 H 93 L 02/12/20 15:32 02/12/20 15:32 02/12/20 15:32 02/12/20 15:32 02/12/20 15:32 - Physical Exam Additional exam: Lungs-grossly clear bilaterally Heart-regular regular Abdomen-soft, flat, normal active bowel sounds Braden-Brennan is serosanguineous. Incision is clean and dry without drainage Surgery Progress Note: Results - Labs Result Diagrams: 02/12/20 05:39 02/12/20 05:39 Lab results: Laboratory Results - last 12 hr 02/12/20 02/12/20 05:39 05:39 WBC 10.9 H RBC 3.22 L Hgb 10.3 L Hct 30.5 L MCV 94.7 MCH 32.0 H MCHC 33.8 RDW 14.7 H Plt Count 436 H MPV 6.7 L Neutrophils % 80.7 H Lymphocytes % 7.6 L Monocytes % 10.9 H Eosinophils % 0.7 Basophils % 0.1 Neutrophils # 8.8 H Lymphocytes # 0.8 L Monocytes # 1.2 H Eosinophils # 0.1 Basophils # 0.0 Sodium 137 Potassium 2.6 L* Chloride 100 Carbon Dioxide 26 Anion Gap 14 BUN 9 L Creatinine 0.43 L Estimated GFR (MDRD) Greater than 90 Glucose 88 Calcium 8.0 Phosphorus 1.6 L Magnesium 1.5 L Total Bilirubin 0.9 AST 16 ALT 10 Alkaline Phosphatase 81 Serum Total Protein 5.2 L Albumin 2.8 L Globulin 2.4 Albumin/Globulin Ratio 1.2 Surgery Progress Note: A/P - Problem (1) Duodenal ulcer perforation Current Visit: Yes Code(s): K26.5 - CHRONIC OR UNSPECIFIED DUODENAL ULCER WITH PERFORATION Status: Acute Assessment and Plan: The team needs to start anticipating discharge. From my standpoint, I will advance her to a regular diet. If she tolerates this, her drain can be removed and she may be transferred to her ultimate disposition. She is postoperative day 2 and her ethan need to be removed in 5 to 7 days. Remove Banks catheter. Her vital signs are normal. She does not need antibiotics for any surgical indication.
[2020-02-13 06:02] LABS: Phosphorus 2.6 mg/dL (2.3-4.7); Potassium 2.8 mmol/L (3.5-5.1)
[2020-02-13] MEDS ORDERED: Potassium Chloride 20 MEQ in Premix Bag 1 BAG IVPB SCH (06:45)
[2020-02-13] MEDS ORDERED: Potassium Chloride 20 MEQ TAB PO SCH (06:45)
--- NOTE | 2020-02-13 07:51 | PDOC.GSPN ---
Surgery Progress Note: Subj - Subjective Narrative: No significant events overnight per the nursing staff. Patient is tolerating boost. Diet order for last night was too late for dinner, she will get a regular breakfast this morning. She had a bowel movement per nursing staff. Surgery Progress Note: Obj - Vital signs Vital signs: Vital Signs - Most Recent Temp Pulse Resp BP Pulse Ox 98.0 F 87 20 136/62 95 02/13/20 07:25 02/13/20 07:25 02/13/20 07:25 02/13/20 07:25 02/13/20 07:25 - Physical Exam Additional exam: General-[no acute distress, well-nourished] Head-[normocephalic, atraumatic] HEENT- [EOMI], [PERRLA] Neck-[trachea midline, supple] Lungs-[grossly clear to auscultation], [normal air movement] Heart-[regular regular], [no murmurs] Abdomen-[soft], [nondistended], [nontender], [normal active bowel sounds], incision is clean dry and intact without erythema. Kleber are intact. Drain was removed. Musculosketal-[full range of motion], [no gross deformity] Psychiatric-[good insight, good judgment] Skin-[good turgor, no jaundice] Neuro- [GCS 15], [CN II-XII intact] Surgery Progress Note: Results - Labs Result Diagrams: 02/12/20 05:39 02/13/20 05:02 Lab results: Laboratory Results - last 12 hr 02/10/20 02/13/20 12:11 05:02 Potassium 2.8 L* Phosphorus 2.6 Magnesium 2.0 Crossmatch See Detail Surgery Progress Note: A/P - Problem (1) Duodenal ulcer perforation Current Visit: Yes Code(s): K26.5 - CHRONIC OR UNSPECIFIED DUODENAL ULCER WITH PERFORATION Status: Acute Assessment and Plan: Patient is postoperative day 3 from an open Mauri patch repair-her diet has been advanced, she is having bowel movements, she is afebrile, her drain has been removed, her incision is clean dry and intact. Surgically, she seems to be doing well. Once the remaining medical issues have been addressed, she may be dispositioned. She needs staple removal sometime around the first week of February. She may follow-up with me in clinic. My office number is [phone]
[2020-02-13] MEDS ORDERED: Senokot S 8.6-50 MG TAB PO PRN (07:58)
[2020-02-13] MEDS ORDERED: Loperamide HCl 2 MG CAP PO PRN (07:58)
[2020-02-13] MEDS ORDERED: Calcium Carbonate 500 MG ChewTAB PO PRN (07:58)
[2020-02-13] MEDS ORDERED: Diabetic Tussin 200 MG/10 ML UDCUP PO PRN (07:58)
[2020-02-13] MEDS ORDERED: Bisacodyl 10 MG SUPP PR PRN (07:58)
[2020-02-13] MEDS ORDERED: Ondansetron ODT 4 MG TAB PO PRN (07:58)
[2020-02-13] MEDS ORDERED: Polyethylene Glycol 3350 17 GM Packet PO PRN (07:58)
[2020-02-13] MEDS ORDERED: traMADol HCl 50 MG TAB PO PRN (07:58)
[2020-02-13] MEDS ORDERED: HYDROcodone/Acetaminophen 5/325 mg Tablet PO PRN (07:58)
[2020-02-13] MEDS ORDERED: Acetaminophen 325 MG TAB PO PRN (08:06)
[2020-02-13] MEDS: Pantoprazole 40 MG VIAL IVP SCH ×2 (10:54→21:55)
--- NOTE | 2020-02-13 11:57 | PDOC.HOSPP ---
- Subjective Encounter Date: 02/13/20 Encounter Time: 10:35 Subjective: Patient seen and examined. No new complaints. No overnight events - Objective Vital Signs & Weight: Vital Signs (12 hours) Temp Pulse Resp BP Pulse Ox 02/13/20 11:01 97.7 F 100 18 177/75 H 96 02/13/20 07:25 98.0 F 87 20 136/62 95 02/13/20 05:00 97.8 F 82 17 171/77 H 02/13/20 00:10 89 18 177/89 H 96 Weight Admit Weight 99 lb 8 oz Weight 99 lb 8 oz Most Recent Monitor Data Heart Rate from ECG 96 NIBP 152/75 NIBP BP-Mean 100 Respiration from ECG 21 SpO2 100 I&O: 02/12/20 02/13/20 02/14/20 06:59 06:59 06:59 Intake Total 1740 1600 Output Total 1870 1325 Balance -130 275 Result Diagrams: 02/12/20 05:39 02/13/20 05:02 Hospitalist ROS - Review of Systems ROS unobtainable: due to mental status - Medication Medications: Active Medications Generic Name Dose Route Start Last Admin Trade Name Freq PRN Reason Stop Dose Admin Ceftriaxone Sodium 1 gm/ 100 mls @ 200 mls/hr 02/07/20 16:00 02/12/20 15:57 Sodium Chloride IVPB 100 mls Q24HR JARET Administration Morphine Sulfate 1 mg 02/10/20 13:35 02/12/20 04:29 Morphine 2 Mg/Ml Vial SLOW IVP 1 mg Q4H PRN Administration Pain Pantoprazole Sodium 40 mg 02/07/20 21:00 02/13/20 10:54 Pantoprazole 40 Mg Vial IVP 40 mg Q12HR JARET Administration Sodium Chloride 10 ml 02/07/20 09:00 02/13/20 11:13 Flush - Normal Saline 10 Ml Syringe IVF 10 ml Q12HR JARET Administration - Exam General Appearance: NAD, awake alert Eye: PERRL, anicteric sclera ENT: normocephalic atraumatic, no oropharyngeal lesions Neck: supple, symmetric, no JVD, no thyromegaly Heart: RRR, no murmur, no gallops, no rubs Respiratory: CTAB, no wheezes, no rales, no ronchi Gastrointestinal: soft, non-tender, non-distended, normal bowel sounds Gastrointestinal - other findings: Surgical site is clean and healthy Extremities: no cyanosis, no clubbing, no edema Skin: normal turgor, no lesions Neurological: no focal deficits Musculoskeletal: normal tone, normal strength Psychiatric: normal affect, normal behavior Hosp A/P (1) Duodenal ulcer perforation Code(s): K26.5 - CHRONIC OR UNSPECIFIED DUODENAL ULCER WITH PERFORATION Status: Acute (2) S/P exploratory laparotomy Status: Acute (3) Abdominal pain Code(s): R10.9 - UNSPECIFIED ABDOMINAL PAIN Status: Resolved (4) Anemia due to blood loss, chronic Code(s): D50.0 - IRON DEFICIENCY ANEMIA SECONDARY TO BLOOD LOSS (CHRONIC) Status: Acute (5) GI bleed due to NSAIDs Code(s): K92.2 - GASTROINTESTINAL HEMORRHAGE, UNSPECIFIED; T39.395A - ADVERSE EFFECT OF NONSTEROIDAL ANTI-INFLAMMATORY DRUGS, INIT Status: Resolved (6) Peptic ulcer disease with hemorrhage Code(s): K27.4 - CHRONIC OR UNSP PEPTIC ULCER, SITE UNSP, WITH HEMORRHAGE Status: Acute (7) CAD (coronary artery disease) Code(s): I25.10 - ATHSCL HEART DISEASE OF [place] CORONARY ARTERY W/O ANG PCTRS Status: Chronic Qualifiers: Coronary Disease-Associated Artery/Lesion type: [place] artery [place] vs. transplanted heart: [place] heart Associated angina: without angina Qualified Code(s): I25.10 - Atherosclerotic heart disease of [place] coronary artery without angina pectoris (8) Cognitive impairment Code(s): R41.89 - OTH SYMPTOMS AND SIGNS W COGNITIVE FUNCTIONS AND AWARENESS Status: Chronic (9) Dyslipidemia Code(s): E78.5 - HYPERLIPIDEMIA, UNSPECIFIED Status: Chronic (10) HTN (hypertension) Code(s): I10 - ESSENTIAL (PRIMARY) HYPERTENSION Status: Chronic Qualifiers: Hypertension type: essential hypertension (11) UTI (urinary tract infection) Status: Acute Qualifiers: Urinary tract infection type: acute cystitis (12) Hypokalemia Code(s): E87.6 - HYPOKALEMIA Status: Acute (13) Hypophosphatemia Code(s): E83.39 - OTHER DISORDERS OF PHOSPHORUS METABOLISM Status: Resolved (14) Hypomagnesemia Code(s): E83.42 - HYPOMAGNESEMIA Status: Resolved - Plan old records reviewed/req, continue antibiotics, PT/OT, social services designee Replace potassium TRACE drain has been removed Continue PT OT Discharge planning We will add Bystolic 5 mg p.o. daily, lisinopril 20 mg p.o. daily Discontinue metoprolol
[2020-02-13] MEDS ORDERED: Nebivolol HCl 5 MG TAB PO SCH (12:00)
[2020-02-13] MEDS ORDERED: Lisinopril 20 MG TAB PO SCH (12:00)
[2020-02-13] MEDS: Metoprolol Tartrate 5 MG/5 ML VIAL IVP SCH (12:46)
[2020-02-13] MEDS: cefTRIAXone\\ROCEPHIN 1 GM in Sodium Chloride 0.9% 100 ML IVPB SCH (15:08)
[2020-02-14 06:02] LABS: #Basophils 0.1 thou/uL (0.0-0.2); #Eosinphils 0.2 thou/uL (0.0-0.7); #Neutrophils 5.5 thou/uL (1.40-6.50); %Eosinophils 2.4 % (0.0-10.0); %Lymphocytes 12.6 % (21.0-51.0); %Monocytes 12.7 % (0.0-10.0); %Neutrophils 71.4 % (42.0-75.0); Hemoglobin 9.8 g/dL (12.0-16.0); Mean Corpuscular HGB CONC 33.3 g/dL (32.0-36.0); Mean Corpuscular Hemoglobin 32.1 pg (27.0-31.0); Mean Corpuscular Volume 96.4 fL (78.0-98.0); Mean Platelet Volume 6.8 fL (7.4-10.4); Platelet Count 396 thou/uL (130-400); RBC Distribution Width 14.9 % (11.5-14.5); Red Blood Cell (RBC) Count 3.04 mill/uL (4.20-5.40); White Blood Cell (WBC) Count 7.7 thou/uL (4.8-10.8)
[2020-02-14 06:23] LABS: Anion Gap 13 mmol/L (10-20); BUN (Urea Nitrogen) 11 mg/dL (9.8-20.1); Calc. Creatinine Clearance 54 mL/min (70-130); Calcium 8.2 mg/dL (7.8-10.44); Carbon Dioxide 27 mmol/L (23-31); Chloride 104 mmol/L (98-107); Estimated GFR-MDRD Greater than 90; Glucose 85 mg/dL (83-110); Potassium 3.6 mmol/L (3.5-5.1); Sodium 140 mmol/L (136-145)
[2020-02-14] MEDS: Nebivolol HCl 5 MG TAB PO SCH (08:53)
[2020-02-14] MEDS: Lisinopril 20 MG TAB PO SCH (08:53)
[2020-02-14] MEDS: Pantoprazole 40 MG VIAL IVP SCH ×2 (08:55→21:05)
--- NOTE | 2020-02-14 10:58 | PDOC.HOSPP ---
- Subjective Encounter Date: 02/14/20 Encounter Time: 09:10 Subjective: Patient seen and examined. No new complaints. No overnight events - Objective Vital Signs & Weight: Vital Signs (12 hours) Temp Pulse Resp BP Pulse Ox 02/14/20 07:41 97.3 F L 79 18 166/74 H 96 Weight Admit Weight 99 lb 8 oz Weight 99 lb 8 oz Most Recent Monitor Data Heart Rate from ECG 96 NIBP 152/75 NIBP BP-Mean 100 Respiration from ECG 21 SpO2 100 I&O: 02/13/20 02/14/20 02/15/20 06:59 06:59 06:59 Intake Total 1600 250 Output Total 1325 Balance 275 250 Result Diagrams: 02/14/20 05:17 02/14/20 05:17 Hospitalist ROS - Review of Systems ENT: denies: ear pain, ear discharge, nose pain, nose discharge, nose congestion, mouth pain, mouth swelling, throat pain, throat swelling, other Respiratory: denies: cough, dry, shortness of breath, hemoptysis, SOB with excertion, pleuritic pain, sputum, wheezing, other Cardiovascular: denies: chest pain, palpitations, orthopnea, paroxysmal noc. dyspnea, edema, light headedness, other Gastrointestinal: denies: nausea, vomiting, abdominal pain, diarrhea, constipation, melena, hematochezia, other Genitourinary: denies: dysuria, frequency, incontinence, hematuria, retention, other Musculoskeletal: denies: neck pain, shoulder pain, arm pain, back pain, hand pain, leg pain, foot pain, other - Medication Medications: Active Medications Generic Name Dose Route Start Last Admin Trade Name Geneq PRN Reason Stop Dose Admin Ceftriaxone Sodium 1 gm/ 100 mls @ 200 mls/hr 02/07/20 16:00 02/13/20 15:08 Sodium Chloride IVPB 100 mls Q24HR JARET Administration Lisinopril 20 mg 02/14/20 09:00 02/14/20 08:53 Lisinopril 20 Mg Tab PO 20 mg DAILY JARET Administration Morphine Sulfate 1 mg 02/10/20 13:35 02/12/20 04:29 Morphine 2 Mg/Ml Vial SLOW IVP 1 mg Q4H PRN Administration Pain Nebivolol 5 mg 02/14/20 09:00 02/14/20 08:53 Nebivolol Hcl 5 Mg Tab PO 5 mg DAILY JARET Administration Pantoprazole Sodium 40 mg 02/07/20 21:00 02/14/20 08:55 Pantoprazole 40 Mg Vial IVP 40 mg Q12HR JARET Administration Sodium Chloride 10 ml 02/07/20 09:00 02/14/20 08:56 Flush - Normal Saline 10 Ml Syringe IVF 10 ml Q12HR JARET Administration - Exam General Appearance: NAD, awake alert Eye: PERRL, anicteric sclera ENT: normocephalic atraumatic, no oropharyngeal lesions Neck: supple, symmetric, no JVD, no thyromegaly Heart: RRR, no murmur, no gallops, no rubs Respiratory: no wheezes, no rales, no ronchi Gastrointestinal: soft, non-tender, non-distended, normal bowel sounds Gastrointestinal - other findings: Surgical site is clean and healthy Extremities: no clubbing, no edema Skin: normal turgor, no lesions Neurological: no focal deficits Musculoskeletal: normal tone, normal strength Psychiatric: normal affect, normal behavior Hosp A/P (1) Duodenal ulcer perforation Code(s): K26.5 - CHRONIC OR UNSPECIFIED DUODENAL ULCER WITH PERFORATION Status: Acute (2) S/P exploratory laparotomy Status: Acute (3) Abdominal pain Code(s): R10.9 - UNSPECIFIED ABDOMINAL PAIN Status: Resolved (4) Anemia due to blood loss, chronic Code(s): D50.0 - IRON DEFICIENCY ANEMIA SECONDARY TO BLOOD LOSS (CHRONIC) Status: Acute (5) GI bleed due to NSAIDs Code(s): K92.2 - GASTROINTESTINAL HEMORRHAGE, UNSPECIFIED; T39.395A - ADVERSE EFFECT OF NONSTEROIDAL ANTI-INFLAMMATORY DRUGS, INIT Status: Resolved (6) Peptic ulcer disease with hemorrhage Code(s): K27.4 - CHRONIC OR UNSP PEPTIC ULCER, SITE UNSP, WITH HEMORRHAGE Status: Acute (7) CAD (coronary artery disease) Code(s): I25.10 - ATHSCL HEART DISEASE OF [place] CORONARY ARTERY W/O ANG PCTRS Status: Chronic Qualifiers: Coronary Disease-Associated Artery/Lesion type: [place] artery [place] vs. transplanted heart: [place] heart Associated angina: without angina Qualified Code(s): I25.10 - Atherosclerotic heart disease of [place] coronary artery without angina pectoris (8) Cognitive impairment Code(s): R41.89 - OTH SYMPTOMS AND SIGNS W COGNITIVE FUNCTIONS AND AWARENESS Status: Chronic (9) Dyslipidemia Code(s): E78.5 - HYPERLIPIDEMIA, UNSPECIFIED Status: Chronic (10) HTN (hypertension) Code(s): I10 - ESSENTIAL (PRIMARY) HYPERTENSION Status: Chronic Qualifiers: Hypertension type: essential hypertension (11) UTI (urinary tract infection) Status: Acute Qualifiers: Urinary tract infection type: acute cystitis (12) Hypokalemia Code(s): E87.6 - HYPOKALEMIA Status: Acute (13) Hypophosphatemia Code(s): E83.39 - OTHER DISORDERS OF PHOSPHORUS METABOLISM Status: Resolved (14) Hypomagnesemia Code(s): E83.42 - HYPOMAGNESEMIA Status: Resolved - Plan old records reviewed/req, continue antibiotics, PT/OT, administrator social welfare Patient is overall doing much better, Continue previous medication Change Protonix p.o. twice daily upon discharge Once longterm home arrangement completed then patient is medically stable for discharge Paperwork is in the chart.
[2020-02-15] MEDS: Nebivolol HCl 5 MG TAB PO SCH (08:57)
[2020-02-15] MEDS: Lisinopril 20 MG TAB PO SCH (08:57)
[2020-02-15] MEDS: Pantoprazole 40 MG VIAL IVP SCH ×2 (08:58→20:07)
--- NOTE | 2020-02-15 15:54 | PDOC.HOSPP ---
- Subjective Encounter Date: 02/15/20 Subjective: The patient is complaining of abdominal pain and inability to tolerate enough oral intake. - Objective Vital Signs & Weight: Vital Signs (12 hours) Temp Pulse Resp BP BP Pulse Ox 02/15/20 14:44 83 177/72 H 96 02/15/20 08:57 175/63 H 95 02/15/20 07:44 98.1 F 78 16 171/62 H 95 Weight Admit Weight 99 lb 8 oz Weight 99 lb 8 oz Most Recent Monitor Data Heart Rate from ECG 96 NIBP 152/75 NIBP BP-Mean 100 Respiration from ECG 21 SpO2 100 I&O: 02/14/20 02/15/20 02/16/20 06:59 06:59 06:59 Intake Total 250 180 Balance 250 180 Result Diagrams: 02/14/20 05:17 02/14/20 05:17 Hospitalist ROS - Medication Medications: Active Medications Generic Name Dose Route Start Last Admin Trade Name Freq PRN Reason Stop Dose Admin Lisinopril 20 mg 02/14/20 09:00 02/15/20 08:57 Lisinopril 20 Mg Tab PO 20 mg DAILY JARET Administration Morphine Sulfate 1 mg 02/10/20 13:35 02/12/20 04:29 Morphine 2 Mg/Ml Vial SLOW IVP 1 mg Q4H PRN Administration Pain Nebivolol 5 mg 02/14/20 09:00 02/15/20 08:57 Nebivolol Hcl 5 Mg Tab PO 5 mg DAILY JARET Administration Pantoprazole Sodium 40 mg 02/07/20 21:00 02/15/20 08:58 Pantoprazole 40 Mg Vial IVP 40 mg Q12HR JARET Administration Sodium Chloride 10 ml 02/07/20 09:00 02/15/20 08:58 Flush - Normal Saline 10 Ml Syringe IVF 10 ml Q12HR JARET Administration - Exam General Appearance: awake alert ENT: normocephalic atraumatic Neck: supple, no JVD Heart: RRR Respiratory: normal chest expansion, no tachypnea Neurological: no weakness, no focal deficits Hosp A/P - Plan Hosp A/P (1) Duodenal ulcer perforation Code(s): K26.5 - CHRONIC OR UNSPECIFIED DUODENAL ULCER WITH PERFORATION Status: Acute (2) S/P exploratory laparotomy Status: Acute (3) Abdominal pain Code(s): R10.9 - UNSPECIFIED ABDOMINAL PAIN Status: Resolved (4) Anemia due to blood loss, chronic Code(s): D50.0 - IRON DEFICIENCY ANEMIA SECONDARY TO BLOOD LOSS (CHRONIC) Status: Acute (5) GI bleed due to NSAIDs Code(s): K92.2 - GASTROINTESTINAL HEMORRHAGE, UNSPECIFIED; T39.395A - ADVERSE EFFECT OF NONSTEROIDAL ANTI-INFLAMMATORY DRUGS, INIT Status: Resolved (6) Peptic ulcer disease with hemorrhage Code(s): K27.4 - CHRONIC OR UNSP PEPTIC ULCER, SITE UNSP, WITH HEMORRHAGE Status: Acute (7) CAD (coronary artery disease) Code(s): I25.10 - ATHSCL HEART DISEASE OF [place] CORONARY ARTERY W/O ANG PCTRS Status: Chronic Qualifiers: Coronary Disease-Associated Artery/Lesion type: [place] artery [place] vs. transplanted heart: [place] heart Associated angina: without angina Qualified Code(s): I25.10 - Atherosclerotic heart disease of [place] coronary artery without angina pectoris (8) Cognitive impairment Code(s): R41.89 - OTH SYMPTOMS AND SIGNS W COGNITIVE FUNCTIONS AND AWARENESS Status: Chronic (9) Dyslipidemia Code(s): E78.5 - HYPERLIPIDEMIA, UNSPECIFIED Status: Chronic (10) HTN (hypertension) Code(s): I10 - ESSENTIAL (PRIMARY) HYPERTENSION Status: Chronic Qualifiers: Hypertension type: essential hypertension (11) UTI (urinary tract infection) Status: Acute Qualifiers: Urinary tract infection type: acute cystitis (12) Hypokalemia Code(s): E87.6 - HYPOKALEMIA Status: Acute (13) Hypophosphatemia Code(s): E83.39 - OTHER DISORDERS OF PHOSPHORUS METABOLISM Status: Resolved (14) Hypomagnesemia Code(s): E83.42 - HYPOMAGNESEMIA Status: Resolved - Plan The patient is tolerating some liquid diet. Bowel movement was reported yesterday. Continue Protonix twice daily. Case management working on placement.
[2020-02-16] MEDS: Pantoprazole 40 MG VIAL IVP SCH (09:20)
[2020-02-16] MEDS: Nebivolol HCl 5 MG TAB PO SCH (09:20)
[2020-02-16] MEDS: Lisinopril 20 MG TAB PO SCH (09:20)
[2020-02-16 12:23] VITALS: TEMP 98.3
--- NOTE | 2020-02-16 12:44 | PQF ---
CLINICAL DOCUMENTATION CLARIFICATION FORM: Dear Date: 02/16/2020 Please exercise your independent, professional judgment in responding to the clarification form. Clinical indicators are provided on the bottom of this form for your review. Please check appropriate box(es): [ >] Protein Calorie Malnutrition: [ ] Mild [ > ] Moderate [ ] Severe [ ] Other Malnutrition (please specify) [ ] Underweight without malnutrition [ ] Cachexia [ ] Other diagnosis [ ] Unable to determine In addition, please specify: Present on Admission (POA): [ > ] Yes [ ] No [ ] Unable to determine For continuity of documentation, please document condition throughout progress notes and discharge summary. Thank You. To be completed by CDI/Coding staff for physician review: CLINICAL INDICATORS - SIGNS / SYMPTOMS / LABS / RESULTS AND LOCATION IN MR The patient is complaining of abdominal pain and inability to tolerate enough oral intake. (PN/Iza) 02/14 Patient remains pleasantly demented today. It sounds like she has been tolerating 50-75% of her clear liquids. Her is at bedside today and states that she has had problems eating for some time. (PRASHANTH/Coy) 02/12 BMI 15.6; Pt has obvious muscle/fat wasting upon visual examination. 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 as evidenced by severe muscle wasting and fat loss present along with non-pitting edema suggestive of severe malnutrition in the context of chronic illness (RD assessment) 02/14 RISK FACTORS / RESULTS AND LOCATION IN MR Perforated duodenal ulcer, S/P exploratory laparotomy, dementia (PRASHANTH/Iza) 02/14 TREATMENT / RESULTS AND LOCATION IN MR Dietary consult (02/09, 02/12, 02/14) Recommend Ensure Enlive TID Moderate Malnutrition (in acute illness) Energy Intake: <75% of estimated energy requirement for > 7 days Weight Loss: 1-2%/1 week; 5%/ 1 month; 7.5%/3 months Other: mild body fat loss; mild muscle mass loss; mild fluid accumulation; Severe Malnutrition (in acute illness) Energy Intake: = 50% of estimated energy requirement for = 5 days Weight Loss: >2%/1 week; >5%/1 month; >7.5%/3 months Other: moderate body fat loss; moderate muscle mass loss; moderate- severe fluid accumulation; measurably reduced field crop grower strength Moderate Malnutrition (in chronic illness) Energy Intake: <75% of estimated energy requirement for =1 month Weight Loss: 5%/1 month; 7.5%/3 months; 10%/6 months; 20%/1 year Other: mild body fat loss; mild muscle mass loss; mild fluid accumulation Severe Malnutrition (in chronic illness) Energy Intake: =75% of estimated energy requirement for =1 month Weight Loss: >5%/1 month; >7.5%/3 months; >10%/6 months; >20%/1 year Other: severe body fat loss; severe muscle mass loss; severe fluid accumulation; measurably reduced field crop grower strength Thank You! CDS Signature: Janeth Orlando RN Phone #: [phone] Date: 02/16/20 This is a permanent part of the Medical Record [facility]
[2020-02-16] MEDS ORDERED: Amlodipine 10 MG TAB PO SCH (13:30)
[2020-02-16 16:25] VITALS: BP 164/73
--- NOTE | 2020-02-17 02:03 | DIS ---
DATE OF ADMISSION: 02/06/2020 DATE OF DISCHARGE: 02/16/2020 DISCHARGE DIAGNOSES: 1. Perforated duodenal ulcer. 2. Gastrointestinal bleeding. 3. Peptic ulcer disease with hemorrhage. 4. Coronary artery disease. 5. Cognitive impairment. 6. Dyslipidemia. 7. Hypertension. 8. Hypokalemia. 9. Hypophosphatemia. 10. Hypomagnesemia. DISCHARGE MEDICATIONS: The patient will continue her home medications with the addition of pantoprazole 40 mg orally twice daily. HISTORY OF PRESENT ILLNESS AND HOSPITAL COURSE: The patient is an 89-year-old female, who was admitted to the hospital initially with complaints of melena. The patient was sent to the hospital from the rehab, where her pain was controlled using NSAIDs. The patient underwent EGD and a shallow ulcer was noted in the first part of the duodenum without stigmata of a recent bleed. The patient underwent BICAP and attempted clipping and epinephrine injection. The postoperative period was complicated by severe abdominal pain. Imaging of the abdomen at that time revealed the presence of free-air. Surgery Service was emergently consulted for suspected bowel perforation. The patient underwent exploratory laparotomy and was diagnosed with a perforated duodenal ulcer. This was treated with Mauri patch. The patient tolerated the procedure well and overall required 2 units of packed RBCs during her hospital stay. Her diet was advanced gradually after the procedure, and she was stable for discharge on 02/16/2020. Job ID: [id number]
== END 2020-02-16 18:57 | DRG 330 ==
LOC: ERS 14:19 → ERHOLD 16:56 → IMCU/EMU 21:50 → T4-B 02-07 20:59
PROVIDERS: ADMIT Family Medicine; ATTEND Internal Medicine
PROC: 30233N1 Transfusion of Nonautologous Red Blood Cells into Peripheral Vein, Percutaneous Approach (ICD-10-PCS; 2020-02-06)
PROC: 0W3P8ZZ Control Bleeding in Gastrointestinal Tract, Via Natural or Artificial Opening Endoscopic (ICD-10-PCS; 2020-02-08)
PROC: 0DB68ZX Excision of Stomach, Via Natural or Artificial Opening Endoscopic, Diagnostic (ICD-10-PCS; 2020-02-08)
PROC: 3E0G8GC Introduction of Other Therapeutic Substance into Upper GI, Via Natural or Artificial Opening Endoscopic (ICD-10-PCS; 2020-02-08)
PROC: 0DU907Z Supplement Duodenum with Autologous Tissue Substitute, Open Approach (ICD-10-PCS; principal; 2020-02-10)
DX: K26.6 Chronic or unspecified duodenal ulcer with both hemorrhage and perforation (principal); N30.00 Acute cystitis without hematuria; D62 Acute posthemorrhagic anemia; E87.1 Hypo-osmolality and hyponatremia; E44.0 Moderate protein-calorie malnutrition; Z68.1 Body mass index [BMI] 19.9 or less, adult; Z20.828 Contact with and (suspected) exposure to other viral communicable diseases; I25.10 Atherosclerotic heart disease of native coronary artery without angina pectoris; E78.5 Hyperlipidemia, unspecified; I10 Essential (primary) hypertension; E87.6 Hypokalemia; E78.00 Pure hypercholesterolemia, unspecified; K21.9 Gastro-esophageal reflux disease without esophagitis; F03.90 Unspecified dementia, unspecified severity, without behavioral disturbance, psychotic disturbance, mood disturbance, and anxiety; E77.8 Other disorders of glycoprotein metabolism; E88.09 Other disorders of plasma-protein metabolism, not elsewhere classified; T39.395A Adverse effect of other nonsteroidal anti-inflammatory drugs [NSAID], initial encounter; E86.0 Dehydration; R41.89 Other symptoms and signs involving cognitive functions and awareness; E83.39 Other disorders of phosphorus metabolism; E83.42 Hypomagnesemia; Z95.5 Presence of coronary angioplasty implant and graft; Z28.21 Immunization not carried out because of patient refusal; Z79.899 Other long term (current) drug therapy; Z79.82 Long term (current) use of aspirin; Z88.8 Allergy status to other drugs, medicaments and biological substances; Z91.018 Allergy to other foods
CPT/HCPCS: 36415; 36430; 51702; 74177; 80048; 80053; 81003; 81015; 82274; 83605; 83735; 84100; 84132; 85014; 85018; 85025; 85610; 85730; 86850; 86900; 86901; 87077; 87086; 87186; 87635; 88305; 88312; 93005; 94760; 96365; 96366; 96375; C9113; J0171; J0360; J0696; J2270; J2370; J2405; J2704; J3010; J3475; J3480; J3490; J7050; J7512; P9016; Q0163; Q9967; U0002; U0003

== ENCOUNTER 2020-05-29 13:09 | Outpatient (CLI) | payer MEDICARE, BC ==
--- NOTE | 2020-05-29 14:19 | CT ---
Exam: Abdomen CT without contrast Pelvic CT without contrast HISTORY: Hydronephrosis COMPARISON: 02/10/2020 FINDINGS: Abdomen CT: Lung bases:Chronic changes. Heart size: Normal heart size. There are coronary calcifications. Aorta: Atherosclerosis. No periaortic fat stranding Solid organs: Limited evaluation by the absence of IV contrast. Grossly no solid organ abnormality Lymph nodes: No gastrohepatic, retrocrural or periportal lymphadenopathy Gallbladder: Contracted, likely due to nonfasting state Mesentery: No mass, lymphadenopathy, free air or free fluid Kidneys: Bilaterally, no hydronephrosis, nephrolithiasis or perinephric fat stranding. Bilateral uret ers have a normal caliber. No hydroureter, periureteral fat stranding or ureterolithiasis. Stable mild fullness of the mid and lower pole left intrarenal collecting system. Alimentary canal: Limited evaluation by the lack of oral contrast. No evidence of a small bowel obstr uction. Normal ileocecal junction. Normal caliber appendix. Copious fecal material in the colon. Correlate for component of constipation. There is diverticulosis, without evidence of diverticulitis. CT PELVIS: No mass, adenopathy, free air or free fluid. Mildly enlarged prostate gland. Urinary bladder: Unremarkable. Osseous structures: No lytic or blastic lesions in the osseous structures. Redemonstration of interna l fixation of a remote left hip fracture. There is leftward curvature of the lumbar spine. IMPRESSION: 1. No evidence of obstructing calculus. 2. Persistent but mild prominence of the mid and lower pole calyces in the left kidney.
== END 2020-05-29 13:10 | disposition home or self-care (01) ==
LOC: BICCT 13:09
PROVIDERS: ATTEND Urology
DX: N13.30 Unspecified hydronephrosis (principal)
CPT/HCPCS: 74176

== ENCOUNTER 2020-09-28 11:26 | Emergency (ER) | payer MEDICARE, BC ==
[2020-09-28 11:54] LABS: #Lymphocytes 1.3 thou/uL (1.20-3.40); #Monocytes 0.9 thou/uL (0.11-0.59); %Basophils 0.3 % (0.0-1.0); %Eosinophils 0.3 % (0.0-10.0); %Lymphocytes 11.5 % (21.0-51.0); %Monocytes 7.9 % (0.0-10.0); Hemoglobin 14.3 g/dL (12.0-16.0); Mean Corpuscular HGB CONC 33.7 g/dL (32.0-36.0); Mean Corpuscular Hemoglobin 30.8 pg (27.0-31.0); Mean Corpuscular Volume 91.4 fL (78.0-98.0); Mean Platelet Volume 6.7 fL (7.4-10.4); Platelet Count 265 thou/uL (130-400); RBC Distribution Width 12.4 % (11.5-14.5); Red Blood Cell (RBC) Count 4.65 mill/uL (4.20-5.40); White Blood Cell (WBC) Count 11.2 thou/uL (4.8-10.8)
[2020-09-28 12:33] LABS: ALT (SGPT) 8 U/L (8-55); AST (SGOT) 15 U/L (5-34); Albumin 4.3 g/dL (3.4-4.8); Alkaline Phosphatase 161 U/L (40-110); Anion Gap 15 mmol/L (10-20); BUN (Urea Nitrogen) 27 mg/dL (9.8-20.1); Bilirubin, Total 0.9 mg/dL (0.2-1.2); Calc. Creatinine Clearance 0 mL/min (70-130); Calcium 9.6 mg/dL (7.8-10.44); Carbon Dioxide 24 mmol/L (23-31); Chloride 101 mmol/L (98-107); Glucose 104 mg/dL (83-110); Protein, Total 7.3 g/dL (5.8-8.1); Sodium 136 mmol/L (136-145)
[2020-09-28 13:29] LABS: Bilirubin Negative (Negative); Blood, Urine Moderate (Negative); Glucose, Urine (Dipstick) Negative (Negative); Ketone, Urine 15 mg/dL (Negative); Leukocyte Negative (Negative); Nitrite Positive (Negative); Protein, Urine (Dipstick) 30 mg/dL (Neg-Trace); Specific Gravity, Urine 1.025 (1.005-1.030); Urobilinogen 0.2 mg/dL (Less than 2)
[2020-09-28 13:32] LABS: Clarity Hazy (Clear)
[2020-09-28 13:37] LABS: Bacteria/HPF 1+ HPF (None Seen)
[2020-09-28] MEDS ORDERED: cefTRIAXone\\ROCEPHIN 2 GM VIAL ONE ×2 (14:05→14:28)
== END 2020-09-28 15:20 | disposition home or self-care (01) ==
LOC: ERS 11:26
DX: N30.00 Acute cystitis without hematuria (principal); E78.5 Hyperlipidemia, unspecified; E78.00 Pure hypercholesterolemia, unspecified; I10 Essential (primary) hypertension; Z79.82 Long term (current) use of aspirin; Z79.899 Other long term (current) drug therapy
CPT/HCPCS: 51701; 70450; 71045; 72125; 80053; 81003; 81015; 85025; 93005; 94760; 96374; J0696